=== PATIENT | female | born 1975 | race Caucasian/White ===

== ENCOUNTER 2022-12-15 08:42 | Outpatient (OUT) | payer OTHER, SELFPAY ==
--- NOTE | 2022-12-15 08:48 | XR_ITS ---
The [address] [address] Patient Name: WYATT GONZALEZ MRN: [id number] date: 1975 Sex: F Assigned Patient Location: [facility] Current Patient Location: RAD Accession/Order Number: [id number] Exam Date: 12/15/2022 08:48 Report Date: 12/15/2022 10:15 At the request of: YOUSUF WOLFF Procedure: XR foot RT min 3V PROCEDURE: XR foot RT min 3V DATE: 12/15/2022 7:48 AM CDT COMPARISONS: 11/16/2021 CLINICAL INDICATION: RIGHT FOOT PAIN FINDINGS: There is no evidence of fractures or other acute osseous abnormalities. There is again mild hallux valgus deformity. There is again osseous prominence of the distal and medial aspect of the first metatarsal with overlying soft tissue prominence consistent with bunion. This is a stable finding from previous exam. XR/XR foot RT min 3V IMPRESSION: Right foot radiographs are stable from 11/07/2021, as discussed above. Electronically authenticated by: ADELAIDA CARSON Date: 12/15/2022 10:15
== END 2022-12-15 08:43 | disposition home or self-care (01) ==
LOC: RAD 08:42
PROVIDERS: Visit Provider Physician Assistant
DX: M79.671 Pain in right foot (principal)
CPT/HCPCS: 73630

== ENCOUNTER 2023-08-24 08:31 | Outpatient (OUT) | payer OTHER, SELFPAY ==
--- NOTE | 2023-08-24 08:55 | ECG_ITS ---
The [facility] Test Date: 2023-08-24 Pat Name: WYATT GONZALEZ Department: Room: - Gender: Female Slurry Mixer: : 1975 Requested By: CHYNA SELLERS Order Number: [id number] Reading MD: NICKY HERNANDEZ Measurements Intervals [place] Rate: 66 P: 76 AK: 165 QRS: 61 QRSD: 89 T: 72 QT: 387 QTc: 406 Interpretive Statements SINUS RHYTHM No previous ECG available for comparison Electronically Signed On 08-24-2023 23:02:07 EDT by NICKY HERNANDEZ
--- NOTE | 2023-08-24 09:33 | P.GSHP_ITS ---
History of Present Illness History of Present Illness Chief complaint: right foot hallux valgus Narrative: Patient presents for preadmission testing. The patient reports a long history of right foot bunion deformity and hammertoes. She states she has tried many conservative treatments with no relief, she states she has one pair shoes that she feels she can tolerate at this time. She denies numbness, tingling, weakness, or any other complaints. Review of Systems ROS Narrative REVIEW OF SYSTEMS: Negative except as stated in HPI, ten or more systems reviewed. Constitutional: No fever , chills, weakness ENT: No sore throat or epistaxis Cardiovascular: No edema, chest pain, palpitations, or activity intolerance Respiratory: No shortness of breath, cough, or wheezing Gastrointestinal: No abdominal pain, constipation, diarrhea, or vomiting Genitourinary: No dysuria or hematuria Neurological: No numbness, tingling, weakness, or headache Psychiatric: No mood changes PFSH PFS Medical History (Updated 08/24/23 @ 09:32 by Landy Cedillo NP) Hammertoe of right foot ?M20.41 - Other hammer toe(s) (acquired), right foot (ICD-10) Other specified joint disorders, right ankle and foot ?M25.871 - Other specified joint disorders, right ankle and foot (ICD-10) Toe deformity ?M20.60 - Acquired deformities of toe(s), unspecified, unspecified foot (ICD- 10) Hallux valgus (acquired), right foot ?M20.11 - Hallux valgus (acquired), right foot (ICD-10) Anxiety ?F41.9 - Anxiety disorder, unspecified (ICD-10) Migraine ?G43.909 - Migraine, unspecified, not intractable, without status migrainosus (ICD-10) Hypotension ?I95.9 - Hypotension, unspecified (ICD-10) Surgical History (Updated 08/24/23 @ 09:17 by Landy Cedillo NP) History of hysterectomy ?Z90.710 - Acquired absence of both cervix and uterus (ICD-10) History of breast augmentation ?Z98.82 - Breast implant status (ICD-10) Family History (Updated 08/24/23 @ 09:17 by Landy Cedillo NP) Other Family history of DVT Family history of hypertension Family history of lung cancer Family history of myocardial infarction Social History (Updated 08/24/23 @ 09:12 by Landy Cedillo NP) Within the past year, how often did you have a drink containing alcohol: 2-4 times a month Smoking status: Former smoker Non-prescribed substance use: denies use 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 Highest level of school completed/degree received: high school graduate Meds Home Medications and Allergies Home Medications ?Medication ?Instructions ?Recorded ?Confirmed ?Type clonazepam 1 mg tablet 1 mg PO DAILY 08/24/23 08/24/23 History conjugated estrogens 0.625 mg 0.625 mg PO DAILY 08/24/23 08/24/23 History tablet (Premarin) sumatriptan succinate 50 mg tablet 50 mg PO Q2H PRN migraine headache 08/24/23 08/24/23 History Allergies Allergy/AdvReac Type Severity Reaction Status Date / Time No Known Drug Allergies Allergy Verified 08/24/23 09:10 Exam Narrative Exam Narrative: Constitutional: Awake, alert, comfortable, well-appearing, nontoxic, interactive, vital signs as charted Head: Normocephalic, atraumatic Neck: Supple, normal appearance, normal range of motion, no meningeal signs, no lymphadenopathy Respiratory: No respiratory distress, breath sounds clear Cardiovascular: Regular rate and rhythm, strong and regular heart tones Musculoskeletal: Normal gait, no swelling or edema, Right foot obvious hallux valgus deformity with limited range of motion of the 1st MPJ, 2nd toe contracture noted, good capillary refill, sensation intact Skin: No rashes or induration, no lesions, only visible skin inspected Neuro: No neurological deficits, normal sensation Psychiatric: Oriented ?3, normal affect Assessment and Plan Assessment and Plan (1) Hammertoe of right foot: (2) Other specified joint disorders, right ankle and foot: (3) Toe deformity: (4) Hallux valgus (acquired), right foot: Plan Right 1st MPJ fusion, 2nd metatarsal osteotomy and correction of 2nd toe contracture with soft tissue balancing and bone graft as needed scheduled with Dr. Figueroa 09/07/2023.
== END 2023-08-24 08:32 | disposition home or self-care (01) ==
LOC: PST 08:34
PROVIDERS: PCP Family Medicine; Visit Provider Podiatrist Foot & Ankle Surgery
DX: Z01.810 Encounter for preprocedural cardiovascular examination (principal); Z01.818 Encounter for other preprocedural examination; M20.11 Hallux valgus (acquired), right foot; M20.41 Other hammer toe(s) (acquired), right foot
CPT/HCPCS: 93005; G0463

== ENCOUNTER 2023-09-07 07:16 | Day surgery (SDC) | payer OTHER, SELFPAY ==
[2023-08-24 09:26] VITALS: BP 113/76; PULSE 74; RESP 18; TEMP 36.2; O2SAT 98; BMI 20.2
[2023-09-07] VITALS (12 sets, daily range): BP systolic 97–110; BP diastolic 54–75; PULSE 62–73; TEMP 36.1–36.4; O2SAT 95–99; BMI 21.2
--- NOTE | 2023-09-07 | FL_ITS ---
[address] [address] Patient Name: WYATT GONZALEZ MRN: [id number] date: 1975 Sex: F Assigned Patient Location: [facility] Current Patient Location: [facility] Accession/Order Number: [id number] Exam Date: 09/07/2023 10:20 Report Date: 09/08/2023 08:12 At the request of: LULU FARIAS Procedure: FL fluoroscopy <1hr NON-READ EXAM: FL fluoroscopy <1hr NON-READ HISTORY: TECHNIQUE: FINDINGS: Please see Operative Report. Electronically authenticated by: RADIOLOGIST NO Date: 09/08/2023 08:12
[2023-09-07 07:26] LABS: Basophils Percent Auto 0.6 % (0.2-2.0); Eosinophils Absolute Auto 0.3 10^3/uL (0.0-0.7); Eosinophils Percent Auto 3.6 % (0.9-7.0); Hematocrit 37.8 % (36.0-48.0); Hemoglobin 12.1 g/dL (12.0-16.0); Immature Granulocytes Abs Auto 0.02 10^3/uL (0.00-0.03); Immature Granulocytes Pct Auto 0.3 % (0.0-0.5); Lymphocytes Absolute Auto 2.6 10^3/uL (1.2-3.8); Mean Corpuscular Hemoglobin 29.1 pg (26.7-34.0); Mean Corpuscular Volume 90.9 fL (81.0-99.0); Mean Platelet Volume 10.3 fL (9.5-13.5); Monocytes Absolute Auto 0.5 10^3/uL (0.3-0.8); Monocytes Percent Auto 7.4 % (1.7-12.0); Neutrophils Absolute Auto 3.7 10^3/uL (1.4-6.5); Neutrophils Percent Auto 52.1 % (43.0-75.0); Platelet Count 222 10^3/uL (150-450); Red Blood Count 4.16 10^6/uL (4.20-5.40); Red Cell Distribution Width 12.9 % (11.0-15.0); White Blood Count 7.2 10^3/uL (4.0-11.0)
[2023-09-07 07:43] LABS: Glucometer 92 mg/dL (74-106)
[2023-09-07] MEDS: LACTATED RINGER'S SOLUTION 1,000 ML 50 ML IV ×2 (07:44→10:39)
--- NOTE | 2023-09-07 09:03 | PC.NURSE ---
Patient was consented by Dr. Delgado for regional block, Time out was completed at 0832. Monitors and O2 placed on patient. Patient positioned for first block on her back. Block was completed from 0836 to 0840 without complication. Patient was then repositioned onto her side and a popliteal block was performed from 0843 to 0846. Bedside ultrasound was used to locate both areas. Patient tolerated both areas well. Monitors and O2 remain in place. Vitals remained stable throughout process and post block.
[2023-09-07] MEDS: CEFAZOLIN SODIUM/DEXTROSE,ISO 2 GM/50 ML PIGGYBACK IV (09:47)
--- NOTE | 2023-09-07 11:55 | XR_ITS ---
The [address] [address] Patient Name: WYATT GONZALEZ MRN: [id number] date: 1975 Sex: F Assigned Patient Location: [facility] Current Patient Location: Accession/Order Number: [id number] Exam Date: 09/07/2023 12:00 Report Date: 09/08/2023 07:26 At the request of: MIKI ELIAS Procedure: XR foot RT min 3V PROCEDURE: XR foot RT min 3V HISTORY: Postop x-ray pacu. COMPARISON: XR foot right 12/15/2022 FINDINGS: BONES:Mechanical fusion of the first metatarsophalangeal joint via dorsal plate and screws. Resection of head of second proximal phalanx. SOFT TISSUES:Small amount of dorsal subcutaneous air consistent with recent surgery. EFFUSION:None visible. OTHER: Images were obtained to cast material which slightly limits evaluation. XR/XR foot RT min 3V IMPRESSION: 1. Postoperative findings detailed above. Electronically authenticated by: MODESTA DIALLO Date: 09/08/2023 07:26
[2023-09-07 12:22] LABS: Glucometer 108 mg/dL (74-106)
--- NOTE | 2023-09-07 13:34 | PM.ORONB ---
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 First metatarsal phalangeal joint fusion 2. 2nd hammertoe correction with PIPJ arthroplasty 3. correction of 2nd metatarsal phalangeal joint contracture with capsulotomy and extensor tendon lengthening *All procedures were performed on the RIGHT foot INDICATION FOR PROCEDURE: patient is a 48-year-old healthy female who has had worsening pain and dysfunction associated with primarily her right great toe but also pain associated with the 2nd toe primarily at the tip of the toe in shoes as well as over the dorsal aspect of the proximal interphalangeal joint. Over the last couple of years she has had difficulty with finding comfortable shoes and pain was affecting activities of daily living including work and exercise. I discussed potential risks and benefits of surgical intervention versus continued nonsurgical treatment nature worsening pain which did not respond to nonsurgical treatment including shoe and activity modification and OTC pain medicine she wished to undergo the above procedures. INTRAOPERATIVE FINDINGS: Great toe is in a valgus position which abutted the 2nd toe. deformity of the 1st and 2nd toes were reducible . Range of motion of the 1st MPJ was track bound. Bone quality is within normal limits given patient's age and gender. Once the PIPJ deformity was corrected there is residual deformity and contracture of the 2nd metatarsal phalangeal joint. The combination of capsulotomy and extensor tendon lengthening corrected all residual malalignment in the 2nd metatarsophalangeal joint. The plantar plate was intact with direct visualization. PROCEDURE IN DETAIL: Patient was identified in pre op and consent was reviewed. Correct side and site were identified and marked. Pre-op antibiotics were started. Patient was brought to OR suite and place on table in a supine position. General anesthesia was administered. A tourniquet was applied. Operative extremity was prepped and draped in usual sterile fashion. Formal time-out was performed and the foot/ankle were exsanguinated and tourniquet inflated. Incision created over dorsal aspect of the 1st MPJ. Bleeders coagulated. EHL protected throughout the procedure. Capsulotomy performed and McGlammry elevator inserted into 1st MPJ. Guide Pin place in 1st metatarsal head. Conical reamers used on 1st metatarsal head to remove cartilage and subchondral bone. Guide pin removed. Conical reamers used on proximal phalanx in a similar manner. 2.0 mm drill used to on each side of the joint. The site was irrigated. 1cc of bone allograft graft was then packed into the fusion site. A stab incision was placed on the medial aspect of the hallux and blunt dissection down to the proximal phalanx base was performed. A guide wire was then used to pin the MPJ in a rectus position under fluoroscopic guidance. Position was checked both on the table and under fluoroscopy. A saw was used to contour the dorsal aspect of the 1st metatarsal and proximal phalanx to accommodate plate fixation. A 3.[address] over the fusion site and temporarily fixed. Then commercial airplane pilot holes were drilled for locking 3.5 mm screws which were measured and placed according to the manufactor's standard directions. Temporary fixation was removed and additional screws were placed. Again position was checked under fluoroscopy as well as on the table however it was noted that the joint had slightly distracted. To correct this issue the proximal three plate screws were removed as was the guidewire. I then held the reduction of the toe with good bony apposition of the 1st metatarsoophalangeal joint while my clinical assistant drilled the holes for the proximal plate screws. Two locking screws and one nonlocking screw placed accordingly. Position and hardware was checked under fluoroscopy as well as under direct visualization noting good bony apposition, stable hardware and rectus position of the great toe. Sagittal saw was used to remove residual medial eminence and the head was contoured with a rasp. Then a guidewire was placed from the proximal phalanx base at the medial aspect through the previously placed stab incision under fluoroscopy. Screw length was measured and the pin was advanced into the 2nd metatarsal. A countersink was used followed by a cannulated drill. Then a 3.5 mm cannulated screw was placed according to the advanced practice registered nurse's directions. Again position of the great toe and hardware placement were checked on the table and under fluoroscopy. The surgical site was irrigated with copious amounts of sterile saline. The incision was then closed in layers. With attention to the 2nd digit a dorsal linear incision was created over the PIPJ. Sharp and blunt dissection down to the extensor tendon was performed. The tendon was incised transversely then reflected proximally. A sagittal saw was used to remove the proximal phalanx head. The site was flushed with sterile saline. there was correction of the deformity at the PIPJ however there was residual deformity and contracture of the metatarsophalangeal joint. The incision was then extended proximally to the 2nd metatarsal head and a combination sharp and blunt dissection gained access to the capsule of the metatarsophalangeal joint which was released sharply with a scalpel and then with a McGlamry elevator. All residual deformity was now corrected however within the extensor tendon was reapproximated and resulted in dorsiflexion at the metatarsophalangeal joint therefore decision was made to perform extensor tendon lengthening. The proximal stump of the tendon was transected longitudinally allowing the medial slip of the tendon to be reflected distally which was then reapproximated to the distal stump at the level of the PIPJ. The tendon was repaired with absorbable suture. surgical site was irrigated with copious saline and the incision was closed in layers. The tourniquet was deflated and a prompt hyperemic response was noted. A dry sterile dressing consisting of Xeroform on the incisions followed by 4 x 4 gauze, ABDs, and Kerlix were applied. Multiple layers of cast padding were then applied to ensure all bony prominences were well-padded. A plaster posterior splint was then applied which was held in place by Ricky wraps. Capillary refill time to all digits was evaluated and had appropriate response. POSTOPERATIVE PLAN: Discharge home under family's care Post op instructions provided verbally and written prescription(s) were placed in chart NWB operative foot/ankle x1 wk Follow-up in 1 week Implants: Medline plate/screws [employer] allograft Anesthesia: regional and General-LMA Surgeon: Andrae Figueroa [employer] Architect: Sukhjinder Dai Estimated blood loss (mL): 10 Pathology: none sent Condition: stable Disposition: PACU
== END 2023-09-07 13:20 | disposition home or self-care (01) ==
PROVIDERS: PCP Family Medicine; Visit Provider Podiatrist Foot & Ankle Surgery
PROC: (CPT 1470; principal; 2023-09-07 08:55)
DX: M20.11 Hallux valgus (acquired), right foot (principal); M20.41 Other hammer toe(s) (acquired), right foot; M24.574 Contracture, right foot; F41.9 Anxiety disorder, unspecified; Z90.710 Acquired absence of both cervix and uterus; Z98.82 Breast implant status; Z87.891 Personal history of nicotine dependence; M20.5X1 Other deformities of toe(s) (acquired), right foot; M25.871 Other specified joint disorders, right ankle and foot
CPT/HCPCS: 28234; 28285; 28750; 36415; 64445; 64447; 73630; 76000; 82948; 85025; C1713; J1094; J2704

== ENCOUNTER 2023-09-28 10:29 | Outpatient (OUT) | payer OTHER, SELFPAY ==
--- NOTE | 2023-09-28 | XR_ITS ---
The [address] [address] Patient Name: WYATT GONZALEZ MRN: [id number] date: 1975 Sex: F Assigned Patient Location: Current Patient Location: Accession/Order Number: [id number] Exam Date: 09/28/2023 10:32 Report Date: 09/28/2023 13:04 At the request of: YOUSUF WOLFF Procedure: XR foot RT min 3V PROCEDURE: XR foot RT min 3V COMPARISON: , 12/15/2022 HISTORY: RIGHT FOOT PAIN FINDINGS: BONES:Stable dorsal fusion first metatarsal-phalangeal joint with no acute fracture, dislocation or mechanical failure. Shave osteotomy medial head of the first metatarsal. Remote resection head of the second proximal phalanx. SOFT TISSUES:Negative. No visible soft tissue swelling. EFFUSION:None visible. OTHER: Negative. XR/XR foot RT min 3V IMPRESSION: Stable postsurgical changes with no mechanical failure Electronically authenticated by: FILIBERTO CHASE Date: 09/28/2023 13:04
== END 2023-09-28 10:30 | disposition home or self-care (01) ==
LOC: EC 10:30
PROVIDERS: PCP Family Medicine; Visit Provider Physician Assistant
DX: M20.11 Hallux valgus (acquired), right foot (principal); Z98.890 Other specified postprocedural states
CPT/HCPCS: 73630

== ENCOUNTER 2023-10-18 09:26 | Outpatient (OUT) | payer OTHER, SELFPAY ==
--- NOTE | 2023-10-18 | XR_ITS ---
The [address] [address] Patient Name: WYATT GONZALEZ MRN: [id number] date: 1975 Sex: F Assigned Patient Location: Current Patient Location: Accession/Order Number: [id number] Exam Date: 10/18/2023 09:27 Report Date: 10/18/2023 11:17 At the request of: LULU FARIAS Procedure: XR foot RT min 3V PROCEDURE: XR foot RT min 3V COMPARISON: 09/28/2023 HISTORY: RIGHT FOOT PAIN FINDINGS: BONES:Stable fusion the first metatarsal-phalangeal joint with a dorsal plate and multiple screws. No acute fracture, dislocation or mechanical failure. SOFT TISSUES:Negative. No visible soft tissue swelling. EFFUSION:None visible. OTHER: Negative. XR/XR foot RT min 3V IMPRESSION: Stable fusion first metatarsal-phalangeal joint Electronically authenticated by: FILIBERTO CHASE Date: 10/18/2023 11:17
--- OUTSIDE RECORDS SUMMARY | 2023-10-18 09:41 | XMS_ITS | CCD ---
Author Organization [facility] Care Team Providers Care [facility] Social Worker Name Role Phone ALISHA SELLERS Primary Care Physician VERITO, DR ALISHA Carpio Admitting Unavailable VERITO, DR ALISHA Carpio Attending Unavailable VERITO, DR ALISHA Carpio Primary Care Unavailable SELLERS, DR ALISHA Carpio Consulting Unavailable YOUSUF WOLFF Admitting Unavailable YOUSUF WOLFF Attending Unavailable VERITO, DR ALISHA Carpio Primary Care Unavailable [place], DR FILIBERTO Prince Consulting Unavailable YOUSUF WOLFF Consulting Unavailable VERITO, DR ALISHA Carpio Admitting Unavailable VERITO, DR ALISHA Carpio Attending Unavailable VERITO, DR ALISHA Carpio Primary Care Unavailable VERITO, DR ALISHA Carpio Consulting Unavailable Bernabe Eller Attending Unavailable Misty NELSON Attending Unavailable Sharan Asher Attending Unavailable Misty NELSON Attending Unavailable Misty NELSON Admitting Unavailable Alisha Sellers Unavailable MD Alisha Sellers Primary Care Provider DO Hannah Luu Attending Provider Kedar Diaz Unavailable HANNAH LUU Attending Unavailable ANGEL RIZO Attending Unavailable MD Alisha Sellers Primary Care Provider KIRAN Cedillo Attending Provider [phone] Alisha Sellers Primary Care Unavailable Natalia Cedillo Admitting Unavailable Natalia Cedillo Attending Unavailable Alisha Sellers Primary Care Unavailable Hannah Luu Admitting Unavailable Hannah Luu Attending Unavailable Allergies Allergy Classification Reported Allergen(s) Allergy Type Date of Onset Reaction(s) Facility (2 sources) patient allergy list reviewed by nurse or physicia Propensity to adverse reactions 4 Comment:Done [facility] Other (2 sources) NONE KNOWN ALLERGIES Propensity to adverse reactions 4 Unknown [facility] Other (2 sources) Allergies Reconciled Propensity to adverse reactions Unknown [facility] Other Medications Current Medications Medication Drug Class(es) Dates Sig (Normalized) Sig (Original) acetaminophen 325 mg / HYDROcodone bitartrate 5 mg oral tablet (3 sources) Opioid Agonist Start: 11-03-2019 [place] 325 mg-5 mg oral tablet 1 tab(s), Oral, q4hr for pain, 12 tab(s), Refill(s) 0 Start Date: 11/03/19 Status: Ordered alendronic acid 70 mg oral tablet (2 sources) Bisphosphonate Start: 09-12-2023 take 70 mg by mouth every week Alendronate Active 70 MG PO every week September 12, 2023 12:00am 24 hr amphetamine aspartate 3.75 mg / amphetamine sulfate 3.75 mg / dextroamphetamine saccharate 3.75 mg / dextroamphetamine sulfate 3.75 mg extended release oral capsule (3 sources) Central Nervous System Stimulant Start: 03-15-2019 amphetamine-dextr oamphetamine 15 mg oral capsule, extended release Refill(s) 0 Start Date: 03/15/19 Status: Ordered azithromycin 250 mg oral tablet (1 source) Macrolide Antimicrobial Start: 12-29-2021 azithromycin 250 mg Tab 250 mg, Oral, As Directed, # 6 tab(s), Refills(s) 0, Pharmacy: [id number], 155, cm, 12/29/21 20:14:00 EDT, Height/Length Dosing, 49, kg, 12/29/21 20:14:00 EDT, Weight Dosing Start Date: 12/29/21 Status: Ordered brompheniramine maleate 0.4 mg/ml / dextromethorphan hydrobromide 2 mg/ml / pseudoephedrine hydrochloride 6 mg/ml oral solution (3 sources) alpha-Adrenergic Agonist, Uncompetitive O-muzohv-C-aspartat e Receptor Antagonist, Sigma-1 Agonist Start: 03-15-2019 take 10 mL by mouth four times daily Bromfed DM oral syrup 10 mL, Oral, QID for cold symptoms, 200 mL, Refill(s) 0, [facility] #[id number] Start Date: 03/15/19 Status: Ordered buPROPion hydrochloride 75 mg oral tablet (9 sources) Aminoketone Start: 11-07-2021 buPROPion 75 mg Tab Refills(s) 0 Start Date: 11/07/21 Status: Ordered busPIRone hydrochloride 5 mg oral tablet (2 sources) Start: 09-12-2023 take 5 mg by mouth twice daily Buspirone Active 5 MG PO Twice daily September 12, 2023 12:00am clonazePAM 1 mg oral tablet (16 sources) Benzodiazepine Start: 07-20-2023 End: 09-19-2023 take 1 mg by mouth once daily Clonazepam Active 1 MG PO Daily September 19, 2023 2:56pm Start: 03-24-2023 take 1 tablet by kevin th once daily clonazePAM 1 MG TAKE 1 TABLET BY MOUTH EVERY DAY for Feb, Active Start: 12-26-2022 clonazePAM 1 M G TAKE 1 TABLET BY MOUTH EVERY DAY FOR 30 DAYS Orally Once a day for 30 Nov, Active Start: 09-26-2022 clonazePAM 1 M G TAKE 1 TABLET BY MOUTH EVERY DAY FOR 30 DAYS for 30 September, Active Start: 06-28-2022 take 1 tablet by kevin th every twenty-four hours KlonoPIN 1 MG 1 tablet Orally Once a day for 30 days May, Active Start: 03-15-2019 clonazepam 0.5 mg oral tablet Refills(s) 0 Start Date: 03/15/19 Status: Ordered estrogens, conjugated (correction) 0.625 mg oral tablet (14 sources) Estrogen Start: 09-11-2023 take 1 tablet by mouth once daily Conjugated Estrogens (Premarin) 0.625 mg tablet Active 1 TAB PO Daily September 11, 2023 12:00am [employer] tablet Orally ONCE A DAY; Note: Source Status: Taking; Provider: Verito Brito ( ) Start: 03-15-2019 Premarin 0.625 mg Tab Refills(s) 0 Start Date: 11/07/21 Status: Ordered hydrocortisone 25 mg/ml topical cream (10 sources) Corticosteroid Start: 09-11-2023 End: 09-12-2023 Hydrocortisone Active 1 APPLIC TOPICAL Daily September 12, 2023 11:05am [employer] application Externally Once a day; Note: Source Status: Taking; Provider: Verito Brito ( ) Hydrocortisone 2 .5 % 1 application Externally Once a day Active metroNIDAZOLE 500 mg oral tablet (2 sources) Nitroimidazole Antimicrobial Start: 11-07-2021 End: 11-14-2021 take 1 tablet by mouth every twelve hours Flagyl 500 mg Tab 500 mg = 1 tab(s), Oral, q12hr, X 7 day(s), # 14 tab(s), Refills(s) 0, [facility]: [id number], 156, cm, 11/07/21 14:59:00 EDT, Height/Length Dosing, 49.8, kg, 11/07/21 14:59:00 EDT, Weight Dosing Start Date: 11/07/21 Stop Date: 11/14/21 Status: Ordered Mucinex D Max Strength oral tablet, extended release (1 source) Start: 12-29-2021 End: 01-05-2022 Mucinex D Max Strength oral tablet, extended release 1 tab(s), Oral, q12hr for 7 day(s), 14 tab(s), Refill(s) 0, [id number], 155, cm, 12/29/21 20:14:00 EDT, Height/Length Dosing, 49, kg, 12/29/21 20:14:00 EDT, Weight Dosing Start Date: 12/29/21 Stop Date: 01/05/22 Status: Ordered SUMAtriptan 50 mg oral tablet (2 sources) Serotonin-1b and Serotonin-1d Receptor Agonist Start: 09-11-2023 take 1 tablet by mouth twice daily as needed, then take 1 tablet by mouth twice daily as needed Sumatriptan Succinate Active 1 TAB PO Twice daily September 11, 2023 12:00am FreeTextSi tablet at least 2 hours between doses as needed Orally Twice a day; Note: Source Status: Start; Refills: 2; Provider: Sellers Alisha E Ventolin HFA 90 mcg/inh Aerosol (3 sources) Start: 03-15-2019 take 2 puff(s) by inhalation once for wheezing Ventolin HFA 90 mcg/inh Aerosol 2 puff(s), Inhalation, Once for wheezing, 18 gram, Refill(s) [id number] Start Date: 03/15/19 Status: Ordered Completed/Discontinued Medications Medication Drug Class(es) Dates Sig (Normalized) Sig (Original) cefuroxime 500 mg oral tablet (6 sources) Cephalosporin Antibacterial Start: 03-23-2016 take 1 tablet by mouth twice daily Ceftin 500 MG 1 tablet Orally Twice a day for 10 day(s) Feb, Not-Taking fluconazole 150 mg oral tablet (12 sources) Azole Antifungal Start: 03-23-2016 take 1 tablet by mouth every twenty-four hours Diflucan 150 MG 1 tablet Orally Once a day for 1 day(s) Feb, Not-Taking Fluconazole 100 MG 1 tablet Orally Active venlafaxine 75 mg oral tablet (6 sources) Serotonin and Norepinephrine Reuptake Inhibitor take 1 tablet by mouth once daily at mealtime Effexor 75 MG 1 tablet with food Orally ONCE A DAY Not-Taking Problems Active Problems Problem Classification Problem Date Documented Date Episodic/Chronic Acquired foot deformities (8 sources) Acquired hallux valgus; Translations: [Hallux valgus (acquired), right foot] Chronic Acquired foot deformities (2 sources) Bunion; Translations: [Bunion of unspecified foot] 09-12-2023 Episodic Administrative/social admission (2 sources) Counseling about tobacco use; Translations: [Tobacco abuse counseling] Episodic Anxiety disorders (20 sources) Anxiety; Translations: [Anxiety disorder, unspecified] Onset: 08-01-2013 03-15-2019 Chronic Attention-deficit, conduct, and disruptive behavior disorders (11 sources) Attention deficit hyperactivity disorder, predominantly inattentive type; Translations: [Attention and concentration deficit] Onset: 04-30-2018 03-15-2019 Chronic Cardiac dysrhythmias (6 sources) Tachycardia; Translations: [Tachycardia, unspecified] Episodic Genitourinary symptoms and ill-defined conditions (1 source) Dysuria; Translations: [Dysuria] Onset: 11-07-2021 Episodic Hemorrhoids (10 sources) Internal hemorrhoids; Translations: [Other hemorrhoids] 09-12-2023 Episodic Inflammation; infection of eye (except that caused by tuberculosis or sexually transmitteddisease) (8 sources) Conjunctivitis; Translations: [Unspecified conjunctivitis] Episodic Inflammatory diseases of female pelvic organs (2 sources) Acute vaginitis; Translations: [Acute vaginitis] Episodic Mood disorders (10 sources) Acute depression; Translations: [Acute depression] Onset: 11-03-2015 Chronic Mycoses (8 sources) Candidiasis of vagina; Translations: [Vaginal candidiasis] Onset: 02-21-2009 Episodic Nonmalignant breast conditions (2 sources) Fibrocystic disease of breast; Translations: [Diffuse cystic mastopathy] Onset: 03-29-2008 Chronic Other connective tissue disease (14 sources) Pain in limb; Translations: [Pain in right toe(s)] Episodic Other connective tissue disease (2 sources) Pain in right foot; Translations: [Pain in right foot] Episodic Other female genital disorders (1 source) Noninflammatory disorder of the vagina; Translations: [Other specified noninflammatory disorders of vagina] Onset: 11-07-2021 Episodic Other nervous system disorders (2 sources) Reduced concentration; Translations: [Attention and concentration deficit] Chronic Other nutritional; endocrine; and metabolic disorders (2 sources) Body mass index less than 20; Translations: [Body mass index (BMI) 19.9 or less, adult] Episodic Other upper respiratory infections (8 sources) Bacterial sinusitis; Translations: [Chronic sinusitis, unspecified] Chronic Residual codes; unclassified (8 sources) Insomnia; Translations: [Insomnia, unspecified] Episodic Spondylosis; intervertebral disc disorders; other back problems (8 sources) Cervical spondylosis without myelopathy; Translations: [Spondylosis without myelopathy or radiculopathy, cervical region] Chronic Spondylosis; intervertebral disc disorders; other back problems (1 source) Radiculopathy, cervical region Episodic Substance-related disorders (6 sources) Tobacco user; Translations: [Nicotine dependence, cigarettes, uncomplicated] Chronic Unclassified (2 sources) Acute candidiasis of vulva and vagina; Translations: [Acute candidiasis of vulva and vagina] Unclassified (2 sources) Exposure to acute respiratory syndrome coronavirus 2; Translations: [Contact with and (suspected) exposure to COVID-19] Unclassified (1 source) Encounter for screening mammogram for malignant neoplasm of breast; Translations: [Encounter for screening mammogram for malignant neoplasm of breast] Onset: 12-03-2022 Past or Other Problems Problem Classification Problem Date Documented Date Episodic/Chronic Immunizations and screening for infectious disease (2 sources) Exposure to sexually transmissible disorder; Translations: [Contact with or exposure to venereal diseases] Onset: 02-21-2009 Episodic Nonspecific chest pain (2 sources) Chest pain; Translations: [Chest pain, unspecified] Onset: 04-16-2014 Episodic Other connective tissue disease (4 sources) Pain in right foot; Translations: [PAIN IN RIGHT FOOT] Onset: 11-16-2021 Episodic Other injuries and conditions due to external causes (2 sources) Contusion; Translations: [Contusion of unspecified site] Onset: 05-01-2017 Episodic Other upper respiratory infections (4 sources) Acute sinusitis, unspecified; Translations: [Acute pharyngitis] Onset: 05-01-2017 Episodic Sprains and strains (2 sources) Neck sprain; Translations: [Neck sprain and strain] Onset: 08-01-2013 Episodic Results Test Name Value Interpretation Reference Range Facility Alanine aminotransferase [En zymatic activity/volume] in Serum or PlasmaOrdered By: Natalia Cedillo on 10-04-2023 ALT [Catalytic activity/Vol] 18 U/L 7-52 [facility] Albumin [Mass/volume] in Ser um or Plasma by Bromocresol green (BCG) dye binding methoOrdered By: Natalia Cedillo on 10-04-2023 Albumin BCG dye [Mass/Vol] 4.8 g/dL 3.5-5.7 [facility] Alkaline phosphatase [Enzyma tic activity/volume] in Serum or PlasmaOrdered By: Natalia Cedillo on 10-04-2023 ALP [Catalytic activity/Vol] 48 U/L 34-104 [facility] Aspartate aminotransferase [ Enzymatic activity/volume] in Serum or PlasmaOrdered By: Natalia Cedillo on 10-04-2023 AST [Catalytic activity/Vol] 20 U/L 13-39 [facility] Bilirubin.total [Mass/volume ] in Serum or PlasmaOrdered By: Natalia Cedillo on 10-04-2023 Bilirubin [Mass/Vol] 0.6 mg/dL 0.3-1.[address] [facility] CMP with reflex to A1Con Albumin [Mass/Vol] 4.8 g/dL Normal 3.5-5.7 [facility] Comment on above: Performed By: #### N ICOTINE QUAL #### [facility] , #### TSH3, CBCNO, CMP wRFX A1C, LIPID #### [facility] [address] Albumin/Globulin [Mass ratio] 1.7 {ratio} Normal [facility] Comment on above: Performed By: #### N ICOTINE QUAL #### [facility] , #### TSH3, CBCNO, CMP wRFX A1C, LIPID #### [facility] [address] ALP [Catalytic activity/Vol] 48 U/L Normal 34-104 [facility] Comment on above: Performed By: #### N ICOTINE QUAL #### [facility] , #### TSH3, CBCNO, CMP wRFX A1C, LIPID #### [facility] [address] [place] [address] [place] ALT [Catalytic activity/Vol] 18 U/L Normal 7-52 [facility] Comment on above: Performed By: #### N ICOTINE QUAL #### [facility] , #### TSH3, CBCNO, CMP wRFX A1C, LIPID #### [facility] [address] [place] [address] [place] Anion gap [Moles/Vol] 10.0 mmol/L Normal 6.0-15.0 [facility] Comment on above: Performed By: #### N ICOTINE QUAL #### [facility] , #### TSH3, CBCNO, CMP wRFX A1C, LIPID #### [facility] [address] AST [Catalytic activity/Vol] 20 U/L Normal 13-39 [facility] Comment on above: Performed By: #### N ICOTINE QUAL #### [facility] , #### TSH3, CBCNO, CMP wRFX A1C, LIPID #### [facility] [address] [place] [address] Bilirubin [Mass/Vol] 0.6 mg/dL Normal 0.3-1.0 [facility] Comment on above: Performed By: #### N ICOTINE QUAL #### [facility] , #### TSH3, CBCNO, CMP wRFX A1C, LIPID #### [address] Calcium [Mass/Vol] 10.0 mg/dL Normal 8.6-10.3 [facility] Comment on above: Performed By: #### N ICOTINE QUAL #### [facility] , #### TSH3, CBCNO, CMP wRFX A1C, LIPID #### [address] Chloride [Moles/Vol] 103 mmol/L Normal 98-107 [facility] Comment on above: Performed By: #### N ICOTINE QUAL #### [facility] , #### TSH3, CBCNO, CMP wRFX A1C, LIPID #### [place] [address] [place] CO2 [Moles/Vol] 29.6 mmol/L Normal 21.0-31.0 [facility] Comment on above: Performed By: #### N ICOTINE QUAL #### [facility] , #### TSH3, CBCNO, CMP wRFX A1C, LIPID #### [facility] [address] [place] [address] [place] Creatinine [Mass/Vol] 0.86 mg/dL Normal 0.60-1.20 [facility] Comment on above: Performed By: #### N ICOTINE QUAL #### [facility] , #### TSH3, CBCNO, CMP wRFX A1C, LIPID #### [place] [address] [place] GFR/1.73 sq M.predicted MDRD (S/P/Bld) [Vol rate/Area] mL/min/{1.73_m2} Normal [facility] Comment on above: Performed By: #### N ICOTINE QUAL #### [facility] , #### TSH3, CBCNO, CMP wRFX A1C, LIPID #### [address] Globulin (S) [Mass/Vol] 2.8 g/dL Normal T [facility] Comment on above: Performed By: #### N ICOTINE QUAL #### [facility] , #### TSH3, CBCNO, CMP wRFX A1C, LIPID #### [address] Glucose [Mass/Vol] 85 mg/dL Normal 70-100 [facility] Comment on above: Performed By: #### N ICOTINE QUAL #### [facility] , #### TSH3, CBCNO, CMP wRFX A1C, LIPID #### [place] [address] [place] Potassium [Moles/Vol] 3.6 mmol/L Normal 3.5-5.1 [facility] Comment on above: Performed By: #### N ICOTINE QUAL #### [facility] , #### TSH3, CBCNO, CMP wRFX A1C, LIPID #### [place] [address] [place] Protein [Mass/Vol] 7.6 g/dL Normal 6.4-8.9 [facility] Comment on above: Performed By: #### N ICOTINE QUAL #### [facility] , #### TSH3, CBCNO, CMP wRFX A1C, LIPID #### [place] [address] [place] Sodium [Moles/Vol] 139 mmol/L Normal 136-145 [facility] Comment on above: Performed By: #### N ICOTINE QUAL #### [facility] , #### TSH3, CBCNO, CMP wRFX A1C, LIPID #### [facility] [address] Urea nitrogen [Mass/Vol] 12 mg/dL Normal 7-25 [facility] Comment on above: Performed By: #### N ICOTINE QUAL #### [facility] , #### TSH3, CBCNO, CMP wRFX A1C, LIPID #### [facility] [address] [place] [id number] [place] Calcium [Mass/volume] in Ser um or PlasmaOrdered By: Natalia Cedillo on 10-04-2023 Calcium [Mass/Vol] 10.0 mg/dL 8.6-10.3 [facility] Carbon dioxide, total [Moles /volume] in Serum or PlasmaOrdered By: Natalia Cedillo on 10-04-2023 CO2 [Moles/Vol] 29.6 mmol/L 21.0-31.0 [facility] Chloride [Moles/volume] in S nahed or PlasmaOrdered By: Natalia Cedillo on 10-04-2023 Chloride [Moles/Vol] 103 mmol/L 98-[address] [facility] Cholesterol [Mass/volume] in Serum or PlasmaOrdered By: Natalia Cedillo on 10-04-2023 Cholesterol [Mass/Vol] 252 mg/dL 140-200 [facility] Comment on above: Chol less than 200 m g/dl low riskChol 201-239 mg/dl borderline riskChol 240 mg/dl and greater high risk Cholesterol in LDL Calc [Mas s/Vol]Ordered By: Natalia Cedillo on 10-04-2023 Cholesterol in LDL [Mass/Vol] 133 mg/dL 0-100 [facility] Comment on above: LDL ATP III CLASSIFI CATIONLDL less than 100 mg/dL OptimalLDL 100-129 mg/dL Near or above optimalLDL 130-159 mg/dL Borderline highLDL 160-189 mg/dL HighLDL greater than 189 mg/dL Very high Cholesterol in VLDL Calc [Ma ss/Vol]Ordered By: Natalia Cedillo on 10-04-2023 Cholesterol in VLDL [Mass/Vol] 30 mg/dL [facility] Creatinine [Mass/volume] in Serum or PlasmaOrdered By: Natalia Cedillo on 10-04-2023 Creatinine [Mass/Vol] 0.86 mg/dL 0.60-1.20 [facility] Erythrocyte distribution wid th Auto (RBC) [Ratio]Ordered By: Natalia Cedillo on 10-04-2023 Erythrocyte distribution width (RBC) [Ratio] 12.8 % 11.9-15.3 [facility] Globulin Calc (S) [Mass/Vol] Ordered By: Natalia Cedillo on 10-04-2023 Globulin (S) [Mass/Vol] 2.8 g/dL [facility] Glucose [Mass/volume] in Ser um or PlasmaOrdered By: Natalia Cedillo on 10-04-2023 Glucose [Mass/Vol] 85 mg/dL 70-100 [facility] Hematocrit Auto (Bld) [Volum e fraction]Ordered By: Natalia Cedillo on 10-04-2023 Hematocrit (Bld) [Volume fraction] 39.5 % 34.0-46.4 [facility] Hemoglobin [Mass/volume] in BloodOrdered By: Natalia Cedillo on 10-04-2023 Hemoglobin (Bld) [Mass/Vol] 13.2 g/dL 11.8-15.4 [facility] Hemogram CBC Without Diffon 10-04-2023 Erythrocyte distribution width (RBC) [Ratio] 12.8 % Normal 11.9-15.3 [facility] Comment on above: Performed By: #### N ICOTINE QUAL #### [facility] , #### TSH3, CBCNO, CMP wRFX A1C, LIPID #### [facility] [address] Hematocrit (Bld) [Volume fraction] 39.5 % Normal 34.0-46.4 [facility] Comment on above: Performed By: #### N ICOTINE QUAL #### [facility] , #### TSH3, CBCNO, CMP wRFX A1C, LIPID #### [address] Hemoglobin (Bld) [Mass/Vol] 13.2 g/dL Normal 11.8-15.4 [facility] Comment on above: Performed By: #### N ICOTINE QUAL #### [facility] , #### TSH3, CBCNO, CMP wRFX A1C, LIPID #### [address] MCH (RBC) [Entitic mass] 29.0 pg Normal 24.7-34.3 [facility] Comment on above: Performed By: #### N ICOTINE QUAL #### [facility] , #### TSH3, CBCNO, CMP wRFX A1C, LIPID #### [address] MCV (RBC) [Entitic vol] 86.7 fL Normal 80-100 [facility] Comment on above: Performed By: #### N ICOTINE QUAL #### [facility] , #### TSH3, CBCNO, CMP wRFX A1C, LIPID #### [address] Mean Corpuscular HGB Conc 33.4 g/dL Normal 32.0-35.0 [facility] Comment on above: Performed By: #### N ICOTINE QUAL #### [facility] , #### TSH3, CBCNO, CMP wRFX A1C, LIPID #### [address] Platelet mean volume (Bld) [Entitic vol] 9.8 fL Normal 6.3-10.7 [facility] Comment on above: Result Comment: PERF ORMED BY: [place] [address] PATHOLOGIST PRINCIPAL STATISTICAL SCIENTIST DHRUV PALMER M.D. Performed By: #### N ICOTINE QUAL #### [facility] , #### TSH3, CBCNO, CMP wRFX A1C, LIPID #### [address] Platelets (Bld) [#/Vol] 311 10*3/uL Normal 150-450 [facility] Comment on above: Performed By: #### N ICOTINE QUAL #### [facility] , #### TSH3, CBCNO, CMP wRFX A1C, LIPID #### [facility] [address] [place] [address] RBC (Bld) [#/Vol] 4.56 10*6/uL Normal 3.60-5.00 [facility] Comment on above: Performed By: #### N ICOTINE QUAL #### [facility] , #### TSH3, CBCNO, CMP wRFX A1C, LIPID #### [address] WBC (Bld) [#/Vol] 5.8 10*3/uL Normal 3.8-11.6 [facility] Comment on above: Performed By: #### N ICOTINE QUAL #### [facility] , #### TSH3, CBCNO, CMP wRFX A1C, LIPID #### [address] Leukocytes [#/volume] correc kim for nucleated erythrocytes in Blood by Automated counOrdered By: Natalia Cedillo on 10-04-2023 WBC corrected for nucl RBC Auto (Bld) [#/Vol] 5.8 10*3/uL 3.8-11.6 [facility] Lipid Panelon 10-04-2023 Cholesterol [Mass/Vol] 252 mg/dL High 140-200 [facility] Comment on above: Result Comment: Chol less than 200 mg/dl low risk Chol 201-239 mg/dl borderline risk Chol 240 mg/dl and greater high risk Performed By: #### N ICOTINE QUAL #### [facility] , #### TSH3, CBCNO, CMP wRFX A1C, LIPID #### [facility] [address] [place] [id number] [place] Cholesterol in HDL [Mass/Vol] 89 mg/dL Normal 23-92 [facility] Comment on above: Result Comment: HDL CHOL ATP-III CLASSIFICATION Cardiovascular Risk HDL > or equal to 60 mg/dL LOW HDL < 40 mg/dL HIGH Performed By: #### N ICOTINE QUAL #### [facility] , #### TSH3, CBCNO, CMP wRFX A1C, LIPID #### [facility] [address] Cholesterol.total/Lauren sterol in HDL [Mass ratio] 2.8 {ratio} Normal <5.0 [facility] Comment on above: Performed By: #### N ICOTINE QUAL #### [facility] , #### TSH3, CBCNO, CMP wRFX A1C, LIPID #### [facility] [address] LDL Cholesterol,Calculated 133 mg/dL High 0-100 [facility] Comment on above: Result Comment: LDL ATP III CLASSIFICATION LDL less than 100 mg/dL Optimal LDL 100-129 mg/dL Near or above optimal LDL 130-159 mg/dL Borderline high LDL 160-189 mg/dL High LDL greater than 189 mg/dL Very high Performed By: #### N ICOTINE QUAL #### [facility] , #### TSH3, CBCNO, CMP wRFX A1C, LIPID #### [facility] [address] [place] [address] [place] Triglyceride w/Reflex 151 mg/dL High 0-149 [facility] Comment on above: Result Comment: TRIG ATP III CLASSIFICATION TRIG less than 150 mg/dL Normal TRIG 150-199 mg/dL Borderline high TRIG 200-500 mg/dL High TRIG greater than 500 mg/dL Very high Standard traceable to the Center for Disease Conrtrol and Prevention (CDC) test method. Performed By: #### N ICOTINE QUAL #### [facility] , #### TSH3, CBCNO, CMP wRFX A1C, LIPID #### [facility] [address] [place] [address] VLDL CHOLESTEROL 30 mg/dL Normal [facility] Comment on above: Performed By: #### N ICOTINE QUAL #### [facility] , #### TSH3, CBCNO, CMP wRFX A1C, LIPID #### [facility] [address] MCH Auto (RBC) [Entitic mass ]Ordered By: Natalia Cedillo on 10-04-2023 MCH (RBC) [Entitic mass] 29.0 pg 24.7-34.3 [facility] MCHC Auto (RBC) [Mass/Vol]Or dered By: Natalia Cedillo on 10-04-2023 MCHC (RBC) [Mass/Vol] 33.4 g/dL 32.0-35.0 [facility] MCV Auto (RBC) [Entitic vol] Ordered By: Natalia Cedillo on 10-04-2023 MCV (RBC) [Entitic vol] 86.7 fL 80-100 [facility] Nicotine Metabolite, Qualon 10-04-2023 Nicotine Metabolite P Normal Cutoff=25 [facility] Comment on above: Result Comment: Ve rified by repeat analysis Performed at: [facility] [address] [id number] Pump Press Operator: Usha Linton MD, Phone: [phone] PERFORMED BY: [place] [address] PATHOLOGIST PRINCIPAL STATISTICAL SCIENTIST DHRUV PALMER M.D. Performed By: #### N ICOTINE QUAL #### [facility] , #### TSH3, CBCNO, CMP wRFX A1C, LIPID #### [facility] [address] [place] [address] No Panel InformationOrdered By: Natalia Cedillo on 10-04-2023 Estimated GFR (CKD-EPI) > 60.0 mL/Min [facility] Creatinine Clearance (Chem N/A [facility] Platelet mean volume Auto (B ld) [Entitic vol]Ordered By: Natalia Cedillo on 10-04-2023 Platelet mean volume (Bld) [Entitic vol] 9.8 fL 6.3-10.7 [facility] Platelets Auto (Bld) [#/Vol] Ordered By: Natalia Cedillo on 10-04-2023 Platelets (Bld) [#/Vol] 311 10*3/uL 150-450 [facility] Potassium [Moles/volume] in Serum or PlasmaOrdered By: Natalia Cedillo on 10-04-2023 Potassium [Moles/Vol] 3.6 mmol/L 3.5-5.1 [facility] Protein [Mass/volume] in Ser um or PlasmaOrdered By: Natalia Cedillo on 10-04-2023 Protein [Mass/Vol] 7.6 g/dL 6.4-8.9 [facility] RBC Auto (Bld) [#/Vol]Ordere d By: Natalia Cedillo on 10-04-2023 RBC (Bld) [#/Vol] 4.56 10*6/uL 3.60-5.00 [facility] Serum or plasma albumin/glob ulin mass ratioOrdered By: Natalia Cedillo on 10-04-2023 Albumin/Globulin [Mass ratio] 1.7 {ratio} [facility] Serum or plasma anion gap de terminationOrdered By: Natalia Cedillo on 10-04-2023 Anion gap [Moles/Vol] 10.0 mmol/L 6.0-15.0 [facility] Serum or plasma high density lipoprotein (HDL) cholesterol measurementOrdered By: Natalia Cedillo on 10-04-2023 Cholesterol in HDL [Mass/Vol] 89 mg/dL 23-92 [facility] Comment on above: HDL CHOL ATP-III CLA SSIFICATION Cardiovascular RiskHDL > or equal to 60 mg/dL LOWHDL < 40 mg/dL HIGH Serum or plasma total choles terol/high density lipoprotein (HDL) cholesterol mass ratOrdered By: Natalia Cedillo on 10-04-2023 Cholesterol.total/Lauren sterol in HDL [Mass ratio] 2.8 {ratio} <5.0 [facility] Sodium [Moles/volume] in Ser um or PlasmaOrdered By: Natalia Cedillo on 10-04-2023 Sodium [Moles/Vol] 139 mmol/L 136-145 [facility] Thyroid Stimulating Hormoneo n 10-04-2023 TSH Qn 2.05 m[IU]/L Normal 0.45-5.33 [facility] Comment on above: Result Comment: PERF ORMED BY: [facility] [address] [place] [address] PATHOLOGIST PRINCIPAL STATISTICAL SCIENTIST DHRUV PALMER M.D. Performed By: #### N ICOTINE QUAL #### [facility] , #### TSH3, CBCNO, CMP wRFX A1C, LIPID #### [facility] [address] Thyrotropin [Units/volume] i n Serum or PlasmaOrdered By: Natalia Cedillo on 10-04-2023 TSH Qn 2.05 m[IU]/L 0.45-5.33 [facility] Triglyceride [Mass/volume] i n Serum or PlasmaOrdered By: Natalia Cedillo on 10-04-2023 Triglyceride [Mass/Vol] 151 mg/dL 0-149 [facility] Comment on above: TRIG ATP III CLASSIF ICATIONTRIG less than 150 mg/dL NormalTRIG 150-199 mg/dL Borderline highTRIG 200-500 mg/dL High TRIG greater than 500 mg/dL Very highStandard traceable to the Center for Disease Conrtrol and Prevention (CDC) test method. Urea nitrogen [Mass/volume] in Serum or PlasmaOrdered By: Natalia Cedillo on 10-04-2023 Urea nitrogen [Mass/Vol] 12 mg/dL 7-25 [facility] Basophils Auto (Bld) [#/Vol] on 09-07-2023 Basophils (Bld) [#/Vol] 0.0 10 3/uL 0.0-0.1 [facility] Basophils/100 WBC Auto (Bld) on 09-07-2023 Basophils/100 WBC (Bld) 0.6 % 0.2-2.0 [facility] Eosinophils/100 WBC Auto (Bl d)on 09-07-2023 Eosinophils/100 WBC (Bld) 3.6 % 0.9-7.0 [facility] Erythrocyte distribution wid th Auto (RBC) [Ratio]on 09-07-2023 Erythrocyte distribution width (RBC) [Ratio] 12.9 % 11.0-15.0 [facility] Hematocrit Auto (Bld) [Volum e fraction]on 09-07-2023 Hematocrit (Bld) [Volume fraction] 37.8 % 36.0-48.0 [facility] Hemoglobin [Mass/volume] in Bloodon 09-07-2023 Hemoglobin (Bld) [Mass/Vol] 12.1 g/dL 12.0-16.0 [facility] Laboratory - Hematology and Cell countson 09-07-2023 Immature granulocytes/100 WBC (Bld) 0.3 % 0.0-0.5 [facility] Leukocytes [#/volume] correc kim for nucleated erythrocytes in Blood by Automated counon 09-07-2023 WBC corrected for nucl RBC Auto (Bld) [#/Vol] 7.2 10 3/uL 4.0-11.0 [facility] Lymphocytes Auto (Bld) [#/Vo l]on 09-07-2023 Lymphocytes (Bld) [#/Vol] 2.6 10 3/uL 1.2-3.8 [facility] Lymphocytes/100 WBC Auto (Bl d)on 09-07-2023 Lymphocytes/100 WBC (Bld) 36.0 % 20.5-60.0 [facility] MCH Auto (RBC) [Entitic mass ]on 09-07-2023 MCH (RBC) [Entitic mass] 29.1 pg 26.7-34.0 [facility] MCHC Auto (RBC) [Mass/Vol]on 09-07-2023 MCHC (RBC) [Mass/Vol] 32.0 g/dL 29.9-35.2 [facility] MCV Auto (RBC) [Entitic vol] on 09-07-2023 MCV (RBC) [Entitic vol] 90.9 fL 81.0-99.0 [facility] Monocytes Auto (Bld) [#/Vol] on 09-07-2023 Monocytes (Bld) [#/Vol] 0.5 10 3/uL 0.3-0.8 [facility] Monocytes/100 WBC Auto (Bld) on 09-07-2023 Monocytes/100 WBC (Bld) 7.4 % 1.7-12.0 [facility] Neutrophils Auto (Bld) [#/Vo l]on 09-07-2023 Neutrophils (Bld) [#/Vol] 3.7 10 3/uL 1.4-6.5 [facility] Neutrophils/100 WBC Auto (Bl d)on 09-07-2023 Neutrophils/100 WBC (Bld) 52.1 % 43.0-75.0 [facility] No Panel Informationon 09-06 Eosinophils # (Auto) 0.3 10 3/uL 0.0-0.7 [facility] Immature Granulocyte # (Auto) 0.02 10 3/uL 0.00-0.03 [facility] Platelet mean volume Auto (B ld) [Entitic vol]on 09-07-2023 Platelet mean volume (Bld) [Entitic vol] 10.3 fL 9.5-13.5 [facility] Platelets Auto (Bld) [#/Vol] on 09-07-2023 Platelets (Bld) [#/Vol] 222 10 3/uL 150-450 [facility] RBC Auto (Bld) [#/Vol]on RBC (Bld) [#/Vol] 4.16 10 6/uL 4.20-5.40 [facility] MM screening mammo BI w/CADo n 12-05-2022 MM screening mammo BI w/CAD [facility] [place] [address] Mammography Report Signed Patient: Wyatt Harrington MR#: [id number] : 1975 Acct:[id number] Age/Sex: 47 / F ADM Date: 12/03/22 Loc: [place] Room: Type: [facility] CLI Attending Dr: Hannah Luu DO Copies to: DO Alisha Newsome MD Ordering Provider: Hannah Luu DO Date of Service: 12/03/22 MM/MM screening mammo BI w/CAD: screening;Breast cancer screening BILATERAL Screening Full Field digital mammogram with 3-D imaging. Full field digital CC and MLO imaging performed. Additional implant displaced views obtained. CAD utilized. COMPARISON: 11/13/2021 HISTORY: Annual screening BREAST COMPOSITION: Scattered fibroglandular densities of the breast parenchyma identified BENIGN BREAST CALCIFICATIONS: Present VASCULAR CALCIFICATIONS: None DEVELOPING ARCHITECTURAL DISTORTION: None DEVELOPING BREAST NODULE: None DEVELOPING MALIGNANT CALCIFICATIONS: None AXILLARY LYMPH NODES: Normal POSTSURGICAL CHANGES: None Bilateral breast implants identified. MM/MM screening mammo BI w/CAD IMPRESSION: No mammographic evidence of malignancy. Routine follow-up recommended in one year. RESULT CODE: 2 Benign Findings(s) DENSITY CODE: 2 (approximately 25-50% glandular) FOLLOW UP: 1YR THE FALSE-NEGATIVE RATE OF MAMMOGRAPHY IS APPROXIMATELY 10%. IMAGING OF A PALPABLE ABNORMALITY MUST BE BASED ON CLINICAL GROUNDS. PATIENT WAS ENTERED INTO A REMINDER SYSTEM WITH A TARGET DUE DATE FOR THE NEXT MAMMOGRAM. Impression dictated by: Adiel Hamilton M.D.12/05/2022 7:38 AM Dictation Location: [facility] Transcribed By: [facility] 12/05/22737 Dictated By: Adiel Hamilton DO 12/05/22735 Signed By: 12/05/22737 Normal [facility] Hep Bs Abon 07-01-2022 HBV surface Ab Ql (S) Reactive Invalid Interpretation Code [facility] Comment on above: Result Comment: Non Reactive: Inconsistent with immunity, less than 10 mIU/mL Reactive: Consistent with immunity, greater than 9.9 mIU/mL Performed at: [facility] [address] [id number] PhD Priya Govea Performed By: #### 1 [id number], [id number], [id number] ####[facility] [address] [place] [address] Measles/Mumps/Rubella Immuni tyon 07-01-2022 MeV IgG IA Qn (S) 54.9 A unit/mL Invalid Interpretation Code Immune >16.4 [facility] Comment on above: Result Comment: Nega tive <13.5 Equivocal 13.5 - 16.4 Positive >16.4 Presence of antibodies to Rubeola is presumptive evidence of immunity except when acute infection is suspected. Performed By: #### 1 [id number], [id number], [id number], [id number] ####[address] [place] [address] MuV IgG IA Qn (S) 11.7 A unit/mL Invalid Interpretation Code Immune >10.9 [facility] Comment on above: Result Comment: Nega tive <9.0 Equivocal 9.0 - 10.9 Positive >10.9 A positive result generally indicates past exposure to Mumps virus or previous vaccination. Performed at: [address] [id number] PhD Priya Govea Performed By: #### 1 [id number], [id number], [id number] ####[address] [address] Rubella virus IgG Qn (S) 14.40 [IU]/mL Invalid Interpretation Code Immune >0.99 [facility] Comment on above: Result Comment: Non- immune <0.90 Equivocal 0.90 - 0.99 Immune >0.99 Performed By: #### 1 [id number], [id number], [id number], [id number] ####[address] [place] [id number] Quantiferon-TB Plus (Client Incubated)on 07-01-2022 Gamma interferon background IA Qn (Bld) 0.05 International_Unit/mL Invalid Interpretation Code [facility] Comment on above: Performed By: #### 1 [id number], [id number], [id number], [id number] ####[address] [place] [address] M. tuberculosis stim IFN-g by CD4+ CD8+ T-cells Qn (Bld) 0.04 International_Unit/mL Invalid Interpretation Code [facility] Comment on above: Performed By: #### 1 [id number], [id number], [id number], [id number] ####[address] [place] [address] M. tuberculosis stim IFN-g by CD4+ T-cells Qn (Bld) 0.04 International_Unit/mL Invalid Interpretation Code [facility] Comment on above: Performed By: #### 1 [id number], [id number], [id number], [id number] ####[address] [place] [address] M. tuberculosis stim IFN-g Ql (Bld) [Interp] Negative Invalid Interpretation Code Negative [facility] Comment on above: Result Comment: No r esponse to M tuberculosis antigens detected. Infection with M tuberculosis is unlikely, but high risk individuals should be considered for additional testing (ATS/IDSA/CDC Clinical Practice Guidelines, 2017). The reference range is an Antigen minus Nil result of <0.35 IU/mL. The specimen received for QuantiFERON testing was incubated by the ordering institution. Specific procedures outlined in our Directory of Services and in the package insert for the QuantiFERON Gold (In Tube) test must be followed to enable for proper stimulation of cells for the production of interferon gamma. Chemiluminescence immunoassay methodology Performed at: [facility] [id number] PhD Priya Govea Performed By: #### 1 [id number], [id number], [id number], [id number] ####[facility] [address] [place] [address] Mitogen stimulated gamma interferon Qn (Bld) >10.00 Invalid Interpretation Code [facility] Comment on above: Performed By: #### 1 [id number], [id number], [id number], [id number] ####[facility] [address] [place] [address] Service comment (Unsp spec) [Interp] Comment Invalid Interpretation Code [facility] Comment on above: Result Comment: [place] tiFERON-TB Gold Plus is a qualitative indirect test for M tuberculosis infection (including disease) and is intended for use in conjunction with risk assessment, radiography, and other medical and diagnostic evaluations. The QuantiFERON-TB Gold Plus result is determined by subtracting the Nil value from either TB antigen (Ag) value. The Mitogen tube serves as a control for the test. Performed By: #### 1 [id number], [id number], [id number], [id number] ####[facility] [address] [place] [address] Varic IgGon 07-01-2022 VZV IgG IA Qn (S) 1984 Invalid Interpretation Code Immune >165 [facility] Comment on above: Result Comment: Nega tive <135 Equivocal 135 - 165 Positive >165 A positive result generally indicates exposure to the pathogen or administration of specific immunoglobulins, but it is not indication of active infection or stage of disease. Performed at: [facility] [id number] PhD Priya Govea Performed By: #### 1 [id number], [id number], [id number], [id number] ####[facility] [address] [place] [address] Consent for Treatmenton Consent for Treatment [id number] .00CD:127 Normal [facility] Physician Orderon 06-29-2022 Physician Order [id number] 1.00CD:127 Normal [facility] CBC AUTO DIFFon 06-14-2022 BASO # 0.0 103/ul Normal 0.0-0.1 [facility] Comment on above: Performed By: #### C BC #### [facility] [address] [place] [address] Dr. Zach Mccormick Basophils/100 WBC (Bld) 0.5 % Normal 0.2-2.0 [facility] Comment on above: Performed By: #### C BC #### [facility] [address] [place] [address] Dr. Zach Mccormick EO # 0.2 103/ul Normal 0.0-0.7 [facility] Comment on above: Performed By: #### C BC #### [facility] [address] [place] [address] Dr. Zach Mccormick Eosinophils/100 WBC (Bld) 3.7 % Normal 0.9-7.0 [facility] Comment on above: Performed By: #### C BC #### [facility] [address] [place] [address] Dr. Zach Mccormick Erythrocyte distribution width (RBC) [Ratio] 12.4 % Normal 11.0-15.0 [facility] Comment on above: Performed By: #### C BC #### [facility] [address] [place] [address] Dr. Zach Mccormick Hematocrit (Bld) [Volume fraction] 39.6 % Normal 36.0-48.0 [facility] Comment on above: Performed By: #### C BC #### [facility] [address] [place] [address] Dr. Zach Mccormick Hemoglobin (Bld) [Mass/Vol] 13.0 g/dL Normal 12.0-16.0 [facility] Comment on above: Performed By: #### C BC #### [facility] [address] [place] [address] Dr. Zach Mccormick IG # 0.02 10e3/ul Normal 0.00-0.03 [facility] Comment on above: Performed By: #### C BC #### [facility] [address] [place] [address] Dr. Zach Mccormick IG % 0.3 % Normal 0.0-0.[address] [facility] Comment on above: Performed By: #### C BC #### [facility] [address] [place] [address] Dr. Zach Mccormick LYMPH # 2.4 103/ul Normal 1.2-3.8 [facility] Comment on above: Performed By: #### C BC #### [facility] [address] [place] [address] Dr. Zach Mccormick Lymphocytes/100 WBC (Bld) 41.3 % Normal 20.5-60.0 [facility] Comment on above: Performed By: #### C BC #### [facility] [address] [place] [address] Dr. Zach Mccormick MANUAL DIFF REQ NO Normal [facility] Comment on above: Performed By: #### C BC #### [facility] [address] [place] [address] Dr. Zach Mccormick MCH (RBC) [Entitic mass] 28.3 pg Normal 26.7-34.0 [facility] Comment on above: Performed By: #### C BC #### [facility] [address] [place] [address] Dr. Zach Mccormick MCHC (RBC) [Mass/Vol] 32.8 g/dL Normal 29.9-35.2 [facility] Comment on above: Performed By: #### C BC #### [facility] [address] [place] [address] Dr. Zach Mccormick MCV (RBC) [Entitic vol] 86.3 fL Normal 81.0-99.0 [facility] Comment on above: Performed By: #### C BC #### [facility] [address] [place] [address] Dr. Zach Mccormick MONO # 0.4 103/ul Normal 0.3-0.8 [facility] Comment on above: Performed By: #### C BC #### [facility] [address] [place] [address] Dr. Zach Mccormick Monocytes/100 WBC (Bld) 6.1 % Normal 1.7-12.0 [facility] Comment on above: Performed By: #### C BC #### [facility] [address] [place] [address] Dr. Zach Mccormick NEUT # 2.8 103/ul Normal 1.4-6.5 [facility] Comment on above: Performed By: #### C BC #### [facility] [address] [place] [address] Dr. Zach Mccormick Neutrophils/100 WBC (Bld) 48.1 % Normal 43.0-75.0 [facility] Comment on above: Performed By: #### C BC #### [facility] [address] [address] [address] Zach Mccormick Platelet mean volume (Bld) [Entitic vol] 10.4 fL Normal 9.5-13.5 [facility] Comment on above: Performed By: #### C BC #### [facility] [address] [address] [address] Zach Mccormick PLT 242 103/ul Normal 150-450 [facility] Comment on above: Performed By: #### C BC #### [facility] [address] [place] [address] Dr. Zach Mccormick RBC 4.59 106/ul Normal 4.20-5.40 [facility] Comment on above: Performed By: #### C BC #### [facility] [address] [place] [address] Dr. Zach Mccormick WBC 5.9 103/ul Normal 4.0-11.0 [facility] Comment on above: Performed By: #### C BC #### [facility] [address] [place] [address] Dr. Zach Mccormick LIPID PROFILEon 06-14-2022 CHOL-HDL RATIO NORM SEE BELOW Normal [facility] Comment on above: Result Comment: 3.3 - 4.4 LOW RISK 4.4 - 7.1 AVERAGE RISK 7.1 - 11.0 MODERATE RISK >11.0 HIGH RISK Performed By: #### T SH, CMP, LIPID #### [facility] [address] [place] [address] Dr. Zach Mccormick Cholesterol [Mass/Vol] 207 mg/dL Critically high <=200 [facility] Comment on above: Performed By: #### T SH, CMP, LIPID #### [facility] [address] [place] [address] Dr. Zach Mccormick Cholesterol in HDL [Mass/Vol] 81 mg/dL Critically high 40-60 [facility] Comment on above: Performed By: #### T SH, CMP, LIPID #### [facility] [address] [place] [address] Dr. aZch Mccormick Cholesterol in LDL [Mass/Vol] 99.6 mg/dL Normal [facility] Comment on above: Performed By: #### T SH CMP, LIPID #### [facility] [address] [address] [address] Zach Mccormick Cholesterol.total/Lauren sterol in HDL [Mass ratio] 2.6 {ratio} Normal [facility] Comment on above: Performed By: #### T SH, CMP, LIPID #### [facility] [address] [place] [address] Dr. Zach Mccormick HDL NORMAL > or = 60 mg/dl - LO W CARDIOVASCULAR RISK <40 mg/dl - HIGH CARDIOVASCULAR RISK Normal [facility] Comment on above: Performed By: #### T ESAU CMP, LIPID #### [facility] [address] [place] [address] Dr. Zach Mccormick LDL CALC NORMAL SEE BELOW Normal [facility] Comment on above: Result Comment: <100 mg/dl OPTIMAL 100 - 129 mg/dl NEAR OR ABOVE OPTIMAL 130 - 159 mg/dl BORDERLINE HIGH 160 - 189 mg/dl HIGH >190 mg/dl VERY HIGH Performed By: #### T SH CMP, LIPID #### [facility] [address] [place] [address] Dr. Zach Mccormick Triglyceride [Mass/Vol] 132 mg/dL Normal <=150 [facility] Comment on above: Performed By: #### T ESAU CMP, LIPID #### [facility] [address] [place] [address] Dr. Zach Mccormick VLDL CALC 26.4 mg/dL Normal [facility] Comment on above: Performed By: #### T SH, CMP, LIPID #### [facility] [address] [address] [address] Zach Mccormick PROF 14(COMP METB)on 023 Albumin [Mass/Vol] 3.8 g/dL Normal 3.4-5.0 [facility] Comment on above: Performed By: #### T SH, CMP, LIPID #### [facility] [address] [place] [address] Dr. Zach Mccormick Albumin/Globulin [Mass ratio] 1.1 {ratio} Normal [facility] Comment on above: Performed By: #### T SH, CMP, LIPID #### [facility] [address] [address] [address] Zach Mccormick ALP [Catalytic activity/Vol] 51 U/L Normal 46-116 [facility] Comment on above: Performed By: #### T SH, CMP, LIPID #### [facility] [address] [address] [address] Zach Mccormick ALT [Catalytic activity/Vol] 15 U/L Normal 14-59 [facility] Comment on above: Performed By: #### T ESAU, CMP, LIPID #### [facility] [address] [place] [address] Dr. Zach Mccormick Anion gap [Moles/Vol] 9.7 mmol/L Normal [facility] Comment on above: Performed By: #### T SH, CMP, LIPID #### [facility] [address] [address] [address] Zach Mccormick AST [Catalytic activity/Vol] 14 U/L Critically low 15-37 [facility] Comment on above: Performed By: #### T ESAU CMP, LIPID #### [facility] [facility] [address] [place] [address] Dr. Zach Mccormick Bilirubin [Mass/Vol] 0.5 mg/dL Normal 0.2-1.0 [facility] Comment on above: Performed By: #### T SH, CMP, LIPID #### [facility] [address] [place] [address] Dr. Zach Mccormick Calcium [Mass/Vol] 9.3 mg/dL Normal 8.5-10.1 [facility] Comment on above: Performed By: #### T SH, CMP, LIPID #### [facility] [address] [place] [address] Dr. Zach Mccormick Chloride [Moles/Vol] 103 mmol/L Normal 98-107 [facility] Comment on above: Performed By: #### T SH, CMP, LIPID #### [facility] [address] [place] [address] Dr. Zach Mccormick CO2 [Moles/Vol] 31.2 mmol/L Normal 21.0-32.0 [facility] Comment on above: Performed By: #### T SH, CMP, LIPID #### [facility] [address] [address] [address] Zach Mccormick Creatinine [Mass/Vol] 0.69 mg/dL Normal 0.55-1.[address] [facility] Comment on above: Performed By: #### T SH, CMP, LIPID #### [facility] [address] [address] [address] Zach Mccormick EGFR-AF HUNGARIAN >60 Normal >=60 [facility] Comment on above: Performed By: #### T SH, CMP, LIPID #### [facility] [address] [address] [address] Zach Mccormick EGFR-NON AF HUNGARIAN >60 Normal >=60 [facility] Comment on above: Performed By: #### T SH, CMP, LIPID #### [facility] [address] [address] [address] Zach Mccormick Globulin (S) [Mass/Vol] 3.4 g/dL Normal [facility] Comment on above: Performed By: #### T SH, CMP, LIPID #### [facility] [address] [address] [address] Zach Mccormick Glucose [Mass/Vol] 88 mg/dL Normal 74-106 [facility] Comment on above: Performed By: #### T SH, CMP, LIPID #### [facility] [address] [address] [address] Zach Mccormick Potassium [Moles/Vol] 3.9 mmol/L Normal 3.5-5.[address] [facility] Comment on above: Performed By: #### T SH, CMP, LIPID #### [facility] [address] [address] [address] Zach Mccormick Protein [Mass/Vol] 7.2 g/dL Normal 6.4-8.2 [facility] Comment on above: Performed By: #### T SH, CMP, LIPID #### [facility] [address] [address] [address] Zach Mccormick Sodium [Moles/Vol] 140 mmol/L Normal 136-145 [facility] Comment on above: Performed By: #### T ESAU, CMP, LIPID #### [facility] [address] [address] [address] Zach Mccormick Urea nitrogen [Mass/Vol] 10.0 mg/dL Normal 7.0-18.0 [facility] Comment on above: Performed By: #### T ESAU, CMP, LIPID #### [facility] [address] [address] [address] Zach Mccormick Urea nitrogen/Creatinine [Mass ratio] 14.5 mg/mg Normal [facility] Comment on above: Performed By: #### T ESAU, CMP, LIPID #### [facility] [address] [address] [address] Zach Mccormick TSHon 06-14-2022 TSH 1.396 uIU/mL Normal 0.358-3.740 [facility] Comment on above: Performed By: #### T ESAU, CMP, LIPID #### [facility] [address] [address] [address] Zach Mccormick XR CSPINE 2_3 VIEWSon 2022 XR CSPINE 2_3 VIEWS EXAM: XR CSPINE 2_3 VIEWS HISTORY: Cervical radiculopathy COMPARISON: None. TECHNIQUE: Lateral, flexion, extension radiographs of the cervical spine. FINDINGS/IMPRESSION: Limited exam given only lateral views. Anatomy: There are 7 ppp-wtb-uhjcyis cervical segments. Bones: No acute fracture or dislocation. No suspicious lytic or sclerotic lesion. Normal lateral atlantoaxial alignment. Mild C4-C7 facet degeneration. Mild C5-C6 disc height loss. Mild C4-C6 endplate osteophytosis. No evidence for instability. Other: Unremarkable. Electronically authenticated by: ISHA LERMA Date: 2022-06-14 09:08 Normal [facility] Coding Summary.on 12-31-2021 Coding Summary. [id number] G h0bWw+PGhlYWQ+UR2GQMQ rZ03awUXahH7OB9gKBQ6A VLDSCBFWMP4ANY9fvGC3O UujZ9LnkcPb AagtbEXwQX09IDf8BUQ9h NdaURmhxG3kjUTgS4e7Sy WePN22rR00NZdtKGCcYeC 3LjZpbjsgbWFy T1ivXcQxdOTgKxd+PHRhY mxlIHdpZHRoPScxMDAlJy MyhKulRG5kQs1cCQSxWFA vbGxhcHNlOiBj m3dxRIXbOAbpWO0ycNofC 1OlaUM7QUAji8h0Mz26cR I+CXFfFTW8uIibWPzyg20 3WgUpv4ugLPA0 jLTbWFkvRUZ7M74zo5N2Q EQyKDGjGEG7hGA0zE0kvY hleentS4PigIPhWnK1ZQW 5yVZjlJ6ymGbi whljiU6bCgt+O75MWH8FQ IZJUZ5ZYpf4H4BwDrowuI I+OC54THGpCT84sYUxwYW qe9ttxZq3OjXx TDQeCRQ7fGwcCGvcg4UhI AMxK64ngTSpx0G7ULAfiA nozVCeAsUioFJ4xW6uXVy beoass6kavwzo Fpvfi4okyq01dQ24W46lL OpaYOFiSBP0CGDaGMThkJ hbcs1opX7yPg8+FQadb5e wv3ojyCj7QxJd ZZUtefBudMueBNE6m6OxW u98S2TmjArdy5HmDyp6qx 50yIInj4C5gBI6FXrgVYB waU7lOSloTxO0 CYHhIqLaxC71xOOkCFikA m6bpSdrcXkgYA8vMSDozu vvBUGztB5dUPAvaZRbaXu rVL8oGWPffadr n032SePcTFD5NPAeiVGjK 8RyuS7fGtXvIBTvPQMcL8 HuyAPuKVghO352EEbcVyB 0CNMzayTqN0Mt NNPjfTyaFcM8g5I0Gv9Sv 4EcbxlqFBF1RMdqNIU2Jr W3QtTdDnY1A8EjDcs8LDY bpYdoNH8wT5Nk GOGwuxvzkcalbCT9TNEsQ BHkiS53lNYhSMerCx5hd8 C0h163PDVwZGKciW42Zm6 udDogMTBwdCBU xJ7jrogkx7vugdyeWlFoZ QRiZFp5DKx5QVIzxWwzHy TtXKP7JkS7ZYJ9aRDggT0 dcMcskitwbI3c Oyc+I83rqC0hLHD2MEW2i rnmGWNmnqMrJT77MY80I9 RyPjwvdGFibGU+PGRpdiB ulUphYK1dBpTv q1yzs2VjOTdjX8TbZVSqY CqhYiy4SFUcRJO9kEK9yI 7nREIdEJolr2G5lTG2H2D qanSszx7ek5ar CDTqQYkvL50yuSInd3N0L IIreMW9BTBhiPcdVyZonG 93Oyc+EFJhvMynf6KwEic uz7ggr0tezNf8 PtPoQNUeyzDptVttDLT2e 8TbBg41D94iQTkfKOLaRR YfNAVcUVMmbMyvuv8sqQ2 wIi8+PGNvbCB3 cDR7gR4wIOUfMmY0UIdtQ 506AdIeeVAkNbdfu9vnw0 zajHu3ZtHrAEAdueFivAp iXEY2b3LjRx07 Z74aPIiyCBOyFVBeUMDzV XKhhKnbun4xdB4eKs8+PC 0pj0twgh28vD22mNG+PHR uFHY3lPvdAXbz JULrkA0oNEurLjW4PKMiF dNgfU76cOOsUFmcUk7fsT vfkJttYU0kEKMkhuyuz94 6AyBvp6tcORFx xJUtHSfcJWX1B58qw2B0A YEuMAEpEIJ8vZW8qI0oiX lnbjogbGVmdDsgdmVydGl dXFewNHugA893 IHRvcDsnPlBhdGllbnQgT aQuKFc9B5MgQqy4ADAtxU qkMH8grHDrYSeuUa1niDi hqLjeHH7wXNUf dubib618ZmNka9rnFFGav ZZxLVcpHUL8V80mg4V2FN NsKCWsBIV8nAV8jK4wlKg nbjogbGVmdDsg moFfaPhfABxtNBlrF951T HRvcDsnPkJpcnRoIERhdG V6RH53QP75xDOhv2B2qJO 5Q5ShRBKcgceq xkwzeHX5FHSmQLSmsH95C z4qzBjqOt7tTLJzJVJ4AP BgmDMxK8OajN3aOkYwRYQ qLSBhF0LffLXx FJqqP767HQxbCuP5LPVir lAhH0IgDVFtqXrzGjL0a9 M3Of2WA7H0VA50XX19zRJ zz2Q9xZP8R5Ga GMVtiqvgkpuwoLM9TBFdY XXbrV71Bo1ryEwsCd2vWH BuLMV0HMQwiBZiD7JfnH0 yOiAjMDAwMDAw M5PhwRIzOFdoC241CGoeU wN8VFNldmGuF9TfQJDirI emOqH6c7G3Te1OGYw6KU7 2YC58rZEdf8A2 dXH6H4MmNABqscepexpgb GA3MZAmXWZpiE02Ja8feI dcZb1hPJYbDPC5FJFmqXN gA4BdpD3jSlKj LQIgHBLtT9BemJKgVQmsX 025XYvtXjC0HNDzjjVyP1 RcAEAlsTqpZyL4z3L6Wj3 MWAVsVK56YYI0 jDL5MI98JF20Q9YwOnlqw GFibGU+PHRhYmxlIHdpZH RoPScxMDAlJyBzdHlsZT0 lQa9mBHTiIEEx zPugtRYhPyHlz0urAQJnQ HbiED3fkRsmF2VkxXM1FC Qhy8t1Ep89V32yK3FwmJE +ZWDwwCL8sLS5 lF0bNgJlZhI0WLlqL215R sViaIEzQspys6qir6yyfL r9RaL5LFAdoeOmwDqqSYF 5a4ScUj40L07m IHdpZHRoPSIxNSUiIHZhb Jplju3dbO5sNb2+PGNvbC Z4wHA2iN7dTgWsEsQ2YXh bB713CpRduEHx Dhhkn0ljp0kjvIm4XxDeU UQisnTebPnfVIN8p1MzRu 43B2RmsKhlz5ZfHgw2lh0 1oXEai0V2kRI8 R4MgRHBntidqrXCakRwrZ R5dJHSocsuzRIHsdQ8eLL DyQ1d2CaPdVwG1HXpkX1O jnxO9KIHckZYw AOuoJMZ9O36lo8A2HJOqN TIuYDR2rZH3hT3tjThwrl ogbGVmdDsgdmVydGljYWw xQFdhJ940YAMa nTysBQGvmP4jVHFbgIFfe AioEP0vNEPvmpzsOdPIRK mLWjxUSaagLR1PUTsiRPn vdGQ+PHRkIHN0 hJbwQStwXRNepO8dCABdQ 2j3JfQyBpD1MCbtE9NuYH VvsdeaSp02gK6mSwQfWxK 0YHdzR0VxibS5 HZDrzEVkYHlkPNJ4D75vs 0L1FUWwEGPnFGK8rRZ8cR 1hbGlnbjogbGVmdDsgdmV ydGljYWwtYWxp I136HQAnpUdxLlLqDiBkF oS3OmK7V0VdKhe2QOMwaE trDE8klQQxQYlvOb4gtEh qkEpbWL7jWYLn vlkhNWZbqQ2sTGTqoSEkw RmjIP5gAZCcixxdf790If PjDNI3MXVgvOOwZ5DgbX3 yOiAjMDAwMDAw X5BqtDJzBZsfQ429SNvoM cV8BUYmqvDgI2DeYXIdrZ jrGrO2n5S5Ez93BiNRCVH yczwvdGQ+PHRk OYO1yBjpTZurZJHfvZ7aE AVzE1x1QzKjMqJ0IDyxB4 LaMELemavdRn98sQ2vFkW xQjV7ECwaQ9Dy ooW2ATRmvERuNJerTXS4M 94nh3D5JBBrZVIwPSD0eP P1lK4kzRvjggykeGLubBe gdmVydGljYWwt LPxrY527YZDxcOnmXnOoi WFsZTwvdGQ+CHTqHBC4zS arOCykDLRjsJ9hCAWvU8f 4GsPcGbZ2GMuu Y8VzTPHdtdkjBs97lQ1aJ tMpYkM7HDiaA0MdioB6UD FvkLRvPMglOAK7Y60wd3W 5IPBmIGMvQZV2 xDE4cC2ouSsgzsjwvFRqd DsgdmVydGljYWwtYWxpZ2 94YWFldNzsTgXjPIBeTT1 jeTwvdGQ+PC90 ba84T3HbIgzlVww9BIHyY HM1jOF1yM0yMBFhSGeqq4 P4uAP1R0BkbfRgxf7co9c rJQMqTKpqJ67f aCVac4E3RVOweVH5GPAfb HflToEnhA04Eld+PGNvbG zmi6YpPrnzb3rid9ypwYu 9IjMwJSIgdmFs aAdeOQT6h2UoOi57N98nD HdpZHRoPSIzMCUiIHZhbG tyse6zmE5rYj5+PGNvbCB 6kTK7dK4rMtEg XaK3WIfoS484WaAvcLBsC dpaq9mmc7tjyAm0CxSmIX QfhzDrmQpiTNS4z2TxPn4 9F4IvnHsdf4Pq Olq8op44kITlw2Q0qSW6J 3BhZGRpbmctbGVmdDogMC 1uLKJggiycTSCtzJ4uHNR tT3d2XlEwUxL3 OLjsH1DflcS3BVWwfJZwG XZqoZLOnN7fizrnr5crvj dyPkAoILYxZPl6QWh2TFC saWduOiBsZWZ0 UsM9QNM9yHVvmV8duPwxm nwsvT2iQfl+RXn8o3pgqJ OnXP5usPQ2BE01VQ55rWH wb2F6wCQ4Z1Dh DKIpliepohmpkFS0BPUrK XLuvB94En2liKbyPb2qHI WtOFP3YYXgrKAgR5RqaD1 yOiAjMDAwMDAw Z9LanBZmZHsxR559FNqiB xB6IEXieqIgI1ElZAZrcH mhUzO9b4X7Ch4MHN28HZ1 7KL78rWMik8K6 tFB8F9QyLDWqefrayxjhd MG0JFYfWYHdwZ33Pf6eaL joKn0fDIHsHHO6ULZgpFL yK6ZuoM2uDaLe YKOnXUCsY0UzgVAmSBgyI 858DVlnFzI0VMHntkBcX4 WmDQGhtNmnLyF4k1R6Hv3 RLz64GE22YC81 uJCht6X4cYK2C8HaYVOaw dieagfkgAE8UCSkLQQqzI 21Zj5qxKnmBw2zXTRzMEG 9JTAobNJzP9Qf sG5eJdIyJLRtHPOxA3Xcb FXwJNxjH962KJcuAuU2TT HkikOeL5HnJFKzrHxbYoR 5l7W0Bo3BRUra evx5U9KqIfvoySW+PC90Y OGxXW42qYMbdJKvx0ftiG y0QrLdLGFdPNS1tYkzGFr ak2YeTAIiG44t bGFw (more content not included)... Normal [facility] Discharge Instructionson Discharge Instructions [id number]:127 Normal [facility] Grp A Strp PCRon 12-30-2021 Grp A Strp Intrl Ctrl Pass Normal [facility] Comment on above: Order Comment: Order Added on by Discern Rule. Performed By: #### 2 [id number] ####[facility] [address] [place] [address] S. pyogenes rRNA Probe Ql (Unsp spec) Negative Normal [facility] Comment on above: Order Comment: Order Added on by Discern Rule. Result Comment: Test ing performed using DNA amplification. Performed By: #### 2 [id number], [id number], [id number] ####[facility] [address] [place] [address] Rapid COVID Antigen ([facility])on 12-30-2021 Rapid COV Int NEG Ctl Pass Normal [facility] Comment on above: Performed By: #### 2 [id number] ####[facility] [address] [place] [address] Rapid COV Int POS Ctl Pass Normal [facility] Comment on above: Performed By: #### 2 [id number] ####[facility] [address] [place] [address] SARS-CoV+SARS-CoV-2 (COVID-19) Ag IA.rapid Ql (Resp) Not detected Normal Not Detected [facility] Comment on above: Result Comment: The [employer]itor? System for Rapid Detection of SARS-CoV-2 is a chromatographic digital immunoassay intended for the direct and qualitative detection of SARS-CoV-2 nucleocapsid antigens in nasal swabs from individuals who are suspected of COVID-19 by their healthcare provider within the first five days of the onset of symptoms. Negative results should be treated as presumptive, do not rule out SARS-CoV-2 infection and should not be used as the sole basis for treatment or patient management decisions, including infection control decisions. Negative results should be considered in the context of a patient?s recent exposures, history and the presence of clinical signs and symptoms consistent with COVID-19, and confirmed with a molecular assay, if necessary, for patient management. For in vitro diagnostic use. In the [place], only for use under an Emergency Use Authorization. In the [place], this test has not been FDA cleared or approved; this test has been authorized by FDA under an EUA for use by authorized laboratories; use by laboratories certified under the CLIA, 42 U.S.C. ?263a, that meet requirements to perform moderate, high, or waived complexity tests and at the Point of Care (POC), i.e., in patient care settings operating under a CLIA Certificate of Waiver, Certificate of Compliance, or Certificate of Accreditation. This test has been authorized only for the detection of proteins from SARS-CoV-2, not for any other viruses or pathogens; and, in the [place], this test is only authorized for the duration of the declaration that circumstances exist justifying the authorization of emergency use of in vitro diagnostics for detection and/or diagnosis of the virus that causes COVID-19 under Section 564(b)(1) of the Act, 21 U.S.C. ? 360bbb-3(b)(1), unless the authorization is terminated or revoked sooner. Performed By: #### 2 [id number], [id number] ####[facility] [address] [place] [address] Rapid Strep w/rfxon 12-31-19 22 S. pyogenes Ag IA.rapid Ql (Throat) Negative Normal Negative [facility] Comment on above: Performed By: #### 2 [id number], [id number] ####[facility] [address] [place] [address] Consent for Treatmenton Consent for Treatment [id number] .[id number]:127 Normal [facility] ED Clinical Summaryon 2021 ED Clinical Summary [address] [address] ED Clinical Summary Person Information Name: WYATT HARRINGTON [place] Age: 46 Years : 1975 Sex: Female Language: Sao Tomean PCP: ALISHA SELLERS MD Marital Status: Phone: [phone] Visit Id: Visit Reason: Cough; Ear pain; Body aches; TIGHTNESS IN CHEST, BODY ACHES,PAIN IN EARS AND THROAT Speciality: Acuity: 4 Enc Type: Emergency Med Service: Emergency Arrival: 12/29/2021 20:04:48 Discharge: 12/29/2021 21:48:00 LOS: 000 01:44 Checkin: 12/29/2021 20:04:48 Checkout: 12/29/2021 21:48:00 Dispo Type: Home (Routine DC) EVENTS: Event Name Event Status Request Date/Time Start Date/Time Complete Date/Time Arrive Complete 12/29/2021 20:04:48 12/29/2021 20:04:48 12/29/2021 20:04:48 Document Home Meds Request 12/29/2021 20:04:48 Triage Complete 12/29/2021 20:04:48 12/29/2021 20:14:40 12/29/2021 20:14:40 Patient Care Request 12/29/2021 20:14:41 Patient Isolation Request 12/29/2021 20:14:41 Bed Assign Complete 12/29/2021 20:43:24 12/29/2021 20:43:24 12/29/2021 20:43:24 Dr Exam Complete 12/29/2021 20:43:24 12/29/2021 21:10:44 12/29/2021 21:10:44 RN Exam Complete 12/29/2021 20:43:24 12/29/2021 21:38:32 12/29/2021 21:38:32 Registration Complete 12/29/2021 21:10:44 12/29/2021 21:21:34 12/29/2021 21:21:34 Reg Complete Request 12/29/2021 21:21:34 Reg Bed Request Complete 12/29/2021 21:21:34 12/29/2021 21:21:34 12/29/2021 21:21:34 Pending Labs Inlab 12/29/2021 21:29:33 Lab Inlab 12/29/2021 21:29:33 Discharge Complete 12/29/2021 21:35:02 12/29/2021 21:56:01 12/29/2021 21:56:01 Transfer Complete 12/29/2021 21:56:01 12/29/2021 21:56:01 12/29/2021 21:56:01 ADDRESS: [address] [place] [phone] PHYS DOC NOTES: MEDICAL INFORMATION: Prescriptions Given: New Medications [id number], [address] [place], [place] [id number], [phone] azithromycin (azithromycin 250 mg Tab) 250 Milligram By Mouth As Directed. Refills: 0. guaifenesin-pseudoeph edrine (Mucinex D Max Strength oral tablet, extended release) 1 Tablets By Mouth every 12 hours for 7 Days. Refills: 0. Medications to Continue with No Changes Other Medications acetaminophen-hydroco done (Bristol 325 mg-5 mg oral tablet) 1 Tablets By Mouth every 4 hours as needed for pain. Refills: 0. PATIENT EDUCATION INFORMATION: Instructions: Sinusitis, Adult, Dhng-vh-Xhpk; Pharyngitis, Xulr-gx-Euzs Follow up: With: Address: When: Call for test results With: Address: When: ALISHA SELLERS [address] [place] [id number] Business (1) In 3 days 01/01/2022, only if needed DIAGNOSIS: 1:Acute sinusitis; 2:Acute pharyngitis Normal [facility] ED Note-Physicianon 12-30-19 ED Note-Physician Basic Information Time Seen: Bernabe Eller MD 12/29/2021 21:10 Chief Complaint pt arrives for c/o body aches, ear pressure, and coughing sputum, and a headache. states she drinking plenty of fluids, and has had two negative at home covid tests. states daughter dx wiht covid ten days ago History of Present Illness 46-year-old female presents with a 4-day history of fever body aches congestion and cough. Patient states the symptoms started with a high fever 102 degrees. Significant nasal drainage and sinus pressure. She does complain of a sore throat and bilateral ear pain. Cough is productive of clear sputum in the morning. She does not complain of being short of breath or chest pain. She does have a COVID exposure she has a child that was positive within the past 10 days. She has had 2 negative home test. Patient has not been immunized against COVID. Patient is not a smoker. She has no chronic medical conditions. Review of Systems A 10 point review of systems is negative except as noted above. Medical and Surgical History: Reviewed and noted Social history: Lives at home Tobacco: Denies Physical Exam Vitals & Measurements T: 37.3 ?C(Oral) HR: 105(Peripheral) RR: 16 BP: 109/77 SpO2: 99% HT: 155.0 cm HT: 155 cm WT: 49.0 kg WT: 49 kg BMI: 20.4 This is a well-developed 46-year-old female she is alert and oriented x3 skin is warm and dry color is pink on room air. Both tympanic membranes are visualized they appear to be dull but there is no redness in either eardrum. There is tenderness to percussion over the frontal and maxillary sinus region. [place] is moist there is no drooling there is some mild diffuse redness in the posterior pharynx. There is no cervical lymphadenopathy. The lungs are clear to auscultation there is good air entry there are no adventitious sounds. The heart is regular it is not accelerated. Abdomen is soft and nontender. Medical Decision Making The patient will have swabs done here and then discharged home she will call for results. We did explain sinusitis and the use of antibiotics. If her swabs are negative and her symptoms continue despite the Mucinex D then a prescription for Zithromax has been provided for the patient. This will stay for a second ER visit and the cost that it encouraged. Assessment/Plan 1. Acute sinusitis (J01.90: Acute sinusitis, unspecified) 2. Acute pharyngitis (J02.9: Acute pharyngitis, unspecified) Orders: azithromycin, 250 mg, Oral, As Directed, # 6 tab(s), Refills(s) 0, Pharmacy: [id number], 155, cm, 12/29/21 20:14:00 EDT, Height/Length Dosing, 49, kg, 12/29/21 20:14:00 EDT, Weight Dosing guaifenesin-pseudoeph edrine, 1 tab(s), Oral, q12hr for 7 day(s), 14 tab(s), Refill(s) 0, [id number], 155, cm, 12/29/21 20:14:00 EDT, Height/Length Dosing, 49, kg, 12/29/21 20:14:00 EDT, Weight Dosing Rapid COVID Antigen ([facility]) Rapid Strep w/rfx Disposition Plan Patient Discharge Condition Stable Discharge Disposition Home Discharge Prescription List Prescriptions azithromycin 250 mg Tab, 250 mg, Oral, As Directed Mucinex D Max Strength oral tablet, extended release, 1 tab(s), Oral, q12hr Follow-up With When Contact Information ALISHA SELLERS In 3 days 01/01/2022 EDT, only if needed [address] [place] [address] [facility] (1) Additional Instructions: Call for test results Additional Instructions: Patient Education Sinusitis, Adult, Slkv-na-Xhen Pharyngitis, Llbj-ns-Qnzk Problem List/Past Medical History Ongoing ADD (attention deficit disorder) Anxiety Historical No qualifying data Procedure/Surgical History Breast (07/27/2018), Hysterectomy (02/26/2015). Medications Inpatient No active inpatient medications Home amphetamine-dextroamp hetamine 15 mg oral capsule, extended release, Not taking azithromycin 250 mg Tab, 250 mg, Oral, As Directed Bromfed DM oral syrup, 10 mL, Oral, QID, PRN, Not taking buPROPion 75 mg Tab clonazepam 0.5 mg oral tablet, Not taking Mucinex D Max Strength oral tablet, extended release, 1 tab(s), Oral, q12hr Bristol 325 mg-5 mg oral tablet, 1 tab(s), Oral, q4hr, PRN, Not taking Premarin 0.625 mg oral tablet, Not taking Premarin 0.625 mg Tab Ventolin HFA 90 mcg/inh Aerosol, 2 puff(s), Inhalation, Once, PRN, Not taking Allergies No Known Allergies Social History Alcohol Substance Abuse Tobacco Former smoker, quit more than 30 days ago Tobacco Use:. Never Smokeless Tobacco Use:. Cigarettes, 11/07/2021 Former smoker, quit more than 30 days ago Tobacco Use:. 0.5 per day. 2 year(s). Started age 41.0 Years. Stopped age 43 Years. Ready to change: No. Household tobacco concerns: No., 03/15/2019 Lab Results No qualifying data available. Diagnostic Results No qualifying data available. Normal [facility] Comment on above: Result Comment: Elec tronically Signed By: Rafita OSBORNE, Bernabe\.br\Date and Time Signed: 12/29/21 21:37 EDT ED Patient Education Noteon 12-29-2021 ED Patient Education Note Infectious Disease Sinusitis, Adult Sinusitis is soreness and swelling (inflammation) of your sinuses. Sinuses are hollow spaces in the bones around your face. They are located: ? Around your eyes. ? In the middle of your forehead. ? Behind your nose. ? In your cheekbones. Your sinuses and nasal passages are lined with a fluid called mucus. Mucus drains out of your sinuses. Swelling can trap mucus in your sinuses. This lets germs (bacteria, virus, or fungus) grow, which leads to infection. Most of the time, this condition is caused by a virus. What are the causes? This condition is caused by: ? Allergies. ? Asthma. ? Germs. ? Things that block your nose or sinuses. ? Growths in the nose (nasal polyps). ? Chemicals or irritants in the air. ? Fungus (rare). What increases the risk? You are more likely to develop this condition if: ? You have a weak body defense system (immune system). ? You do a lot of swimming or diving. ? You use nasal sprays too much. ? You smoke. What are the signs or symptoms? The main symptoms of this condition are pain and a feeling of pressure around the sinuses. Other symptoms include: ? Stuffy nose (congestion). ? Runny nose (drainage). ? Swelling and warmth in the sinuses. ? Headache. ? Toothache. ? A cough that may get worse at night. ? Mucus that collects in the throat or the back of the nose (postnasal drip). ? Being unable to smell and taste. ? Being very tired (fatigue). ? A fever. ? Sore throat. ? Bad breath. How is this diagnosed? This condition is diagnosed based on: ? Your symptoms. ? Your medical history. ? A physical exam. ? Tests to find out if your condition is short-term (acute) or long-term (chronic). Your doctor may: ? Check your nose for growths (polyps). ? Check your sinuses using a tool that has a light (endoscope). ? Check for allergies or germs. ? Do imaging tests, such as an MRI or CT scan. How is this treated? Treatment for this condition depends on the cause and whether it is short-term or long-term. ? If caused by a virus, your symptoms should go away on their own within 10 days. You may be given medicines to relieve symptoms. They include: ? Medicines that shrink swollen tissue in the nose. ? Medicines that treat allergies (antihistamines). ? A spray that treats swelling of the nostrils.? ? Rinses that help get rid of thick mucus in your nose (nasal saline washes). ? If caused by bacteria, your doctor may wait to see if you will get better without treatment. You may be given antibiotic medicine if you have: ? A very bad infection. ? A weak body defense system. ? If caused by growths in the nose, you may need to have surgery. Follow these instructions at home: Medicines ? Take, use, or apply [id number] and prescription medicines only as told by your doctor. These may include nasal sprays. ? If you were prescribed an antibiotic medicine, take it as told by your doctor. Do not stop taking the antibiotic even if you start to feel better. Hydrate and humidify ? Drink enough water to keep your pee (urine) pale yellow. ? Use a cool mist humidifier to keep the humidity level in your home above 50%. ? Breathe in steam for 10?15 minutes, 3?4 times a day, or as told by your doctor. You can do this in the bathroom while a hot shower is running. ? Try not to spend time in cool or dry air. Rest ? Rest as much as you can. ? Sleep with your head raised (elevated). ? Make sure you get enough sleep each night. General instructions ? Put a warm, moist washcloth on your face 3?4 times a day, or as often as told by your doctor. This will help with discomfort. ? Wash your hands often with soap and water. If there is no soap and water, use hand emergency services director. ? Do not smoke. Avoid being around people who are smoking (secondhand smoke). ? Keep all follow-up visits as told by your doctor. This is important. Contact a doctor if: ? You have a fever. ? Your symptoms get worse. ? Your symptoms do not get better within 10 days. Get help right away if: ? You have a very bad headache. ? You cannot stop throwing up (vomiting). ? You have very bad pain or swelling around your face or eyes. ? You have trouble seeing. ? You feel confused. ? Your neck is stiff. ? You have trouble breathing. Summary ? Sinusitis is swelling of your sinuses. Sinuses are hollow spaces in the bones around your face. ? This condition is caused by tissues in your nose that become inflamed or swollen. This traps germs. These can lead to infection. ? If you were prescribed an antibiotic medicine, take it as told by your doctor. Do not stop taking it even if you start to feel better. ? Keep all follow-up visits as told by your doctor. This is important. This information is not intended to replace advice given to you by you (more content not included)... Normal [facility] ED Patient Summaryon 022 ED Patient Summary [place] [id number] Patient Discharge Instructions Person Information Name: WYATT HARRINGTON Age: 46 Years Arrival Date: 12/29/2021 20:04:48 Discharge Diagnosis: 1:Acute sinusitis; 2:Acute pharyngitis Primary Care Physician: ALISHA SELLERS MD Provider Information Primary Provider: Bernabe Eller MD Advanced Roller:None The exam and treatment you received in the Emergency Department were for an urgent problem and are not intended as complete care. It is important that you follow up with a doctor, nurse practitioner, or physician?s wet process miller head assistant for ongoing care. If your symptoms become worse or you do not improve as expected and you are unable to reach your usual health care provider, you should return to the Emergency Department. We are available 24 hours a day. WAYTT HARRINGTON has been given the following list of patient education materials, prescriptions and follow-up instructions: Follow-up Instructions: With: Address: When: Call for test results With: Address: When: ALISHA VERITO [address] [place] [address] [employer] (1) In 3 days 01/01/2022, only if needed In the event that this physician does not participate in your insurance network, please consult with your insurance company to find a nearby participating provider. Patient Education Materials: Sinusitis, Adult, Dybx-rl-Fumj; Pharyngitis, Zfwf-rf-Jqck A MESSAGE TO ALL PATIENTS REGARDING OPIOIDS PRESCRIPTION OPIOIDS: WHAT YOU NEED TO KNOW Prescription opioids can be used to help relieve fdxinaqt-zr-idfkiv pain and are often prescribed following a surgery or injury, or for certain health conditions. These medications can be an important part of the treatment but also come with serious risks. It is important to work with your healthcare provider to make sure you are getting the safest, most effective care. WHAT ARE THE RISKS AND SIDE EFFECTS OF OPIOID USE? Prescription opioids carry serious risks of addiction and overdose, especially with prolonged use. An opioid overdose, often marked by slowed breathing, can cause sudden . The use of prescription opioids can have a number of side effects as well, even when taken as directed: ? Tolerance?meaning you might need to take more of the medication for the same pain relief ? Physical dependence?meaning you have symptoms of withdrawal when a medication is stopped ? Increased sensitivity to pain ? Constipation ? Nausea, vomiting, and dry mouth ? Sleepiness and dizziness ? Confusion ? Depression ? Low levels of testosterone that can result in lower sex drive, energy, and strength ? Itching and sweating RISKS ARE GREATER WITH: ? History of drug misuse, substance use disorder, or overdose ? Mental health conditions (such as depression or anxiety) ? Sleep apnea ? Older age (65 years and older) ? Avoid alcohol while taking prescription opioids. Also, unless specifically advised by your health care provider, medications to avoid include: ? Benzodiazepines (such as Xanax or Valium) ? Muscle relaxants (such as Soma or Flexeril) ? Hypnotics (such as Ambien or Lunesta) ? Other prescription opioids KNOW YOUR OPTIONS Talk to your health care provider about ways to manage your pain that don?t involve prescription opioids. Some of these options may actually work better and have fewer risks and side effects. Options may include: ? Pain relievers such as acetaminophen, ibuprofen, and naproxen ? Some medication that are also used for depression or seizures ? Physical therapy and exercise ? Cognitive behavioral therapy, a psychological, goal-directed approach, in which patients learn how to modify physical, behavioral, and emotional triggers of pain and stress. IF YOU ARE PRESCRIBED OPIOIDS FOR PAIN: ? Never take opioids in greater amounts or more often than prescribed. ? Follow up with your primary health care provider. o Work together to create a plan on how to manage your pain. o Talk about ways to help manage your pain that don?t involve prescription opioids. o Talk about any and all concerns and side effects. ? Help prevent misuse and abuse o Never sell or share prescription opioids. o Never use another person?s prescription opioids. ? Store prescription opioids in a secure place and out of reach of others (this may include visitors, children, friends, and family). ? Safely dispose of unused prescription opioids: Find your community drug take-back program or your pharmacy mail-back program, or flush them down the toilet, following guidance from the Food and Drug Administration (www.fda.gov/Drugs/Re sourcesForYou). ? Visit www.cdc.gov/drugoverd ose to learn about the risks of opioids abuse and overdose. ? If you believe you may be struggling with addiction, tell your health care aid an (more content not included)... Normal [facility] MICRO OTHER TESTSOrdered By: Shailesh Dye on 12-29-2021 Rapid COV Int NEG Ctl Pass (12/29/21 9:38 PM) Normal [facility] Man Sero Rapid COV Int POS Ctl Pass (12/29/21 9:38 PM) Normal [facility] Man Sero S. pyogenes Ag IA.rapid Ql (Throat) Negative (12/29/21 9:38 PM) Normal Negative [facility] Man Sero SARS-CoV+SARS-CoV-2 (COVID-19) Ag IA.rapid Ql (Resp) Not Detected (12/29/21 9:38 PM) Normal Not Detected [facility] Man Sero Rapid COVID Antigen ([facility])on 12-29-2021 ADMITTED TO INTENSIVE CARE UNIT FOR CONDITION OF INTEREST:FIND:PT: NO Normal [facility] Comment on above: Performed By: #### 2 [id number] ####[place] [address] EMPLOYED IN A HEALTHCARE SETTING:FIND:PT: NO Normal [facility] Comment on above: Performed By: #### 2 [id number] ####[place] [address] FIRST TEST FOR CONDITION OF INTEREST:FIND:PT: NO Normal [facility] Comment on above: Performed By: #### 2 [id number] ####[place] [address] HAS SYMPTOMS RELATED TO CONDITION OF INTEREST:FIND:PT: YES Normal [facility] Comment on above: Performed By: #### 2 [id number], [id number] ####[place] [address] HOSPITALIZED FOR CONDITION OF INTEREST:FIND:PT: NO Normal [facility] Comment on above: Performed By: #### 2 [id number], [id number], [id number] ####[place] [address] STATUS:FIND:PT: Unknown Normal [facility] Comment on above: Performed By: #### 2 [id number], [id number] ####[place] [address] RESIDES IN A [facility] CARE SETTING:FIND:PT: NO Normal [facility] Comment on above: Performed By: #### 2 [id number], [id number] ####[facility] [address] [place] [address] C Urineon 11-10-2021 Bacteria identified Cx Nom (U) Microbiology PROCEDURE: Urine Culture [R1] SOURCE: U CleanCatch BODY SITE: COLLECTED DATE/TIME: 11/07/2021 15:20 EDT RECEIVED DATE/TIME: 11/08/2021 11:40 EDT START DATE/TIME: 11/08/2021 11:40 EDT FREE TEXT SOURCE: OMAR ALFARO, Misty NELSON CNP, Misty Shelton FINAL REPORTS Final Report [] Verified Date/Time: 11/10/2021 07:00 EDT 200 cfu/ml Mixed skin contaminants Performing Locations R1: This test was performed at: [facility], [address] [place] [address], [id number]- , , Normal [facility] Comment on above: Performed By: #### 2 [id number] #### [facility] [address] [place] [address] Chlamydia/Gonococcus, NAAon 11-10-2021 C. trachomatis rRNA JACEY+probe Ql (Unsp spec) Negative Invalid Interpretation Code Negative [facility] Comment on above: Performed By: #### 1 [id number] ####[address] [address] N. gonorrhoeae rRNA JACEY+probe Ql (Unsp spec) Negative Invalid Interpretation Code Negative [facility] Comment on above: Result Comment: Perf ormed at: =[facility] [id number] MD Yana Tan Performed By: #### 1 [id number] ####[address] [address] Coding Summary.on 11-09-2021 Coding Summary. CD:[id number] G h0bWw+PGhlYWQ+ZN1CCPD pH55kqFYbjW0ZB5zEJR0E QKOOXFIBRL6GCP3bvEU4R NbrW3WeooPj UrvqaUDrQK70SCr6JSN7t PowLNizcR4dxZRhI9c2Qr MhZF04mG33UJgdZSHsZaC 3LjZpbjsgbWFy J5jeYfSeyBVbTbb+PHRhY mxlIHdpZHRoPScxMDAlJy JfwQbpFP2dAm4oDMBiDHK vbGxhcHNlOiBj n8pxTVDfCFtdKH9mlHewK 8KgjCH5SMBka0c8Zh64zO I+WMDdKNX6cAppZOsrw06 9UfBrv8qfHCR9 eNLjKMsmVAD1Q81dh0F5Q BKfFTWkQMG4iTV7gK2gxJ ganzrbT9KnnCUnYwS8BEQ 1xWIodX5dnGdg gqazlP1qSbn+M36BUK3NX RGSXR6LHfu6W6UtWrwqzJ I+VM81EXUyZE98sBFezBK wz4cfzQe5EnQd XGBxSTJ3tRptXBoly6CeR TTcL87qaHQqh8M4LDHrfF unpKOrKzTdnXZ0bS4aEAv yeyenf8pkicuu Fxhoq8nmgh52nT58O48aG DfoTPRbGLU5GXMpKZGypJ csuc1lqW8bEo3+ZXkhz8d ho6bzvPe7BdRq XSYtjlJgfLpqKOF5c2RzD z30S9WaaGacz4GePdg9yt 17tMZqk5N7gVA3ORdsYOM mcW6iPWmzWmM3 PDCpZyNhaP41xPZjTYrlK s7aqPasdGrgCD2eXBIbil qgLPHrjU7vWBGklOZihWu fYG1eJFFxpdmo p097IzFrZSI9AUOteCUuC 7FyqP7vOaZzOBYaTUSuT1 XsbQKeGDlxY881IAfvRcU 8SLBsibNwD8Ok NXErkNniGdJ6w3C0Mk7Rm 8SxmtywDFM6WFejYYV4Nf Q0BpJtAbX2T9NbJye5KYO rfHpfIE7zW1De UYDiubsisyqoiBK7BNNwD CWdyN77lSJkSGwnJt6ou2 Y1t410YOMfYUZdoP02Gs4 udDogMTBwdCBU lL4kwcymi6hyuxhaVaLoQ LPpIHa4SLh2CGWpvPjqGd MoVTS8AuP0FWU2mKCozI8 drZegoywjbC7a Oyc+F08wnW5dKGO5JQA8h tmgVZCtelDoGZ29GR59Y8 RyPjwvdGFibGU+PGRpdiB htInbRK4hUnFv h2kav8XpSDliU4IkARXyH FhxKzc2WMBvJJD8jXX5sX 1tLSIsEXedz8N5eHC5L6T vwrOtyp2bz1pw QXIyEQjeY44seHHtl6E0B HEfhXF5YJEmdUexBuWwkR 93Oyc+VMRxsNcxr8ZcRvz gy1uul2kikPf4 RoLfIQFoerIxgCuyGQJ7j 1KjIn85O67vICydEFVgZJ MzOAOuNSKxdPidlt7bdX8 wIi8+PGNvbCB3 fFO0yK5tDBYoDhJ1KMslG 105EzQmuMRcAqcws4hjl1 jqaVr5BsLsBMRxtqLpkGu iVHX4v5FxTv14 I51oPVfqGHRuJSNqHRXrH RCtfSkfhj6bgV4hGr5+PC 6ku7rmjv12bY93bSY+PHR iTPL1xIjsLWfr YLCkcJ4iCIheUmY1RKSoT lGvyJ43jNPgBLmaRi2keC wosCbiJY9pGOLesysvb83 7SyCdx8uhIUYn rROkTUcxGFC7L28ct0P7O BLiLBJdRVE3lTI2dC7ejS lnbjogbGVmdDsgdmVydGl zMLkfVZeyZ961 IHRvcDsnPlBhdGllbnQgT gLfYUx1D6KyPqx8KKKjrA tzRZ7quIKoVWuqDz8jzVp xfPjtVL1nUHQb xlwgm796YcRun0glJTOnb JDrSKzuVHB6Q77xt1V1DP EbCMTvPXJ2bXB9vS6zyTc nbjogbGVmdDsg prYrxPoaMGemNShsA344Y HRvcDsnPkJpcnRoIERhdG C6PY65WA19wWFxq9R2mTF 5A3IiFDLjmdjp zcemlTA5BCIcJCKwwV18F f4eoSmdTn1dTHKwLEN3PI MkbQJwD3YvhU7hJfOdWKN aENXjJ6EgkRDp GNysI929DMkrCjE5GALmq zMeR5VgLQBllEuoMfT0x4 Q9Uu6LS0K2HD25GD09hIN rd8S6sHC8H2Pa KIVkymhzzwqlxTK6KNGiP OUmzL46Rt3cdIfmIu4uHL IeWRV4LVUvtMMrH2GfwA0 yOiAjMDAwMDAw O5SdoXBuGVtfH945BOobN oT0TAOgzrFpO6AxPMAtdR phOxW3s0Q0Zq2UPRs9PY1 1TQ78fKLia0W6 aFW1T5YuERAfrxtvooqxu SA4SXPhXKJeeH11Pt9krG lnIq0yTCNhRQM0TOYmySG dA5PfaS6bTqTt KWVpIHLkN1AmpOFuDQnpM 970NPuwLeR4QKPmctTbL4 FlLLDdsSjnCrE4z5J8Zc7 ZSSUuTI58RMF4 gXH4YT47BC83O2CkFernf GFibGU+PHRhYmxlIHdpZH RoPScxMDAlJyBzdHlsZT0 mKl0nJPEqREYr jOqbsZEiEcYbr9zpLKOhW QqvMK8yuKtuT0DeaUF4EY Mcf3e5Nc22N98rE5TcbRS +TUKwlLE9zBW3 tC3nXqEvMwP3NPbrG989K nMvsMFhPehhi4vpp1jwqN z0IyE9LXLezuPmnJvoSNS 5m5SxTq83A09v IHdpZHRoPSIxNSUiIHZhb Mtvas4jmJ3mCr9+PGNvbC W1vVV2dI5lFmLsPcK3ZOh qA306KvJuvMMr Udnfy6fsw9bqrEs8JcVgT IWoeyOuiSjrVJT3y0MoGu 06Q2SrgHrtp4CbHvx5yr0 3uDIzt5P9eWK5 A1QmDERmzqutoFZqiMgcN M4dJJCjcyyqXWYaoA5iGC BtF0h7IkIzUdN5SQuuO4X khoF1XHHsbVOk QFqvDGZ5P04qu2E0APBvW IClYQE1yFB2bS9ngLygbu ogbGVmdDsgdmVydGljYWw oVBciR431FCMp rXegDRUvaJ7yXIQawLYxn YxvPR8fOPIkmzlqZtHCNE hUIteDPkvaJU8XDLnuRLd vdGQ+PHRkIHN0 pUkeNKcnPRCpdM5tIMQtW 8h5RvSvUkV6XMboX3OxIU YcmoitDp94fE9yWcZdJpO 4ZLieL0GrnvF4 KFRdfNZdZUruAII8K45wo 1V5AIXeLOYtLLO1xGF0yI 1hbGlnbjogbGVmdDsgdmV ydGljYWwtYWxp R457BBKwkUoeFyIlVwUyA fG5TaH2U6VgYna9RIDyzV syOW2hwNHuWFwiTm4rtWm heEjvMO5oLCVw xiuyESKvxZ0fWDOaoNMtj VieGL4nDDKzykhye178Jq IgHXR8VTYemUYdS4HxaG6 yOiAjMDAwMDAw O4DrxREkMZbnM119HJkyS aP3AKOtgnMrL9FaAPOosS csFbA4v6X7Mf29VsWRLWG yczwvdGQ+PHRk GZQ4hZsbKSimCZPkiD8qU HBwL2s1MmNoJpW3RAhkT3 BeZHUcqxkwTs63bR2mNaF vCeQ2VAhjB1Hu zqD5KSScfFPhOUyrCDK4E 53ru8O9XVAvADFsRZF4xA A1cT9dlZwyxzgobHZhzHi gdmVydGljYWwt ICgaM767BYOroXwcDjTpm WFsZTwvdGQ+LMOtXDK2rV abZAmmYUZxdC6bQTHiA1v 9CwYdDmP4IHkw V4GoUQBhnhtsTx37eK7hL nHzSrW3YZsqK0XodoN5US KjtETkBOenHBS3D60jc5J 0GJKiXMAtKSV4 tIC0yT1wfCibyeesmYXxe DsgdmVydGljYWwtYWxpZ2 80MBEudEjyNlgfPmMSpi9 lQP6lNphawLD+ ED66xk24Q6KuTiqpEgl2Y SGiXZB5nRI4dL3iUNYiPQ vcw6J3gBZ4G1JhltAowx0 uz1gdZQFpSXvv Y72yeIEev8A0QBUzuPJ1Z XZluUetBlCtkV38Gfw+PG TepKuyc9ZgConav6dry4o qgXh6AvVfZPQv ykOvjWqrXYX0k3QmGe18E 29sIHdpZHRoPSIzMCUiIH JpsOqrpd2txP1wQw0+PGN jvIQ4bMM5iS2x ElUmRhY7PLrxD201XdJkk WPoUreur3zjj8qtjVf8Xl OoHTFmgtKpgNfrBQJ9j2J xCx75G1JzwLtf a6AjWcu0ze35pNQlt2D4l QE1E0KtEXJiyhdveVSikL bbXJ5lQQNnsvttBQUduV4 sIHUyK0v9ZqKj KwR2JMeyQ1BmjkR7BHOhg YJmQDHqlVTJuU6khibkg2 dioijfCaDeVCPnGOc6GMb 0LWFsaWduOiBs EXT8ZdI5CPY7qSWjxX6no LdndhigbU5cBzt+UGh5c2 pttIYaQZ4bjYM8BW18YS7 5xDObc2Z8hFO2 O3OnINRfqkfubzvutZC7Y UObLQSfkY99Xw6oyUysQs 0zNGHuGLP6AWBqxEZgV5F vlJ0sLoIgJROa VWSxX3IcyHLdZApsB435M YwfDtJ4WCLnphRtZ0HmTF TacIuaLnM1y4M1Sx5HMR7 7DW94AJ17eGRc i9G3pNH0G6CsAOIimspvt mhhiIP1ALOnHDVhaX04Ey 1sbAdeAm4dFHHyNOO1QMU uzKCxP5ErgI9o TwZyYDPhKQCgP1SqnLUtA TlrQ424JEtuUpP4SDYjef GuM2UbNOKmjOghMaA7p9Y 8Zp1OSe55LM02 XS27eKIpo5E2aRD5T9NaQ VRfnelcymglkAW9EJTwOI DajB01Qu9eqRgmDm1rNMB jBEC9KVBsoCGp U8OiuS6eReFbYDJwWIPwM 2KidCCiQQegI527RYxoWq T0EKNcgdCuJ2TaFRRobHr wEmF3n9N5Pe4D JUaucuj5W4ZqUguqjUC+P B80SBQqTT73kPBpvUFsw7 kiiJt8FeCsWMJbUEN4pCg iRXbmp7XpRVFj Y29s (more content not included)... Normal [facility] Vaginitis/Vaginosis, DNA Pro beon 11-09-2021 Taniya sp rRNA Probe Ql (Vag fld) Negative Invalid Interpretation Code Negative [facility] Comment on above: Performed By: #### 3 [id number] ####[facility] [address] [place] [address] G. vaginalis rRNA Probe Ql (Genital specimen) Positive Abnormal Negative [facility] Comment on above: Performed By: #### 3 [id number] ####[facility] [address] [place] [address] T. vaginalis rRNA Probe Ql (Genital specimen) Negative Invalid Interpretation Code Negative [facility] Comment on above: Result Comment: Perf ormed at: [facility] [address] [id number] PhD Priya Govea Performed By: #### 3 [id number] ####[facility] [address] [place] [address] Ambulatory Visit Summaryon 0 11-07-2021 Ambulatory Visit Summary WYATT HARRINGTON :1975 Visit Date:11/07/2021 Ambulatory Visit Instructions Your Diagnosis Dysuria Vaginal odor Tests Performed Urinls Dip Stick Non-Auto w/ Micrscpy POC 76577 Your Care Team Attending Physician - Misty NELSON CNP Primary Care Physician - ALISHA SELLERS MD This Is Your Medications List Contact prescribing physician if questions or concerns acetaminophen-hydroco done (Bristol 325 mg-5 mg oral tablet) albuterol (Ventolin HFA 90 mcg/inh Aerosol) amphetamine-dextroamp hetamine (amphetamine-dextroam phetamine 15 mg oral capsule, extended release) brompheniramine/dextr omethorphan/PSE (Bromfed DM oral syrup) buPROPion (buPROPion 75 mg Tab) clonazepam (clonazepam 0.5 mg oral tablet) conjugated estrogens (Premarin 0.625 mg Tab) conjugated estrogens (Premarin 0.625 mg oral tablet) Procedures Performed Breast (07/27/2018), Hysterectomy (02/26/2015). Discharge Vitals Temperature (Oral) 36.4 ?C Heart Rate (Peripheral) 76 Blood Pressure 100/60 Height 156.0 cm Height 156 cm Weight 49.8 kg Weight 49.8 kg BMI 20.46 Medications What How Much When Why Instructions Unchanged acetaminophen-hydroco done (Bristol 325 mg-5 mg oral tablet) 1 Tablets By Mouth Every 4 hours as needed for for pain Fracture of radial neck, left, closed Contact prescribing physician if questions or concerns Unchanged albuterol (Ventolin HFA 90 mcg/ inh Aerosol) 2 Puffs Inhalation Once as needed for for wheezing Contact prescribing physician if questions or concerns Unchanged amphetamine-dextroamp hetamine (amphetamine-dextroam phetamine 15 mg oral capsule, extended release) Contact prescribing physician if questions or concerns Unchanged brompheniramine/ dextromethorphan/ PSE (Bromfed DM oral syrup) 10 Milliliter By Mouth 4 times a day as needed for for cold symptoms Contact prescribing physician if questions or concerns Unchanged buPROPion (buPROPion 75 mg Tab) Contact prescribing physician if questions or concerns Unchanged clonazepam (clonazepam 0.5 mg oral tablet) Contact prescribing physician if questions or concerns Unchanged conjugated estrogens (Premarin 0.625 mg oral tablet) Contact prescribing physician if questions or concerns Unchanged conjugated estrogens (Premarin 0.625 mg Tab) Contact prescribing physician if questions or concerns Test Results Urinls Dip Stick Non-Auto w/ Micrscpy POC 96640 (11/07/2021) Bilirubin Urine Dipstick - Negative Blood Urine Dipstick - Negative Glucose Urine Dipstick - Negative Ketones Urine Dipstick - Negative Leukocytes Urine Dipstick - Negative Nitrite Urine Dipstick - Negative Protein Urine Dipstick - Negative Specific Reddell Urine Dipstick - 1.010 Urine Appearance Urine Dipstick - Clear Urine Color Urine Dipstick - Yellow Urobilinogen Urine Dipstick - Normal 0.2-1 EU/dl pH Urine Dipstick - 6 Allergies No Known Allergies Problems Ongoing - Any problem that you are currently receiving treatment for. ADD (attention deficit disorder) Anxiety Normal [facility] Office/Clini c Noteon 11-07-2021 Family Medicine Office/Clinic Note Chief Complaint Est UTI or STD HPI Staff Wyatt is a 46 year old female presenting for uti symptoms. Onset- 3 days ago Frequency- yes Urgency- yes Small volume void- no Dysuria- yes Odor- Yes Pressure- no Back pain- no Nocturia- no Fever/chills- no Nausea/vomiting- no UTI or other reason for antbx's last 30 days- no Patient states could be STD if not UTI, same partner for a year but now having issues History of Present Illness I have reviewed and verified the staff HPI to be accurate for this encounter. Patient presents in office for concern of dysuria, urinary frequency, urgency, foul-smelling odor from genital area. Symptoms x3 days. Denies fever or chills. Denies nausea or vomiting. Denies frequent UTIs denies recent antibiotics for UTI in the last month. Patient is unsure if she could have possible STD exposure. Would like tested. Denies known vaginal discharge. Denies genital sores or lesions. Denies hematuria. No OTC medications used. Denies genital pruritus or irritation. Review of Systems PHQ Score Initial Depression Screen Score: 0 Physical Exam Vitals & Measurements T: 36.4 ?C(Oral) HR: 76(Peripheral) BP: 100/60 SpO2: 99% HT: 156.0 cm HT: 156 cm WT: 49.8 kg WT: 49.8 kg BMI: 20.46 General: Well developed, well nourished, in no acute distress Neck: no adenopathy Lungs: clear to auscultation throughout, no wheezing, no rales. No respiratory distress Cardio: regular rate and rhythm, no murmur Abdomen: soft, nondistended, BS normal and active x4. Denies tenderness. No guarding or grimacing, + suprapubic pressure Musculoskeletal: Denies back pain, flank pain, or CVA tenderness with percussion DIE CUTTER: Vaginal canal without any inflammation or edema. Does have moderate white, moderately thick vaginal discharge. No genital sores or lesions noted. Patient had previous total hysterectomy. + whiff test in office Mental Status: Alert and oriented x3. Normal mood and affect Assessment/Plan 1. Dysuria (R30.0: Dysuria) UA unremarkable. Discussed UTI unlikely. Will culture urine to ensure no bacterial growth. Fluids and rest encouraged. Pelvic exam completed for STDs, vaginal infections Ordered: Chlamydia/Gonococcus, JACEY Urine Culture Urinls Dip Stick Non-Auto w/ Micrscpy POC 14482 Vaginitis/Vaginosis, DNA Probe 2. Vaginal odor (N89.8: Other specified noninflammatory disorders of vagina) Pelvic exam completed. Positive whiff test in office. Discussed with patient suspect BV. Will treat with Flagyl. Finish entire course. Discussed no alcohol use while on antibiotic and for 3 days after finishing antibiotic course as will cause vomiting. Will call with results of chlamydia, gonorrhea, trichomonas, BV, yeast test. Avoid intercourse until results of test to rule out STDs. Will discuss further treatment as needed. Patient verbalized understanding treatment plan. Ordered: metronidazole, 500 mg = 1 tab(s), Oral, q12hr, X 7 day(s), # 14 tab(s), Refills(s) 0, Pharmacy: [facility], 156, cm, 11/07/21 14:59:00 EDT, Height/Length Dosing, 49.8, kg, 11/07/21 14:59:00 EDT, Weight Dosing Chlamydia/Gonococcus, JACEY Vaginitis/Vaginosis, DNA Probe Follow-up With When Contact Information ALISHA SELLERS MD, [place] [address]- Additional Instructions: Patient Education Dysuria Problem List/Past Medical History Ongoing ADD (attention deficit disorder) Anxiety Historical No qualifying data Procedure/Surgical History Breast (07/27/2018), Hysterectomy (02/26/2015). Medications amphetamine-dextroamp hetamine 15 mg oral capsule, extended release, Not taking Bromfed DM oral syrup, 10 mL, Oral, QID, PRN, Not taking buPROPion 75 mg Tab clonazepam 0.5 mg oral tablet, Not taking Flagyl 500 mg Tab, 500 mg= 1 tab(s), Oral, q12hr Bristol 325 mg-5 mg oral tablet, 1 tab(s), Oral, q4hr, PRN, Not taking Premarin 0.625 mg oral tablet, Not taking Premarin 0.625 mg Tab Ventolin HFA 90 mcg/inh Aerosol, 2 puff(s), Inhalation, Once, PRN, Not taking Allergies No Known Allergies Social History Alcohol Substance Abuse Tobacco Former smoker, quit more than 30 days ago Tobacco Use:. Never Smokeless Tobacco Use:. Cigarettes, 11/07/2021 Former smoker, quit more than 30 days ago Tobacco Use:. 0.5 per day. 2 year(s). Started age 41.0 Years. Stopped age 43 Years. Ready to change: No. Household tobacco concerns: No., 03/15/2019 Immunizations Vaccine Date Status diphtheria/pertussis, acel/tetanus adult 12/21/2018 Given Lab Results Ambulatory Point of Care Results Bilirubin Urine Dipstick: Negative (11/07/21 14:48:00) Blood Urine Dipstick: Negative (11/07/21 14:48:00) Glucose Urine Dipstick: Negative (11/07/21 14:48:00) Ketones Urine Dipstick: Negative (11/07/21 14:48:00) Leukocytes Urine Dipstick: Negative (11/07/21 14:48:00) Nitrite Urine Dipstick: Negative (11/07/21 14:48:00) Protein Urine Dipstick: Negative (11/07/21 14:48:00) Specific [place] Urine Di (more content not included)... Normal [facility] Comment on above: Result Comment: Elec tronically Signed By: Misty NELSON CNP\.br\Date and Time Signed: 11/07/21 15:26 EDT Patient Educationon 11-08-19 Patient Education Urology Dysuria Dysuria is pain or discomfort while urinating. The pain or discomfort may be felt in the part of your body that drains urine from the bladder (urethra) or in the surrounding tissue of the genitals. The pain may also be felt in the groin area, lower abdomen, or lower back. You may have to urinate frequently or have the sudden feeling that you have to urinate (urgency). Dysuria can affect both men and women, but it is more common in women. Dysuria can be caused by many different things, including: ? Urinary tract infection. ? Kidney stones or bladder stones. ? Certain sexually transmitted infections (STIs), such as chlamydia. ? Dehydration. ? Inflammation of the tissues of the vagina. ? Use of certain medicines. ? Use of certain soaps or scented products that cause irritation. Follow these instructions at home: General instructions ? Watch your condition for any changes. ? Urinate often. Avoid holding urine for long periods of time. ? After a bowel movement or urination, women should cleanse from front to back, using each tissue only once. ? Urinate after sexual intercourse. ? Keep all follow-up visits as told by your health care provider. This is important. ? If you had any tests done to find the cause of dysuria, it is up to you to get your test results. Ask your health care provider, or the department that is doing the test, when your results will be ready. Eating and drinking ? Drink enough fluid to keep your urine pale yellow. ? Avoid caffeine, tea, and alcohol. They can irritate the bladder and make dysuria worse. In men, alcohol may irritate the prostate. Medicines ? Take zryz-ujl-zpzwidi and prescription medicines only as told by your health care provider. ? If you were prescribed an antibiotic medicine, take it as told by your health care provider. Do not stop taking the antibiotic even if you start to feel better. Contact a health care provider if: ? You have a fever. ? You develop pain in your back or sides. ? You have nausea or vomiting. ? You have blood in your urine. ? You are not urinating as often as you usually do. Get help right away if: ? Your pain is severe and not relieved with medicines. ? You cannot eat or drink without vomiting. ? You are confused. ? You have a rapid heartbeat while at rest. ? You have shaking or chills. ? You feel extremely weak. Summary ? Dysuria is pain or discomfort while urinating. Many different conditions can lead to dysuria. ? If you have dysuria, you may have to urinate frequently or have the sudden feeling that you have to urinate (urgency). ? Watch your condition for any changes. Keep all follow-up visits as told by your health care provider. ? Make sure that you urinate often and drink enough fluid to keep your urine pale yellow. This information is not intended to replace advice given to you by your health care provider. Make sure you discuss any questions you have with your health care provider. Document Released: 02/10/2005 Document Revised: 04/27/2018 Document Reviewed: 03/01/2018 [employer] Patient Education ? 2019 [employer] Normal [facility] XR Spine Lumbar Complete w/F arjun AND [place] 07-07-2021 XR Spine Lumbar Complete w/Flex AND Ext EXAM: LUMBAR SPINE SERIES including flexion and extension CLINICAL HISTORY: FINDINGS: No scoliosis is present. Vertebral body heights are normal. There is mild disc space narrowing at each level. The spine is in anatomic alignment. There is no significant change in alignment between flexion or extension. No acute fracture is identified. Soft tissues are relatively unremarkable. IMPRESSION: There are mild degenerative changes without change in alignment. Report reported and signed by LISBETH DEL TORO on 07/08/2021 0946 Normal [facility] Specialist Vital Signs Date Time Vital Sign Value Performing Clinician Facility 09-12-2023 10:26-0400 Body height 160.02 cm [facility] 09-12-2023 10:26-0400 Body mass index (BMI) [Ratio] 21.8 kg/m2 [facility] 09-12-2023 10:26-0400 Body weight 55.9 kg [facility] 09-12-2023 10:26-0400 Diastolic blood pressure 54 mm[Hg] [facility] 09-12-2023 10:26-0400 Heart rate 75 /min [facility] 09-12-2023 10:26-0400 Systolic blood pressure 79 mm[Hg] [facility] 06-13-2022 10:30-0500 Body height 160.02 cm Alisha Sellers Other [employer] [facility] [employer] Other 06-13-2022 10:30-0500 Body mass index (BMI) [Ratio] 20.55 kg/m2 Alisha Sellers Other [facility] Other 06-13-2022 10:30-0500 Body weight 52.62 kg Alisha Sellers Other [facility] Other 06-13-2022 10:30-0500 Diastolic blood pressure 80 mm[Hg] Alisha Sellers Other [facility] Other 06-13-2022 10:30-0500 SaO2% (BldA) [Mass fraction] 98 % Alisha Sellers Other [facility] Other 06-13-2022 10:30-0500 Systolic blood pressure 122 mm[Hg] Alisha Sellers Other [facility] [employer] Other 12-29-2021 20:10-0400 Body temperature 99.14 [degF] Bernabe Eller [facility] 12-29-2021 20:10-0400 Diastolic blood pressure 77 mm[Hg] Bernabe Eller [facility] 12-29-2021 20:10-0400 Heart rate 105 /min Bernabe Eller [facility] 12-29-2021 20:10-0400 Respiratory rate 16 /min Bernabe Eller [facility] 12-29-2021 20:10-0400 SaO2% (BldA) [Mass fraction] 99 % Bernabe Eller [facility] 12-29-2021 20:10-0400 Systolic blood pressure 109 mm[Hg] Bernabe Eller [facility] 11-07-2021 14:55-0400 Body temperature 97.52 [degF] Misty NELSON [facility] 11-07-2021 14:55-0400 Diastolic blood pressure 60 mm[Hg] Misty NELSON [facility] 11-07-2021 14:55-0400 Heart rate 76 /min Misty NELSON [facility] 11-07-2021 14:55-0400 SaO2% (BldA) [Mass fraction] 99 % Misty NELSON [facility] 11-07-2021 14:55-0400 Systolic blood pressure 100 mm[Hg] Misty NELSON [facility] Encounters Encounter Date Encounter Type Care Provider Facility Start: 10-04-2023 End: 10-04-2023 ambulatory Alisha Sellers Facility:[facility] Start: 10-04-2023 Encounter for genera l adult medical examination without abnormal findings Natalia Cedillo [facility] Start: 10-04-2023 End: 10-04-2023 ambulatory MD Alisha Sellers Work Phone: [facility] Work Phone: Start: 10-04-2023 End: 10-04-2023 Patient encounter procedure MD Alisha Sellers Work Phone: [facility] Work Phone: Start: 09-12-2023 End: 09-12-2023 ambulatory [facility] Work Phone: Start: 09-12-2023 End: 09-12-2023 Patient encounter procedure [facility] Work Phone: Start: 09-07-2023 Non-patient / Non-visit [facility] [employer] Work Phone: Start: 08-17-2023 End: 08-17-2023 ambulatory ANGEL Uriarte SALLIE Not Available Start: 08-01-2023 End: 08-01-2023 ambulatory HANNAH LUU Not Available Start: 07-20-2023 Non-patient / Non-visit [facility] [employer] Work Phone: Start: 03-24-2023 End: 03-24-2023 ambulatory Alisha Sellers Other [facility] [employer] Other Start: 03-24-2023 Telephone encounter Alisha Sellers [facility] Start: 12-26-2022 End: 12-26-2022 ambulatory Kedar Diaz Other [facility] Other Start: 12-26-2022 Telephone encounter Kedar Diaz [facility] Start: 12-03-2022 End: 12-03-2022 ambulatory Alisha Sellers Facility:[facility] Start: 12-03-2022 End: 12-03-2022 ambulatory MD Alisha Sellers Work Phone: [facility] Work Phone: Start: 12-03-2022 End: 12-03-2022 Patient encounter procedure MD Alisha Sellers Work Phone: [facility] Work Phone: Start: 09-26-2022 End: 09-26-2022 ambulatory Alisha Sellers Other [facility] Other Start: 09-26-2022 Telephone encounter Alisha Sellers [facility] Start: 06-29-2022 End: 06-30-2022 ambulatory Sharan Asher Facility:[facility] Start: 06-28-2022 End: 06-28-2022 ambulatory Alisha Sellers Other [facility] Other Start: 06-28-2022 Telephone encounter Alisha Sellers [facility] Start: 06-17-2022 End: 06-17-2022 ambulatory Alisha Sellers Other [facility] Other Start: 06-17-2022 Telephone encounter Alisha Sellers [facility] Start: 06-14-2022 End: 06-15-[address] ALISHA SELLERS Facility: Start: 06-13-2022 Encounter for genera l adult medical examination without abnormal findings Alisha Sellers [facility] Start: 06-13-2022 Office outpatient vi sit 15 minutes Alisha Sellers [facility] Start: 06-13-2022 End: 06-14-[address] ALISHA SELLERS Facility: Start: 12-29-2021 End: 12-29-2021 Emergency department patient visit Bernabe Eller Facility:[facility] Start: 12-29-2021 End: 12-29-2021 Emergency department patient visit Bernabe Eller [facility] Start: 11-16-2021 End: 11-17-2021 ambulatory YOUSUF WOLFF Facility: Start: 11-07-2021 ambulatory Bernabe Eller Facility:[facility] Start: 11-07-2021 End: 11-08-2021 ambulatory Misty NELSON Facility:[facility] Start: 11-07-2021 End: 11-07-2021 Lab Drop off Misty NELSON [facility] Start: 11-07-2021 End: 11-07-2021 Patient encounter procedure Misty NELSON [facility] Start: 04-14-2019 Gynecological examin ation normal Kedar Daiz Other [facility] Other Procedures Date Procedure Procedure Detail Performing Clinician Start: 07-27-2018 Breast structure (yu dy structure) Misty NELSON Start: 05-01-2017 Viral screening Artemio Diaz Other Start: 02-26-2015 Hysterectomy Misty GEE Start: 09-27-2006 visit Artemio Diaz Other Cosmetic surgery Alisha ramon Other Tuberculosis screening Ben Diaz Other Plan of Treatment Date Care Activity Detail Author Start: 10-04-2023 [facility] Start: 12-03-2022 Screening mammograph y of bilateral breasts MM screening mammo BI w/CAD [facility] Immunizations Immunization Date Immunization Notes Care Provider Fa edgar 09-27-2019 hepatitis B vaccine, adult dosage Kedar Diza Other [facility] 12-21-2018 tetanus toxoid, redu em diphtheria toxoid, and acellular pertussis vaccine, adsorbed Misty NELSON [facility] Payers Date Payer Category Payer Unknown [id number] 2022 Self-pay [id number] 2016 Unknown [id number] 2. [id number] 1975 Unknown [id number] 2.16.84 [id number] 1975 Unknown [id number] 2.16.84 [id number] 1975 Unknown [id number] 2.16.84 [id number] 1975 Unknown [id number] 2.16.8 [id number] 1975 Unknown [id number] 2.16.8 [id number] 1975 Unknown [id number] 2.16.8 [id number] 1975 Unknown [id number] 2.16.8 [id number] 1975 Unknown [id number] 2.16.8 [id number] 1975 Unknown [id number] 2.16.84 [id number] 1975 Unknown [id number] 2.16.84 [id number] 1959 Unknown [id number] Unknown [id number] 2.16.8 [id number] Unknown [id number] 2.16.8 [id number] Social History Date Type Detail Facility Start: 11-07-2021 End: 05-25-2023 Tobacco smoking status Ex-smoker (finding) [facility] Tobacco smoking status Never U[facility] Sex Assigned At Female [facility] Start: 1975 Sex Assigned At Female Marisela [facility] Functional Status Date Assessment Result Facility 12-29-2021 Functional Status Yes [facility] 11-07-2021 Functional Status N/A [facility] Clinical Notes 11-07-2021 to 12-26-2022 Note Date & Type Note Facility 12-26-2022 Evaluation note Encounter Date Diagnosis Assessment Notes Nov, Anxiety (ICD-10 - F41.9) [facility] [employer] Other 05-01-2023 Evaluation note* Encounter Date Diagnosis Assessment Notes Treatment Notes Treatment Clinical Notes September, Anxiety (ICD-10 - F41.9) [facility] [employer] Other 01-16-2023 Evaluation note* Encounter Date Diagnosis Assessment Notes Treatment Notes Treatment Clinical Notes May, Cervical radicular pain (ICD-10 - M54.12) Patient requested x-ray. Consider physical therapy May, Wellness examination (ICD-10 - Z00.00) This was not a wellness examination and lab orders were provided. May, Anxiety (ICD-10 - F41.9) Wyatt states she is stable on her present dose of medication and no changes are needed [facility] [employer] Other 08-03-2022 Hospital Discharge instructions Patient Education 12/29/2021 21:35:07 Sinusitis, Adult, Nzdf-bs-Hrro Sinusitis, Adult Sinusitis is soreness and swelling (inflammation) of your sinuses. Sinuses are hollow spaces in thebones around your face. They are located: Around your eyes. In the middle of your forehead. Behind your nose. In your cheekbones. Your sinuses and nasal passages are lined with a fluid called mucus. Mucus drains out of your sinuses. Swelling can trap mucus in your sinuses. This lets germs (bacteria, virus, or fungus) grow, which leads to infection. Most of the time, this condition is caused by a virus. What are the causes? This condition is caused by: Allergies. Asthma. Germs. Things that block your nose or sinuses. Growths in the nose (nasal polyps). Chemicals or irritants in the air. Fungus (rare). What increases the risk? You are more likely to develop this condition if: You have a weak body defense system (immune system). You do a lot of swimming or diving. You use nasal sprays too much. You smoke. What are the signs or symptoms? The main symptoms of this condition are pain and a feeling of pressure around the sinuses. Other symptoms include: Stuffy nose (congestion). Runny nose (drainage). Swelling and warmth in the sinuses. Headache. Toothache. A cough that may get worse at night. Mucus that collects in the throat or the back of the nose (postnasal drip). Being unable to smell and taste. Being very tired (fatigue). A fever. Sore throat. Bad breath. How is this diagnosed? This condition is diagnosed based on: Your symptoms. Your medical history. A physical exam. Tests to find out if your condition is short-term (acute) or long-term (chronic). Your doctor may: ?Check your nose for growths (polyps). ?Check your sinuses using a tool that has a light (endoscope). ?Check for allergies or germs. ?Do imaging tests, such as an MRI or CT scan. How is this treated? Treatment for this condition depends on the cause and whether it is short-term or long-term. If caused by a virus, your symptoms should go away on their own within 10 days. You may be given medicines to relieve symptoms. They include: ?Medicines that shrink swollen tissue in the nose. ?Medicines that treat allergies (antihistamines). ?A spray that treats swelling of the nostrils. ?Rinses that help get rid of thick mucus in your nose (nasal saline washes). If caused by bacteria, your doctor may wait to see if you will get better without treatment. You may be given antibiotic medicine if you have: ?A very bad infection. ?A weak body defense system. If caused by growths in the nose, you may need to have surgery. Follow these instructions at home: Medicines Take, use, or apply cnga-wfk-aiyznyw and prescription medicines only as told by your doctor. These may include nasal sprays. If you were prescribed an antibiotic medicine, take it as told by your doctor. Do not stop taking the antibiotic even if you start to feel better. Hydrate and humidify Drink enough water to keep your pee (urine) pale yellow. Use a cool mist humidifier to keep the humidity level in your home above 50%. Breathe in steam for 10 15 minutes, 3 4 times a day, or as told by your doctor. You can do this in the bathroom while a hot shower is running. Try not to spend time in cool or dry air. Rest Rest as much as you can. Sleep with your head raised (elevated). Make sure you get enough sleep each night. General instructions Put a warm, moist washcloth on your face 3 4 times a day, or as often as told by your doctor. This will help with discomfort. Wash your hands often with soap and water. If there is no soap and water, use hand emergency services director. Do not smoke. Avoid being around people who are smoking (secondhand smoke). Keep all follow-up visits as told by your doctor. This is important. Contact a doctor if: You have a fever. Your symptoms get worse. Your symptoms do not get better within 10 days. Get help right away if: You have a very bad headache. You cannot stop throwing up (vomiting). You have very bad pain or swelling around your face or eyes. You have trouble seeing. You feel confused. Your neck is stiff. You have trouble breathing. Summary Sinusitis is swelling of your sinuses. Sinuses are hollow spaces in the bones around your face. This condition is caused by tissues in your nose that become inflamed or swollen. This traps germs.These can lead to infection. If you were prescribed an antibiotic medicine, take it as told by your doctor. Do not stop taking it even if you start to feel better. Keep all follow-up visits as told by your doctor. This is important. This information is not intended to replace advice given to you by your health care provider. Make sure you discuss any questions you have with your health care provider. Document Released: 10/31/2008 Document Revised: 10/15/2018 Document Reviewed: 10/15/2018 [employer] Patient Education 2020 [employer]. 12/29/2021 21:35:07 Pharyngitis, Bbpq-yk-Opew Pharyngitis Pharyngitis is a sore throat (pharynx). This is when there is redness, pain, and swelling in your throat. Most of the time, this condition gets better on its own. In some cases, you may need medicine. Follow these instructions at home: Take lora-ezm-seqlyec and prescription medicines only as told by your doctor. ?If you were prescribed an antibiotic medicine, take it as told by your doctor. Do not stop taking the antibiotic even if you start to feel better. ?Do not give children aspirin. Aspirin has been linked to Irene syndrome. Drink enough water and fluids to keep your pee (urine) clear or pale yellow. Get a lot of rest. Rinse your mouth (gargle) with a salt-water mixture 3 4 times a day or as needed. To make a salt-water mixture, completely dissolve -1 tsp of salt in 1 cup of warm water. If your doctor approves, you may use throat lozenges or sprays to soothe your throat. Contact a doctor if: You have large, tender lumps in your neck. You have a rash. You cough up green, yellow-brown, or bloody spit. Get help right away if: You have a stiff neck. You drool or cannot swallow liquids. You cannot drink or take medicines without throwing up. You have very bad pain that does not go away with medicine. You have problems breathing, and it is not from a stuffy nose. You have new pain and swelling in your knees, ankles, wrists, or elbows. Summary Pharyngitis is a sore throat (pharynx). This is when there is redness, pain, and swelling in your throat. If you were prescribed an antibiotic medicine, take it as told by your doctor. Do not stop taking the antibiotic even if you start to feel better. Most of the time, pharyngitis gets better on its own. Sometimes, you may need medicine. This information is not intended to replace advice given to you by your health care provider. Make sure you discuss any questions you have with your health care provider. Document Released: 10/31/2008 Document Revised: 04/27/2018 Document Reviewed: 06/20/2017 [employer] Patient Education [employer]. Follow Up Care 12/29/2021 20:07:17 With:Call for test results Address:Unknown When: Unknown With:ALISHA SELLERS Address: [address] [place] [id number] Business (1) When:01/01/2022 21:34:23 only if needed [facility]08-03-2022 Evaluation + Plan noteExtracted from: Title:ED Note Author:Bernabe Eller MD Date: 2 1. Acute sinusitis (J01.90: Acute sinusitis, unspecified) 2. Acute pharyngitis (J02.9: Acute pharyngitis, unspecified) Orders: azithromycin, 250 mg, Oral, As Directed, # 6 tab(s), Refills(s) 0, Pharmacy: [facility] #[id number], 155, cm, 12/29/21 20:14:00 EDT, Height/Length Dosing, 49, kg, 12/29/21 20:14:00 EDT, Weight Dosing guaifenesin-pseudoephedrine, 1 tab(s), Oral, q12hr for 7 day(s), 14 tab(s), Refill(s) 0, [facility] #[id number], 155, cm, 12/29/21 20:14:00 EDT, Height/Length Dosing, 49, kg, 12/29/21 20:14:00 EDT, Weight Dosing Rapid COVID Antigen ([facility]) Rapid Strep w/rfx Diagnostic Tests Pending * Group A Strep by PCR 12/29/21 [facility]06-21-2022 NotePROCEDURE: XR FOOT RT MIN 3 VIEWS COMPARISON: None. HISTORY: Pain in right foot FINDINGS: BONES:No acute fracture or dislocation. Mild hallux valgus. Mild osteoarthropathy of the first metatarsal-phalangeal joint SOFT TISSUES:Negative. No visible soft tissue swelling. EFFUSION:None visible. OTHER: Negative. IMPRESSION: No acute abnormality Electronically authenticated by: FILIBERTO CHASE Date: 2021-11-16 21:28[facility]06-12-2022 Hospital Discharge instructions Patient Education 11/07/2021 15:26:07 Dysuria Dysuria Dysuria is pain or discomfort while urinating. The pain or discomfort may be felt in the part of your body that drains urine from the bladder (urethra) or in the surrounding tissue of the genitals. The pain may also be felt in the groin area, lower abdomen, or lower back. You may have to urinate frequently or have the sudden feeling that you have to urinate (urgency). Dysuria can affect both men and women, but it is more common in women. Dysuria can be caused by many different things, including: Urinary tract infection. Kidney stones or bladder stones. Certain sexually transmitted infections (STIs), such as chlamydia. Dehydration. Inflammation of the tissues of the vagina. Use of certain medicines. Use of certain soaps or scented products that cause irritation. Follow these instructions at home: General instructions Watch your condition for any changes. Urinate often. Avoid holding urine for long periods of time. After a bowel movement or urination, women should cleanse from front to back, using each tissue only once. Urinate after sexual intercourse. Keep all follow-up visits as told by your health care provider. This is important. If you had any tests done to find the cause of dysuria, it is up to you to get your test results. Ask your health care provider, or the department that is doing the test, when your results will be ready. Eating and drinking Drink enough fluid to keep your urine pale yellow. Avoid caffeine, tea, and alcohol. They can irritate the bladder and make dysuria worse. In men, alcohol may irritate the prostate. Medicines Take ucsj-olx-nycwpsl and prescription medicines only as told by your health care provider. If you were prescribed an antibiotic medicine, take it as told by your health care provider. Do notstop taking the antibiotic even if you start to feel better. Contact a health care provider if: You have a fever. You develop pain in your back or sides. You have nausea or vomiting. You have blood in your urine. You are not urinating as often as you usually do. Get help right away if: Your pain is severe and not relieved with medicines. You cannot eat or drink without vomiting. You are confused. You have a rapid heartbeat while at rest. You have shaking or chills. You feel extremely weak. Summary Dysuria is pain or discomfort while urinating. Many different conditions can lead to dysuria. If you have dysuria, you may have to urinate frequently or have the sudden feeling that you have tourinate (urgency). Watch your condition for any changes. Keep all follow-up visits as told by your health care provider. Make sure that you urinate often and drink enough fluid to keep your urine pale yellow. This information is not intended to replace advice given to you by your health care provider. Make sure you discuss any questions you have with your health care provider. Document Released: 02/10/2005 Document Revised: 04/27/2018 Document Reviewed: 03/01/2018 [employer] Patient Education [employer] Follow Up Care 11/07/2021 14:04:03 With:VERITO OSBORNE, CASS BRITO Address: [address] [place] [address]- When: Unknown [facility] 06-12-2022 Evaluation + Plan note Diagnostic Tests Pending * Chlamydia/Gonococcus, JACEY 11/07/21 * Urine Culture 11/07/21 * Vaginitis/Vaginosis, DNA Probe [facility] No data available for this section [facility] Evalumthsv noteNo InformationNort BAC ON TRAC Other Evaluation noteNo assessment information available [facility] Work Phone: Evaluation note* Diagnosis Onset Date Resolution Status Acute hemorrhoid acute Anxiety acute Bunion of great toe acute [facility] Work Phone: History general Narrative - Reported* Type Description Date Medical History Internal hemorrhoid Medical History Bacterial conjunctivitis of left eye Medical History Heart rate fast Medical History Attention deficit Medical History Anxiety, generalized Medical History Insomnia, persistent Medical History Osteoarthritis of cervical spine determined by x-ray Medical History Acute depression Medical History Foot pain, right Medical History Hallux valgus of right foot Medical History Toe pain, right Medical History Bacterial sinusitis Medical History Nicotine dependence, cigarettes, uncomplicated Medical History Vaginal candidiasis Surgical History hysterectomy 2015 Hospitalization History see surgical history Hospitalization History [facility] Other Hospital Discharge instructions No data available for this section [facility] No data available for this section [facility] Summary Purpose Family History No Family History Records Found Relationship Condition Age at Onset Recorded Date/T edel father Hypercholesterolemia Unknown Heart disease Unknown Not Specified Family history of mental disorder Unknow n Hypertension Unknown Advance Directives No Advanced Directives Records Found Advance Directive Response Recorded Date/ Time Advance Directives No March 27, 2017 2:17pm Chief Complaint and Reason for Visit Chief Complaint Z12.31 Chief Complaint Amb Documentation medication check Chief Complaint Amb Documentation medication check [facility] Reason for Visit Acute hemorrhoid Anxiety Bunion of great toe Additional Source Comments INFORMATION SOURCE (unrecogn ized section and content) DATE CREATED AUTHOR 07/09/2021 [facility] DATE CREATED AUTHOR AUTHOR'S ORGANIZ ATION 06/16/2022 [facility] DATE CREATED AUTHOR AUTHOR'S ORGANIZ ATION 07/02/2022 [facility] DATE CREATED AUTHOR AUTHOR'S ORGANIZ ATION 08/18/2023 [facility] EPIC DATE CREATED AUTHOR AUTHOR'S ORGANIZ ATION 10/08/2023 [facility] Care Team (unrecognized sect ion and content) Team Status: Active Member Role Status Dates Alisha Sellers MD Primary Care Provider Active Team Status: Active Member Role Status Dates Alisha Sellers MD Primary Care Provider Active Start: July 20, 2023 WOOD Nogueira Attending Provider Active Start : July 20, 2023 Team Status: Active Member Role Status Dates Alisha Sellers MD Primary Care Provide r, Attending Provider Active Start: September 07, 2023 Team Status: Inactive Member Role Status Dates Alisha Sellers MD Primary Care Provide r, Attending Provider Active Start: September 12, 2023 End: September 12, 2023 Team Status: Inactive Member Role Status Dates Alisha Sellers MD Primary Care Provider Active Hannah Luu DO Attending Provider Active Team Status: Inactive Member Role Status Dates Alisha Sellers MD Primary Care Provider Active Start: October 04, 2023 End: October 04, 2023 Natalia Cedillo APRN Attending Provider Active Start: October 04, 2023 End: October 04, 2023 REASON FOR VISIT (unrecogniz ed section and content) [facility]labsprescription re fillrefillrefillRefill Goals (unrecognized section and content) Goals may be documented in a n alternate section FOR RECORDS PERTAINING TO PATIENTS WHO ARE OR HAVE BEEN ENROLLED IN A CHEMICAL DEPENDENCY/SUBSTANCEABUSE PROGRAM, SOME INFORMATION MAY BE OMITTED. This clinical summary was aggregated from multiple sources. Caution should be exercised in using it in the provision of clinical care. This summary normalizes information from multiple sources, and as a consequence, information in this document may materially change the coding, format and clinical context of patient data. In addition, data may be omitted in some cases. CLINICAL DECISIONS SHOULD BE BASED ON THE PRIMARY CLINICAL RECORDS. [facility]. provides no warranty or guarantee of the accuracy or completeness of information in this document.
== END 2023-10-18 09:27 | disposition home or self-care (01) ==
LOC: EC 09:26
PROVIDERS: PCP Family Medicine; Visit Provider Podiatrist Foot & Ankle Surgery
DX: M79.671 Pain in right foot (principal); Z98.890 Other specified postprocedural states
CPT/HCPCS: 73630

== ENCOUNTER 2023-11-28 08:52 | Outpatient (OUT) | payer OTHER, SELFPAY ==
--- NOTE | 2023-11-28 | XR_ITS ---
The [address] [address] Patient Name: WYATT GONZALEZ MRN: [id number] date: 1975 Sex: F Assigned Patient Location: Current Patient Location: Accession/Order Number: [id number] Exam Date: 11/28/2023 08:53 Report Date: 11/29/2023 09:53 At the request of: LULU FARIAS Procedure: XR foot RT min 3V PROCEDURE: XR foot RT min 3V HISTORY: RIGHT FOOT PAIN COMPARISON: XR foot right 10/18/2023 FINDINGS: BONES:Prior mechanical fusion of the first metatarsophalangeal joint via dorsal plate and screws. Prior resection of the head of the second proximal phalanx. No evidence of hardware fracture or loosening. No bone fracture dislocation. SOFT TISSUES:No visible soft tissue swelling. EFFUSION:None visible. OTHER: Negative. XR/XR foot RT min 3V IMPRESSION: 1. Stable surgical changes without evidence of hardware failure or change in alignment. Electronically authenticated by: MODESTA DIALLO Date: 11/29/2023 09:53
== END 2023-11-28 08:53 | disposition home or self-care (01) ==
LOC: EC 08:52
PROVIDERS: PCP Family Medicine; Visit Provider Podiatrist Foot & Ankle Surgery
DX: M79.671 Pain in right foot (principal); Z98.890 Other specified postprocedural states
CPT/HCPCS: 73630

== ENCOUNTER 2024-02-27 08:45 | Outpatient (OUT) | payer OTHER, SELFPAY ==
--- NOTE | 2024-02-27 | XR_ITS ---
The [address] [address] Patient Name: WYATT GONZALEZ MRN: [id number] date: 1975 Sex: F Assigned Patient Location: Current Patient Location: Accession/Order Number: [id number] Exam Date: 02/27/2024 08:46 Report Date: 02/28/2024 07:27 At the request of: LULU FARIAS Procedure: XR foot RT min 3V PROCEDURE: XR foot RT min 3V COMPARISON: 11/28/2023 HISTORY: RIGHT FOOT PAIN FINDINGS: BONES:Stable fusion the first metatarsal-phalangeal joint with a dorsal plate and screws. No acute fracture or dislocation. Stable remote resection head of the second proximal phalanx SOFT TISSUES:Negative. No visible soft tissue swelling. EFFUSION:None visible. OTHER: Negative. XR/XR foot RT min 3V IMPRESSION: Stable postsurgical changes Electronically authenticated by: FILIBERTO CHASE Date: 02/28/2024 07:27
--- OUTSIDE RECORDS SUMMARY | 2024-02-27 09:03 | XMS_ITS | CCD ---
Author Organization [facility] Care Team Providers Care Fact Checker Name Role Phone ALISHA SELLERS Primary Care Physician [phone] VERITO, DR ALISHA Carpio Admitting Unavailable VERITO, DR ALISHA Carpio Attending Unavailable SELLERS, DR ALISHA Carpio Primary Care Unavailable SELLERS, DR ALISHA Carpio Consulting Unavailable YOUSUF WOLFF Admitting Unavailable YOUSUF WOLFF Attending Unavailable VERITO, DR ALISHA Carpio Primary Care Unavailable BRAZIL, DR FILIBERTO Prince Consulting Unavailable YOUSUF WOLFF Consulting Unavailable VERITO, DR ALISHA Carpio Admitting Unavailable SELLERS, DR ALISHA Carpio Attending Unavailable VERITO, DR [...] Unavailable MD Alisha Sellers Primary Care Provider [phone] KIRAN Cedillo Attending Provider Self, Referral Attending Provider Unavailable DO Hannah Luu Referring Provider Natalia Cedillo Admitting Unavailable Natalia Cedillo Attending Unavailable Alisha Sellers Primary Care Unavailable Natalia Cedillo Admitting Unavailable Natalia Cedillo Attending Unavailable Alisha Sellers Primary Care Unavailable Hannah Luu Referring Unavailable Alisha Sellers Primary Care Unavailable Self, Referral Admitting Unavailable Self, Referral Attending Unavailable Allergies Allergy Classification Reported Allergen(s) Allergy Type Date of Onset Reaction(s) Facility (2 sources) patient allergy list reviewed by nurse or physicia Propensity to adverse reactions 4 Comment:Done [facility] Other (2 sources) NONE KNOWN ALLERGIES Propensity to adverse reactions 4 Unknown [facility] Other (2 sources) Allergies Reconciled Propensity to adverse reactions Unknown [facility] Other Medications Current Medications Medication Drug Class(es) Dates Sig (Normalized) Sig (Original) acetaminophen 325 mg / HYDROcodone bitartrate 5 mg oral tablet (3 sources) Opioid Agonist Start: 11-03-2019 Logan 325 mg-5 mg oral tablet 1 tab(s), Oral, q4hr for pain, 12 tab(s), Refill(s) 0 Start Date: 11/03/19 Status: Ordered alendronic acid 70 mg oral tablet (4 sources) Bisphosphonate Start: 09-12-2023 take 70 mg [...] Directed, # 6 tab(s), Refills(s) 0, [facility]: [id number], 155, cm, 12/29/21 20:14:00 EDT, Height/Length Dosing, 49, kg, 12/29/21 20:14:00 EDT, Weight Dosing Start Date: 12/29/21 Status: Ordered brompheniramine maleate 0.4 mg/ml / dextromethorphan hydrobromide 2 mg/ml / pseudoephedrine hydrochloride 6 mg/ml oral solution (3 sources) alpha-Adrenergic Agonist, Uncompetitive M-ach[place]ja-[place]-aspartat e Receptor Antagonist, Sigma-1 Agonist Start: 03-15-2019 take 10 mL by mouth four times daily Bromfed DM oral syrup 10 mL, Oral, QID for cold symptoms, 200 mL, Refill(s) 0, [facility] #[id number] Start Date: 03/15/19 Status: Ordered buPROPion hydrochloride 75 mg oral tablet (9 sources) Aminoketone Start: 11-07-2021 buPROPion 75 mg Tab Refills(s) 0 Start Date: 11/07/21 Status: Ordered busPIRone hydrochloride 5 mg oral tablet (4 sources) Start: 09-12-2023 take 5 mg by mouth twice daily Buspirone Active 5 MG PO Twice daily September 12, 2023 12:00am estrogens, conjugated (halfway) 0.625 mg oral tablet (16 sources) Estrogen Start: 09-11-2023 take 1 tablet by mouth once daily Conjugated Estrogens (Premarin) 0.625 mg tablet Active 1 TAB PO Daily September 11, 2023 12:00am [employer] tablet Orally ONCE A DAY; Note: Source Status: Taking; Provider: Verito Brito ( ) Start: 03-15-2019 Premarin 0.625 mg Tab Refills(s) 0 Start Date: 11/07/21 Status: Ordered hydrocortisone 25 mg/ml topical cream (15 sources) Corticosteroid Start: 11-09-2023 Hydrocortisone Active 0 .ROUTE .COMPLEX 28.35 November 09, 2023 2:58pm APPLY ONCE EXTERNALLY ONCE A DAY Start: 09-11-2023 End: 11-09-2023 Hydrocortisone Discontinued 1 APPLIC TOPICAL Daily September 12, 2023 11:05am November 09, 2023 2:58pm [employer]Text[employer] application Externally Once a day; Note: [...] # 14 tab(s), Refills(s) 0, Pharmacy: [facility], 156, cm, 11/07/21 14:59:00 EDT, Height/Length Dosing, 49.8, kg, 11/07/21 14:59:00 EDT, Weight Dosing Start Date: 11/07/21 Stop Date: 11/14/21 Status: Ordered Mucinex D Max Strength oral tablet, extended release (1 source) Start: 12-29-2021 End: 01-05-2022 Mucinex D Max Strength oral tablet, extended release 1 tab(s), Oral, q12hr for 7 day(s), 14 tab(s), Refill(s) 0, [facility][id number], 155, cm, 12/29/21 20:14:00 EDT, Height/Length Dosing, 49, kg, 12/29/21 20:14:00 EDT, Weight Dosing Start Date: 12/29/21 Stop Date: 01/05/22 Status: Ordered SUMAtriptan 50 mg oral tablet (4 sources) Serotonin-1b and Serotonin-1d Receptor Agonist Start: 09-11-2023 take 1 tablet by mouth twice daily as needed, then take 1 tablet by mouth twice daily as needed Sumatriptan Succinate Active 1 TAB PO Twice daily September 11, 2023 12:00am [employer] tablet at least 2 hours between doses as needed Orally Twice a day; Note: Source Status: Start; Refills: 2; Provider: [facility] Carpio Ventolin HFA 90 mcg/inh Aerosol (3 sources) Start: 03-15-2019 take 2 puff(s) by inhalation once for wheezing Ventolin HFA 90 mcg/inh Aerosol 2 puff(s), Inhalation, Once for wheezing, 18 gram, Refill(s) 0, [facility] #[id number] Start Date: 03/15/19 Status: Ordered Completed/Discontinued Medications Medication Drug Class(es) Dates Sig (Normalized) Sig (Original) cefuroxime 500 mg oral tablet (6 sources) Cephalosporin Antibacterial Start: 03-23-2016 take 1 tablet by mouth twice daily Ceftin 500 MG 1 tablet Orally Twice a day for 10 day(s) Feb, Not-Taking clonazePAM 0.5 mg oral tablet (20 sources) Benzodiazepine Start: 10-20-2023 End: 11-21-2023 take 0.5 mg by mouth twice daily Clonazepam Discontinued 0.5 MG PO Twice daily 50 November 21, 2023 10:32am November 21, 2023 10:34am Start: 07-20-2023 End: 10-20-2023 take 1 mg by mouth once daily Clonazepam Discontinued 1 MG PO Daily September 19, 2023 2:56pm October 20, 2023 11:33am Start: 03-24-2023 take 1 tablet by kevin th once daily clonazePAM 1 MG TAKE 1 TABLET BY MOUTH EVERY DAY for Feb, Active Start: 12-26-2022 clonazePAM 1 M G TAKE 1 TABLET BY MOUTH EVERY DAY FOR 30 DAYS Orally Once a day for 30 days Nov, Active Start: 09-26-2022 clonazePAM 1 M G TAKE 1 TABLET BY MOUTH EVERY DAY FOR 30 DAYS for 30 September, Active Start: 06-28-2022 take 1 tablet by kevin th every twenty-four hours KlonoPIN 1 MG 1 tablet Orally Once a day for 30 days May, Active Start: 03-15-2019 clonazepam 0.5 mg oral tablet Refills(s) 0 Start Date: 03/15/19 Status: Ordered fluconazole 150 mg oral tablet (12 sources) [...] (acquired), right foot] Chronic Acquired foot deformities (6 sources) Bunion; Translations: [Bunion of unspecified foot] [...] Dysuria; Translations: [Dysuria] Onset: 11-07-2021 Episodic Hemorrhoids (14 sources) Internal hemorrhoids; Translations: [Other hemorrhoids] 09-12-2023 [...] (BMI) 19.9 or less, adult] Episodic Other screening for suspected conditions (not mental disorders or infectious disease) (1 source) Encounter for screening mammogram for malignant neoplasm of breast; Translations: [Encounter for screening mammogram for malignant neoplasm of breast] Onset: 12-09-2023 Episodic Other upper respiratory infections (8 sources) [...] [Contact with and (suspected) exposure to COVID-19] Past or Other Problems Problem Classification Problem [...] Test Name Value Interpretation Reference Range Facility MM screening mammo BI w/CADo n 12-11-2023 MM screening mammo BI w/CAD [facility] [place] [id number] Mammography Report Signed Patient: Wyatt Harrington MR#: [id number] : 1975 Acct:[id number] Age/Sex: 48 / F ADM Date: 12/09/23 Loc: [place] Room: Type: [facility] Attending Dr: Referral Self Copies to: DO Alisha Newsome MD SELF,REFERRAL Ordering Provider: SELF,REFERRAL Date of Service: 12/09/23 MM/MM screening mammo BI w/CAD: SCREENING CLINICAL DATA: Screening for malignancy. BILATERAL SCREENING MAMMOGRAMS - FULL FIELD DIGITAL WITH TOMOSYNTHESIS AND CAD Tomosynthesis craniocaudal and mediolateral oblique views of both breasts were obtained using low- dose digital technique. Comparison is made to prior studies from 12/03/2022, 11/13/2021, 11/07/2020, and 11/02/2019. This examination was reviewed with the aid of CAD. There are scattered fibroglandular densities. Implants are redemonstrated bilaterally. The implants are intact and are unchanged when compared to the prior exam. There are a few punctate benign-appearing calcifications. There are no dominant masses, typically malignant calcifications or architectural distortion. There has been no significant interval change. MM/MM screening mammo BI w/CAD IMPRESSION: NO MAMMOGRAPHIC EVIDENCE OF MALIGNANCY. ROUTINE FOLLOW-UP IS RECOMMENDED IN ONE YEAR. RESULT CODE: 2 Benign Findings(s) DENSITY CODE: 2 (approximately 25-50% glandular) FOLLOW UP: 1YR The false-negative rate of mammography is approximately 10-percent. Management of a palpable abnormality must be based on clinical grounds. Patient was entered into a reminder system with a target due date for the next mammogram. Impression dictated by: Dileep Joel M.D.12/11/2023 3:06 PM Dictation Location: [facility] Transcribed By: SHELLEY 12/11/23 1506 Dictated By: Dileep Joel II, MD 12/11/23 1502 Signed By: 12/11/23 1506 Normal [facility] Alanine aminotransferase [En zymatic activity/volume] in Serum or PlasmaOrdered By: Natalia Cedillo on 10-04-2023 ALT [Catalytic activity/Vol] 18 U/L Normal [facility] Comment on above: Performed By: #### N ICOTINE QUAL #### [facility] , #### TSH3, CBCNO, CMP wRFX A1C, LIPID #### [facility] [address] Albumin [Mass/volume] in Ser um or Plasma by Bromocresol green (BCG) dye binding methoOrdered By: Natalia Cedillo on 10-04-2023 Albumin BCG dye [Mass/Vol] 4.8 g/dL 3.5-5.7 [facility] Alkaline phosphatase [Enzyma tic activity/volume] in Serum or PlasmaOrdered By: Natalia Cedillo on 10-04-2023 ALP [Catalytic activity/Vol] 48 U/L Normal 34-104 [facility] Comment on above: Performed By: #### N ICOTINE QUAL #### [facility] , #### TSH3, CBCNO, CMP wRFX A1C, LIPID #### [facility] [address] Aspartate aminotransferase [ Enzymatic activity/volume] in Serum or PlasmaOrdered By: Natalia Cedillo on 10-04-2023 AST [Catalytic activity/Vol] 20 U/L Normal 13-39 [facility] Comment on above: Performed By: #### N ICOTINE QUAL #### [facility] , #### TSH3, CBCNO, CMP wRFX A1C, LIPID #### [facility] [address] [place] [address] Bilirubin.total [Mass/volume ] in Serum or PlasmaOrdered By: Natalia Cedillo on 10-04-2023 Bilirubin [Mass/Vol] 0.6 mg/dL Normal 0.3-1.[address] [facility] Comment on above: Performed By: #### N ICOTINE QUAL #### [facility] , #### TSH3, CBCNO, CMP wRFX A1C, LIPID #### [facility] [address] CMP with reflex to A1Con Albumin [Mass/Vol] 4.8 g/dL Normal 3.5-5.7 [facility] Comment on above: Performed By: #### N ICOTINE QUAL #### [facility] , #### TSH3, CBCNO, CMP wRFX A1C, LIPID #### [facility] [address] [place] [address] [place] GFR/1.73 sq M.predicted MDRD (S/P/Bld) [Vol rate/Area] mL/min/{1.73_m2} Normal [facility] Comment on above: Performed By: #### N ICOTINE QUAL #### [facility] , #### TSH3, CBCNO, CMP wRFX A1C, LIPID #### [facility] [address] [place] [id number] [place] Calcium [Mass/volume] in Ser um or PlasmaOrdered By: Natalia Cedillo on 10-04-2023 Calcium [Mass/Vol] 10.0 mg/dL Normal 8.6-10.3 [facility] Comment on above: Performed By: #### N ICOTINE QUAL #### [facility] , #### TSH3, CBCNO, CMP wRFX A1C, LIPID #### [facility] [address] [place] [address] [place] Carbon dioxide, total [Moles /volume] in Serum or PlasmaOrdered By: Natalia Cedillo on 10-04-2023 CO2 [Moles/Vol] 29.6 mmol/L Normal 21.0-31.0 [facility] Comment on above: Performed By: #### N ICOTINE QUAL #### [facility] , #### TSH3, CBCNO, CMP wRFX A1C, LIPID #### [facility] [address] [place] [id number] [place] Chloride [Moles/volume] in S nahed or PlasmaOrdered By: Natalia Cedillo on 10-04-2023 Chloride [Moles/Vol] 103 mmol/L Normal 98-[address] [facility] Comment on above: Performed By: #### N ICOTINE QUAL #### [facility] , #### TSH3, CBCNO, CMP wRFX A1C, LIPID #### [facility] [address] [place] [address] [place] Cholesterol [Mass/volume] in Serum or PlasmaOrdered By: Natalia Cedillo on 10-04-2023 Cholesterol [Mass/Vol] 252 mg/dL High 140-200 [facility] Comment on above: Chol less than 200 m g/dl low riskChol 201-239 mg/dl borderline riskChol 240 mg/dl and greater high risk Result Comment: Chol less than 200 mg/dl low risk Chol 201-239 mg/dl borderline risk Chol 240 mg/dl and greater high risk Performed By: #### N ICOTINE QUAL #### [facility] , #### TSH3, CBCNO, CMP wRFX A1C, LIPID #### [facility] [address] Cholesterol in LDL Calc [Mas s/Vol]Ordered By: Natalia Cedillo on 10-04-2023 Cholesterol in LDL [Mass/Vol] 133 mg/dL High 0-100 [facility] Comment on above: LDL ATP III CLASSIFI CATIONLDL less than 100 mg/dL OptimalLDL 100-129 mg/dL Near or above optimalLDL 130-159 mg/dL Borderline highLDL 160-189 mg/dL HighLDL greater than 189 mg/dL Very high Cholesterol in VLDL Calc [Ma ss/Vol]Ordered By: Natalia Cedillo on 10-04-2023 Cholesterol in VLDL [Mass/Vol] 30 mg/dL [facility] Creatinine [Mass/volume] in Serum or PlasmaOrdered By: Natalia Cedillo on 10-04-2023 Creatinine [Mass/Vol] 0.86 mg/dL Normal 0.60-1.20 [facility] Comment on above: Performed By: #### N ICOTINE QUAL #### [facility] , #### TSH3, CBCNO, CMP wRFX A1C, LIPID #### [facility] [address] [place] [address] [place] Erythrocyte distribution wid th [Ratio] by Automated countOrdered By: Natalia Cedillo on 10-04-2023 Erythrocyte distribution width (RBC) [Ratio] 12.8 % Normal 11.9-15.3 [facility] Comment on above: Performed By: #### N ICOTINE QUAL #### [facility] , #### TSH3, CBCNO, CMP wRFX A1C, LIPID #### [facility] [address] [place] [address] [place] Erythrocytes [#/volume] in B lood by Automated countOrdered By: Natalia Cedillo on 10-04-2023 RBC (Bld) [#/Vol] 4.56 10*6/uL Normal 3.60-5.00 [facility] Comment on above: Performed By: #### N ICOTINE QUAL #### [facility] , #### TSH3, CBCNO, CMP wRFX A1C, LIPID #### [facility] [address] [place] [address] [place] Glucose [Mass/volume] in Ser um or PlasmaOrdered By: Natalia Cedillo on 10-04-2023 Glucose [Mass/Vol] 85 mg/dL Normal 70-100 [facility] Comment on above: Performed By: #### N ICOTINE QUAL #### [facility] , #### TSH3, CBCNO, CMP wRFX A1C, LIPID #### [facility] [address] [place] [address] [place] Hematocrit [Volume Fraction] of Blood by Automated countOrdered By: Natalia Cedillo on 10-04-2023 Hematocrit (Bld) [Volume fraction] 39.5 % Normal 34.0-46.4 [facility] Comment on above: Performed By: #### N ICOTINE QUAL #### [facility] , #### TSH3, CBCNO, CMP wRFX A1C, LIPID #### [facility] [address] [place] [address] [place] Hemoglobin [Mass/volume] in BloodOrdered By: Natalia Cedillo on 10-04-2023 Hemoglobin (Bld) [Mass/Vol] 13.2 g/dL Normal 11.8-15.4 [facility] Comment on above: Performed By: #### N ICOTINE QUAL #### [facility] , #### TSH3, CBCNO, CMP wRFX A1C, LIPID #### [facility] [address] Hemogram CBC Without Diffon 10-04-2023 Mean Corpuscular HGB Conc 33.4 g/dL Normal 32.0-35.0 [facility] Comment on above: Performed By: #### N ICOTINE QUAL #### [facility] , #### TSH3, CBCNO, CMP wRFX A1C, LIPID #### [facility] [address] WBC (Bld) [#/Vol] 5.8 10*3/uL Normal 3.8-11.6 [facility] Comment on above: Performed By: #### N ICOTINE QUAL #### [facility] , #### TSH3, CBCNO, CMP wRFX A1C, LIPID #### [facility] [address] [place] [address] Leukocytes [#/volume] correc kim for nucleated erythrocytes in Blood by Automated counOrdered By: Natalia Cedillo on 10-04-2023 WBC corrected for nucl RBC Auto (Bld) [#/Vol] 5.8 10*3/uL 3.8-11.6 [facility] Lipid Panelon 10-04-2023 LDL Cholesterol,Calculated 133 mg/dL High 0-100 [facility] Comment on above: Result Comment: LDL ATP III CLASSIFICATION LDL less than 100 mg/dL Optimal LDL 100-129 mg/dL Near or above optimal LDL 130-159 mg/dL Borderline high LDL 160-189 mg/dL High LDL greater than 189 mg/dL Very high Performed By: #### N ICOTINE QUAL #### [facility] , #### TSH3, CBCNO, CMP wRFX A1C, LIPID #### [facility] [address] Triglyceride w/Reflex 151 mg/dL High 0-149 [facility] Comment on above: Result Comment: TRIG ATP III CLASSIFICATION TRIG less than 150 mg/dL Normal TRIG 150-199 mg/dL Borderline high TRIG 200-500 mg/dL High TRIG greater than 500 mg/dL Very high Standard traceable to the Center for Disease Conrtrol and Prevention (CDC) test method. Performed By: #### N ICOTINE QUAL #### [facility] , #### TSH3, CBCNO, CMP wRFX A1C, LIPID #### [address] VLDL CHOLESTEROL 30 mg/dL Normal [facility] Comment on above: Performed By: #### N ICOTINE QUAL #### [facility] , #### TSH3, CBCNO, CMP wRFX A1C, LIPID #### [address] MCH [Entitic mass] by Automa kim countOrdered By: Natalia Cedillo on 10-04-2023 MCH (RBC) [Entitic mass] 29.0 pg Normal 24.7-34.3 [facility] Comment on above: Performed By: #### N ICOTINE QUAL #### [facility] , #### TSH3, CBCNO, CMP wRFX A1C, LIPID #### [address] MCHC Auto (RBC) [Mass/Vol]Or dered By: Natalia Cedillo on 10-04-2023 MCHC (RBC) [Mass/Vol] 33.4 g/dL 32.0-35.0 [facility] MCV [Entitic volume] by Auto mated countOrdered By: Natalia Cedillo on 10-04-2023 MCV (RBC) [Entitic vol] 86.7 fL Normal 80-100 [facility] Comment on above: Performed By: #### N ICOTINE QUAL #### [facility] , #### TSH3, CBCNO, CMP wRFX A1C, LIPID #### [address] Nicotine Metabolite, QualOrd ered By: Natalia Cedillo on 10-04-2023 Nicotine Metabolite P Normal Cutoff=25 [facility] Comment on above: Verified by repeat analysisPerformed at: [address] [id number] Director: Usha Linton MD, Phone: [phone] Result Comment: Ve rified by repeat analysis Performed at: [address] [id number] Med Dir: Usha Linton MD, Phone: [phone] PERFORMED BY: [place] [address] PATHOLOGIST OFFICE MAIL CLERK DHRUV PALMER M.D. Performed By: #### N ICOTINE QUAL #### [facility] , #### TSH3, CBCNO, CMP wRFX A1C, LIPID #### [facility] [address] [place] [address] No Panel InformationOrdered By: Natalia Cedillo on 10-04-2023 Estimated GFR (CKD-EPI) > 60.0 mL/Min [facility] Creatinine Clearance (Chem N/A [facility] Platelet mean volume [Entiti c volume] in Blood by Automated countOrdered By: Natalia Cedillo on 10-04-2023 Platelet mean volume (Bld) [Entitic vol] 9.8 fL Normal 6.3-10.7 [facility] Comment on above: Result Comment: PERF ORMED BY: [place] [address] PATHOLOGIST OFFICE MAIL CLERK DHRUV PALMER M.D. Performed By: #### N ICOTINE QUAL #### [facility] , #### TSH3, CBCNO, CMP wRFX A1C, LIPID #### [facility] [address] [place] [address] Platelets [#/volume] in Bloo d by Automated countOrdered By: Natalia Cedillo on 10-04-2023 Platelets (Bld) [#/Vol] 311 10*3/uL Normal 150-450 [facility] Comment on above: Performed By: #### N ICOTINE QUAL #### [facility] , #### TSH3, CBCNO, CMP wRFX A1C, LIPID #### [facility] [address] Potassium [Moles/volume] in Serum or PlasmaOrdered By: Natalia Cedillo on 10-04-2023 Potassium [Moles/Vol] 3.6 mmol/L Normal 3.5-5.1 [facility] Comment on above: Performed By: #### N ICOTINE QUAL #### [facility] , #### TSH3, CBCNO, CMP wRFX A1C, LIPID #### [address] Protein [Mass/volume] in Ser um or PlasmaOrdered By: Natalia Cedillo on 10-04-2023 Protein [Mass/Vol] 7.6 g/dL Normal 6.4-8.9 [facility] Comment on above: Performed By: #### N ICOTINE QUAL #### [facility] , #### TSH3, CBCNO, CMP wRFX A1C, LIPID #### [facility] [address] [place] [address] Serum globulin measurement b y calculation (mass/volume)Ordered By: Natalia Cedillo on 10-04-2023 Globulin (S) [Mass/Vol] 2.8 g/dL Normal [facility] Comment on above: Performed By: #### N ICOTINE QUAL #### [facility] , #### TSH3, CBCNO, CMP wRFX A1C, LIPID #### [facility] [address] [place] [address] Serum or plasma albumin/glob ulin mass ratioOrdered By: Natalia Cedillo on 10-04-2023 Albumin/Globulin [Mass ratio] 1.7 {ratio} Normal [facility] Comment on above: Performed By: #### N ICOTINE QUAL #### [facility] , #### TSH3, CBCNO, CMP wRFX A1C, LIPID #### [facility] [address] Serum or plasma anion gap de terminationOrdered By: Natalia Cedillo on 10-04-2023 Anion gap [Moles/Vol] 10.0 mmol/L Normal 6.0-15.0 [facility] Comment on above: Performed By: #### N ICOTINE QUAL #### [facility] , #### TSH3, CBCNO, CMP wRFX A1C, LIPID #### [address] Serum or plasma high density lipoprotein (HDL) cholesterol measurementOrdered By: Natalia Cedillo on 10-04-2023 Cholesterol in HDL [Mass/Vol] 89 mg/dL Normal 23-92 [facility] Comment on above: HDL CHOL ATP-III CLA SSIFICATION Cardiovascular RiskHDL > or equal to 60 mg/dL LOWHDL < 40 mg/dL HIGH Result Comment: HDL CHOL ATP-III CLASSIFICATION Cardiovascular Risk HDL > or equal to 60 mg/dL LOW HDL < 40 mg/dL HIGH Performed By: #### N ICOTINE QUAL #### [facility] , #### TSH3, CBCNO, CMP wRFX A1C, LIPID #### [facility] [address] [place] [address] Serum or plasma total choles terol/high density lipoprotein (HDL) cholesterol mass ratOrdered By: Natalia Cedillo on 10-04-2023 Cholesterol.total/Lauren sterol in HDL [Mass ratio] 2.8 {ratio} Normal <5.0 [facility] Comment on above: Performed By: #### N ICOTINE QUAL #### [facility] , #### TSH3, CBCNO, CMP wRFX A1C, LIPID #### [address] Sodium [Moles/volume] in Ser um or PlasmaOrdered By: Natalia Cedillo on 10-04-2023 Sodium [Moles/Vol] 139 mmol/L Normal 136-145 [facility] Comment on above: Performed By: #### N ICOTINE QUAL #### [facility] , #### TSH3, CBCNO, CMP wRFX A1C, LIPID #### [facility] [address] Thyrotropin [Units/volume] i n Serum or PlasmaOrdered By: Natalia Cedillo on 10-04-2023 TSH Qn 2.05 m[IU]/L Normal 0.45-5.33 [facility] Comment on above: Result Comment: PERF ORMED BY: [place] [address] PATHOLOGIST OFFICE MAIL CLERK DHRUV PALMER M.D. Performed By: #### N ICOTINE QUAL #### [facility] , #### TSH3, CBCNO, CMP wRFX A1C, LIPID #### [address] Triglyceride [Mass/volume] i n Serum or PlasmaOrdered By: Natalia Cedillo on 10-04-2023 Triglyceride [Mass/Vol] 151 mg/dL High 0-149 [facility] Comment on above: TRIG ATP III CLASSIF ICATIONTRIG less than 150 mg/dL NormalTRIG 150-199 mg/dL Borderline highTRIG 200-500 mg/dL High TRIG greater than 500 mg/dL Very highStandard traceable to the Center for Disease Conrtrol and Prevention (CDC) test method. Urea nitrogen [Mass/volume] in Serum or PlasmaOrdered By: Natalia Cedillo on 10-04-2023 Urea nitrogen [Mass/Vol] 12 mg/dL Normal 7-25 [facility] Comment on above: Performed By: #### N ICOTINE QUAL #### [facility] , #### TSH3, CBCNO, CMP wRFX A1C, LIPID #### [facility] [address] Basophils Auto (Bld) [#/Vol] on 09-07-2023 Basophils (Bld) [#/Vol] 0.0 10 3/uL 0.0-0.1 [facility] Basophils/100 WBC Auto (Bld) on 09-07-2023 Basophils/100 WBC (Bld) 0.6 % 0.2-2.0 [facility] Eosinophils/100 WBC Auto (Bl d)on 09-07-2023 Eosinophils/100 WBC (Bld) 3.6 % 0.9-7.0 [facility] Erythrocyte distribution wid th Auto (RBC) [Ratio]on 09-07-2023 Erythrocyte distribution width (RBC) [Ratio] 12.9 % 11.0-15.0 [facility] Hematocrit Auto (Bld) [Volum e fraction]on 09-07-2023 Hematocrit (Bld) [Volume fraction] 37.8 % 36.0-48.0 [facility] Hemoglobin [Mass/volume] in Bloodon 09-07-2023 Hemoglobin (Bld) [Mass/Vol] 12.1 g/dL 12.0-16.0 [facility] - Hematology and Cell countson 09-07-2023 Immature granulocytes/100 WBC (Bld) 0.3 % 0.0-0.5 [facility] Leukocytes [#/volume] correc kim for nucleated erythrocytes in Blood by Automated counon 09-07-2023 WBC corrected for nucl RBC Auto (Bld) [#/Vol] 7.2 10 3/uL 4.0-11.0 [facility] Lymphocytes Auto (Bld) [#/Vo l]on 09-07-2023 Lymphocytes (Bld) [#/Vol] 2.6 10 3/uL 1.2-3.8 [facility] Lymphocytes/100 WBC Auto (Bl d)on 09-07-2023 Lymphocytes/100 WBC (Bld) 36.0 % 20.5-60.0 [facility] MCH Auto (RBC) [Entitic mass ]on 09-07-2023 MCH (RBC) [Entitic mass] 29.1 pg 26.7-34.0 [facility] MCHC Auto (RBC) [Mass/Vol]on 09-07-2023 MCHC (RBC) [Mass/Vol] 32.0 g/dL 29.9-35.2 [facility] MCV Auto (RBC) [Entitic vol] on 09-07-2023 MCV (RBC) [Entitic vol] 90.9 fL 81.0-99.0 [facility] Monocytes Auto (Bld) [#/Vol] on 09-07-2023 Monocytes (Bld) [#/Vol] 0.5 10 3/uL 0.3-0.8 [facility] Monocytes/100 WBC Auto (Bld) on 09-07-2023 Monocytes/100 WBC (Bld) 7.4 % 1.7-12.0 [facility] Neutrophils Auto (Bld) [#/Vo l]on 09-07-2023 Neutrophils (Bld) [#/Vol] 3.7 10 3/uL 1.4-6.5 [facility] Neutrophils/100 WBC Auto (Bl d)on 09-07-2023 Neutrophils/100 WBC (Bld) 52.1 % 43.0-75.0 [facility] No Panel Informationon 09-06 Eosinophils # (Auto) 0.3 10 3/uL 0.0-0.7 [facility] Immature Granulocyte # (Auto) 0.02 10 3/uL 0.00-0.03 [facility] Platelet mean volume Auto (B ld) [Entitic vol]on 09-07-2023 Platelet mean volume (Bld) [Entitic vol] 10.3 fL 9.5-13.5 [facility] Platelets Auto (Bld) [#/Vol] on 09-07-2023 Platelets (Bld) [#/Vol] 222 10 3/uL 150-450 [facility] RBC Auto (Bld) [#/Vol]on RBC (Bld) [#/Vol] 4.16 10 6/uL 4.20-5.40 [facility] Hep Bs Abon 07-01-2022 HBV surface Ab Ql (S) Reactive Invalid Interpretation Code [facility] Comment on above: Result Comment: Non Reactive: Inconsistent with immunity, less than 10 mIU/mL Reactive: Consistent with immunity, greater than 9.9 mIU/mL Performed at: [facility] [address] [place], [place] [id number] PhD Priya Govea Performed By: #### 1 [id number] ####[address] [address] Measles/Mumps/Rubella Immuni tyon 07-01-2022 MeV IgG IA Qn (S) 54.9 A unit/mL Invalid Interpretation Code Immune >16.4 [facility] Comment on above: Result Comment: Nega tive <13.5 Equivocal 13.5 - 16.4 Positive >16.4 Presence of antibodies to Rubeola is presumptive evidence of immunity except when acute infection is suspected. Performed By: #### 1 [id number] ####[address] [address] MuV IgG IA Qn (S) 11.7 A unit/mL Invalid Interpretation Code Immune >10.9 [facility] Comment on above: Result Comment: Nega tive <9.0 Equivocal 9.0 - 10.9 Positive >10.9 A positive result generally indicates past exposure to Mumps virus or previous vaccination. Performed at: [facility] [address] [place] [address] [id number] PhD Priya Govea Performed By: #### 1 [id number] ####[address] [address] Rubella virus IgG Qn (S) 14.40 [IU]/mL Invalid Interpretation Code Immune >0.99 [facility] Comment on above: Result Comment: Non- immune <0.90 Equivocal 0.90 - 0.99 Immune >0.99 Performed By: #### 1 [id number], [id number] ####[address] [address] Quantiferon-TB Plus (Client Incubated)on 07-01-2022 Gamma interferon background IA Qn (Bld) 0.05 International_Unit/mL Invalid Interpretation Code [facility] Comment on above: Performed By: #### 1 [id number] ####[facility] [address] [place] [address] M. tuberculosis stim IFN-g by CD4+ CD8+ T-cells Qn (Bld) 0.04 International_Unit/mL Invalid Interpretation Code [facility] Comment on above: Performed By: #### 1 [id number], [id number], [id number], [id number] ####[address] [place] [address] M. tuberculosis stim IFN-g by CD4+ T-cells Qn (Bld) 0.04 International_Unit/mL Invalid Interpretation Code [facility] Comment on above: Performed By: #### 1 [id number], [id number] ####[facility] [address] [place] [address] M. tuberculosis stim IFN-g Ql (Bld) [Interp] Negative Invalid Interpretation Code Negative [facility] Comment on above: Result Comment: No r [...] interferon gamma. Chemiluminescence immunoassay methodology Performed at: [facility] [id number] PhD Priya Govea Performed By: #### 1 [id number], [id number], [id number], [id number] ####[facility] [address] [place] [address] Mitogen stimulated gamma interferon Qn (Bld) >10.00 Invalid Interpretation Code [facility] Comment on above: Performed By: #### 1 [id number], [id number], [id number] ####[address] [place] [address] Service comment (Unsp spec) [Interp] Comment Invalid Interpretation Code [facility] Comment on above: Result Comment: [place] tiFERON-TB [...] for the test. Performed By: #### 1 [id number], [id number], [id number], [id number] ####[facility] [address] [place] [address] Varic IgGon 07-01-2022 VZV IgG IA Qn (S) 1985 Invalid Interpretation Code Immune >165 [facility] Comment on above: Result Comment: Nega tive <135 Equivocal 135 - 165 Positive >165 A positive result generally indicates exposure to the pathogen or administration of specific immunoglobulins, but it is not indication of active infection or stage of disease. Performed at: [facility] [id number] PhD Priya Govea Performed By: #### 1 [id number], [id number] ####[facility] [address] [place] [address] Consent for Treatmenton Consent for Treatment [id number]#1 .00CD:127 Normal [facility] Physician Orderon 06-29-2022 Physician Order [id number]# 1.00CD:127 Normal [facility] CBC AUTO DIFFon 06-14-2022 BASO # 0.0 103/ul Normal 0.0-0.1 [facility] Comment on above: Performed By: #### C BC #### [facility] [address] [place] [address] Dr. Zach Mccormick Basophils/100 WBC (Bld) 0.5 % Normal 0.2-2.0 [facility] Comment on above: Performed By: #### C BC #### [facility] [address] [place] [address] Dr. Zach Mccormick EO # 0.2 103/ul Normal 0.0-0.7 [facility] Comment on above: Performed By: #### C BC #### [facility] [address] [place] [address] Dr. Zach Mccormick Eosinophils/100 WBC (Bld) 3.7 % Normal 0.9-7.0 [facility] Comment on above: Performed By: #### C BC #### [facility] [address] [place] [address] Dr. Zach Mccormick Erythrocyte distribution width (RBC) [Ratio] 12.4 % Normal 11.0-15.0 [facility] Comment on above: Performed By: #### C BC #### [facility] [address] [place] [address] Dr. Zach Mccormick Hematocrit (Bld) [Volume fraction] 39.6 % Normal 36.0-48.0 [facility] Comment on above: Performed By: #### C BC #### [facility] [address] [place] [address] Dr. Zach Mccormick Hemoglobin (Bld) [Mass/Vol] 13.0 g/dL Normal 12.0-16.0 [facility] Comment on above: Performed By: #### C BC #### [facility] [address] [place] [address] Dr. Zach Mccormick IG # 0.02 10e3/ul Normal 0.00-0.03 [facility] Comment on above: Performed By: #### C BC #### [facility] [address] [place] [address] Dr. Zach Mccormick IG % 0.3 % Normal 0.0-0.5 [facility] Comment on above: Performed By: #### C BC #### [facility] [address] [place] [address] Dr. Zach Mccormick LYMPH # 2.4 103/ul Normal 1.2-3.8 [facility] Comment on above: Performed By: #### C BC #### [facility] [address] [place] [address] Dr. Zach Mccormick Lymphocytes/100 WBC (Bld) 41.3 % Normal 20.5-60.0 [facility] Comment on above: Performed By: #### C BC #### [facility] [address] [place] [address] Dr. Zach Mccormick MANUAL DIFF REQ NO Normal [facility] Comment on above: Performed By: #### C BC #### [facility] [address] [place] [address] Dr. Zach Mccormick MCH (RBC) [Entitic mass] 28.3 pg Normal 26.7-34.0 [facility] Comment on above: Performed By: #### C BC #### [facility] [address] [place] [address] Dr. Zach Mccormick MCHC (RBC) [Mass/Vol] 32.8 g/dL Normal 29.9-35.2 [facility] Comment on above: Performed By: #### C BC #### [facility] [address] [place] [address] Dr. Zach Mccormick MCV (RBC) [Entitic vol] 86.3 fL Normal 81.0-99.0 [facility] Comment on above: Performed By: #### C BC #### [facility] [address] [place] [address] Dr. Zach Mccormick MONO # 0.4 103/ul Normal 0.3-0.8 [facility] Comment on above: Performed By: #### C BC #### [facility] [address] [place] [address] Dr. Zach Mccormick Monocytes/100 WBC (Bld) 6.1 % Normal 1.7-12.0 [facility] Comment on above: Performed By: #### C BC #### [facility] [address] [place] [address] Dr. Zach Mccormick NEUT # 2.8 103/ul Normal 1.4-6.5 [facility] Comment on above: Performed By: #### C BC #### [facility] [address] [place] [address] Dr. Zach Mccormick Neutrophils/100 WBC (Bld) 48.1 % Normal 43.0-75.0 [facility] Comment on above: Performed By: #### C BC #### [facility] [address] [place] [address] Dr. Zach Mccormick Platelet mean volume (Bld) [Entitic vol] 10.4 fL Normal 9.5-13.5 [facility] Comment on above: Performed By: #### C BC #### [facility] [address] [place] [address] Dr. Zach Mccormick PLT 242 103/ul Normal 150-450 [facility] Comment on above: Performed By: #### C BC #### [facility] [address] [place] [address] Dr. Zach Mccormick RBC 4.59 106/ul Normal 4.20-5.40 [facility] Comment on above: Performed By: #### C BC #### [facility] [address] [place] [address] Dr. Zach Mccormick WBC 5.9 103/ul Normal 4.0-11.0 [facility] Comment on above: Performed By: #### C BC #### [facility] [address] [place] [address] Dr. Zach Mccormick LIPID PROFILEon 06-14-2022 CHOL-HDL RATIO NORM SEE BELOW Normal [facility] Comment on above: Result Comment: 3.3 - 4.4 LOW RISK 4.4 - 7.1 AVERAGE RISK 7.1 - 11.0 MODERATE RISK >11.0 HIGH RISK Performed By: #### T SH, CMP, LIPID #### [facility] [address] [place] [address] Dr. Zach Mccormick Cholesterol [Mass/Vol] 207 mg/dL Critically high <=200 [facility] Comment on above: Performed By: #### T ESAU CMP, LIPID #### [facility] [address] [address] [address] Zach Mccormick Cholesterol in HDL [Mass/Vol] 81 mg/dL Critically high 40-60 [facility] Comment on above: Performed By: #### T ESAU, CMP, LIPID #### [facility] [address] [address] [address] Zach Mccormick Cholesterol in LDL [Mass/Vol] 99.6 mg/dL Normal [facility] Comment on above: Performed By: #### T ESAU CMP, LIPID #### [facility] [address] [address] [address] Zach Mccormick Cholesterol.total/Lauren sterol in HDL [Mass ratio] 2.6 {ratio} Normal [facility] Comment on above: Performed By: #### T ESAU CMP, LIPID #### [facility] [address] [address] [address] Zach Mccormick HDL NORMAL > or = 60 mg/dl - LO W CARDIOVASCULAR RISK <40 mg/dl - HIGH CARDIOVASCULAR RISK Normal [facility] Comment on above: Performed By: #### T ESAU CMP, LIPID #### [facility] [address] [address] [address] Zach Mccormick LDL CALC NORMAL SEE BELOW Normal [facility] Comment on above: Result Comment: <100 mg/dl OPTIMAL 100 - 129 mg/dl NEAR OR ABOVE OPTIMAL 130 - 159 mg/dl BORDERLINE HIGH 160 - 189 mg/dl HIGH >190 mg/dl VERY HIGH Performed By: #### T SH, CMP, LIPID #### [facility] [address] [address] [address] Zach Mccormick Triglyceride [Mass/Vol] 132 mg/dL Normal <=150 [facility] Comment on above: Performed By: #### T SH, CMP, LIPID #### [facility] [address] [address] [address] Zach Mccormick VLDL CALC 26.4 mg/dL Normal [facility] Comment on above: Performed By: #### T SH, CMP, LIPID #### [facility] [address] [address] [address] Zach Mccormick PROF 14(COMP METB)on 023 Albumin [Mass/Vol] 3.8 g/dL Normal 3.4-5.0 [facility] Comment on above: Performed By: #### T SH, CMP, LIPID #### [facility] [address] [address] [address] Zach Mccormick Albumin/Globulin [Mass ratio] 1.1 {ratio} Normal [facility] Comment on above: Performed By: #### T SH, CMP, LIPID #### [facility] [address] [address] [address] Zach Mccormick ALP [Catalytic activity/Vol] 51 U/L Normal 46-116 [facility] Comment on above: Performed By: #### T SH, CMP, LIPID #### [facility] [address] [address] [address] Zach Mccormick ALT [Catalytic activity/Vol] 15 U/L Normal 14-59 [facility] Comment on above: Performed By: #### T SH, CMP, LIPID #### [facility] [address] [address] [address] Zach Mccormick Anion gap [Moles/Vol] 9.7 mmol/L Normal [facility] Comment on above: Performed By: #### T SH, CMP, LIPID #### [facility] [address] [address] [address] Zach Mccormick AST [Catalytic activity/Vol] 14 U/L Critically low 15-37 [facility] Comment on above: Performed By: #### T SH, CMP, LIPID #### [facility] [address] [place] [address] Dr. Zach Mccormick Bilirubin [Mass/Vol] 0.5 mg/dL Normal 0.2-1.0 [facility] Comment on above: Performed By: #### T SH, CMP, LIPID #### [facility] [address] [address] [address] Zach Mccormick Calcium [Mass/Vol] 9.3 mg/dL Normal 8.5-10.1 [facility] Comment on above: Performed By: #### T SH, CMP, LIPID #### [facility] [address] [address] [address] Zach Mccormick Chloride [Moles/Vol] 103 mmol/L Normal 98-107 [facility] Comment on above: Performed By: #### T SH, CMP, LIPID #### [facility] [address] [address] [address] Zach Mccormick CO2 [Moles/Vol] 31.2 mmol/L Normal 21.0-32.0 [facility] Comment on above: Performed By: #### T ESAU, CMP, LIPID #### [facility] [address] [place] [address] Dr. Zach Mccormick Creatinine [Mass/Vol] 0.69 mg/dL Normal 0.55-1.02 [facility] Comment on above: Performed By: #### T SH, CMP, LIPID #### [facility] [address] [place] [address] Dr. Zach Mccormick EGFR-AF IRANIAN >60 Normal >=60 [facility] Comment on above: Performed By: #### T SH, CMP, LIPID #### [facility] [address] [place] [address] Dr. Zach Mccormick EGFR-NON AF IRANIAN >60 Normal >=60 [facility] Comment on above: Performed By: #### T SH, CMP, LIPID #### [facility] [address] [place] [address] Dr. Zach Mccormick Globulin (S) [Mass/Vol] 3.4 g/dL Normal [facility] Comment on above: Performed By: #### T SH, CMP, LIPID #### [facility] [address] [place] [address] Dr. Zach Mccormick Glucose [Mass/Vol] 88 mg/dL Normal 74-106 [facility] Comment on above: Performed By: #### T SH, CMP, LIPID #### [facility] [address] [address] [address] Zach Mccormick Potassium [Moles/Vol] 3.9 mmol/L Normal 3.5-5.1 [facility] Comment on above: Performed By: #### T ESAU CMP, LIPID #### [facility] [address] [address] [address] Zach Mccormick Protein [Mass/Vol] 7.2 g/dL Normal 6.4-8.2 [facility] Comment on above: Performed By: #### T ESAU, CMP, LIPID #### [facility] [address] [address] [address] Zach Mccormick Sodium [Moles/Vol] 140 mmol/L Normal 136-145 [facility] Comment on above: Performed By: #### T ESAU CMP, LIPID #### [facility] [address] [address] [address] Zach Mccormick Urea nitrogen [Mass/Vol] 10.0 mg/dL Normal 7.0-18.0 [facility] Comment on above: Performed By: #### T ESAU, CMP, LIPID #### [facility] [address] [address] [address] Zach Mccormick Urea nitrogen/Creatinine [Mass ratio] 14.5 mg/mg Normal [facility] Comment on above: Performed By: #### T ESAU, CMP, LIPID #### [facility] [address] [place] [address] Dr. Zach Mccormick TSHon 06-14-2022 TSH 1.396 uIU/mL Normal 0.358-3.740 [facility] Comment on above: Performed By: #### T ESAU, CMP, LIPID #### [facility] [address] [place] [address] Dr. Zach Mccormick XR CSPINE 2_3 VIEWSon 2022 XR CSPINE 2_3 VIEWS EXAM: XR CSPINE 2_3 VIEWS HISTORY: Cervical radiculopathy COMPARISON: None. TECHNIQUE: Lateral, flexion, extension radiographs of the cervical spine. FINDINGS/IMPRESSION: Limited exam given only lateral views. Anatomy: There are 7 bby-guz-hxpsvnt cervical segments. Bones: No acute fracture or dislocation. No suspicious lytic or sclerotic lesion. Normal lateral atlantoaxial alignment. Mild C4-C7 facet degeneration. Mild C5-C6 disc height loss. Mild C4-C6 endplate osteophytosis. No evidence for instability. Other: Unremarkable. Electronically authenticated by: ISHA LERMA Date: 2022-06-14 09:08 Normal [facility] Coding Summary.on 12-31-2021 Coding Summary. CD:[id number] G h0bWw+PGhlYWQ+WK5KIYF lI78veXByoG9XV4xWNR8C NSXKKYLVND5VYK1woYG9Y WedZ0BewcTd OwtnmJXrCE39WPv8QUJ2w FibGOtglF5hvQGzF6i5Py OwXQ66oV74TRsuTOIjOaJ 3LjZpbjsgbWFy X1mzMuIuxQXxDai+PHRhY mxlIHdpZHRoPScxMDAlJy CpcXsiMT7wCi9uTELwICM vbGxhcHNlOiBj u7zbKDBzXWzaQE7mtUxwE 5JzzXR8NLXgc1b2Wo43nS I+USGnQJX0iXgqFVyfe24 4MqNlt5yxMFR0 rOHrFVzvYNS5T90zq3M9R LYyBQPcIRF6kCL0gP3ooA iybibuY3ApnRNgPcX3PDT 7bDImoY8psVfl gulguV4pAqt+B12LIF8FX SUVYZ8XQnz0K0NqFtwbvJ I+OF66UJXfLO40cYDkwJR uu3hmtWy6HiBm LTQcWNB6xSwjXWtqf2SuG NAnQ96euGVoo7U3FRDssD snxKLjWfKpzTT3uK1vYDx yzknkr8ajyiuw Pgnls2azge40nS39A92yM GbyBMKgVCF2XYEaDPPpfD yxpj7dxB4sKd0+FTodi9z gn1wadFa3TiBj XZZjuwSpeIwaGMS7a8XeC d67Q3VhrFvoy0QwWhc2yc 87aKFfu4F2nUT1MUqrAOX omH7pHCkwRxT6 LBVfSiYyjK09wFUsWAtcZ b5jeYjkiBbzUF6wODEesn ugVUOnyZ9vQQCeaISjlWe sAX9yYPWwpwxg e288LfMmKVG4OEVkfZRkT 8GdhZ7pAaIkURQpCVNpM2 XudXAaJWkpO583UKesMcI 4EVWlooCkH4Ns ZVFoyVcmLiB7j5U5Sp4Nj 4IxcdrjSZU3RWmxLYC1Xb F6FhHeGaI4A0QdQqv9ZOX wuScgFW5mE9Bl QDKjdbdkfipsmKB1XWYdC YHwlJ38aECuDNblAe9ey6 B3w427TZZhXDYfaS69Rb8 udDogMTBwdCBU kK7xnhqkr8gqdsebWrWyG MLmXNj0SBk3ZHTqyIquAb XsZIH1IvB2GXQ2zMSvsW9 ujZwguxfhaN9l Oyc+T92yzP2zNLU6RGA4n aqiTDUtukGjQN96WE31K0 RyPjwvdGFibGU+PGRpdiB hzPnaQF4tSvKz z3wnh4McDYxjR3IgESHfN LclJfk5PADtYYN5yJL5oV 1aUUKpZZsrq5C0kEI6U6M rptFhdq6kb8ek JXJgKByiY68ccIBle7Q0M QLonCE0GQKjoBodHtFkpW 93Oyc+ATKdjZjrl1MfUzg rc3kyw0wxaHg7 QaJiLACgntGdlHudROM2p 4NpAe63E18fNUepBRLuES JgJBBwDPNafFleqp9yoC1 wIi8+PGNvbCB3 gZW7dI2yPLQtBcF6TXhnY 217XnIbqEHuHgobf5qkx9 jpkBv9DtYqLOQhqzPioQe aMQN4f8SeQz72 F77qXPalIFOiCVCkATMjZ FKnyXlkmw0whU4lHd3+PC 6st6brjv11rQ34zTS+PHR tIHV9uAnjPGvu MKRqhU0cTMpuTeG2LXGeN eCibZ45xBLhDOggXj7atO opcGikZL7qANAvesqrf28 2KtUfb6zbJSBg pTGeDLniQXR7T58eb5V1X CTcXJIbUQQ4dDK4kQ9bsU lnbjogbGVmdDsgdmVydGl zXMadCVilN403 IHRvcDsnPlBhdGllbnQgT vVfSPq0Q6UmIer5PCNtjL kzBH3loGAhVLzuKq3urPn etKrfVZ4jFIIt zqrvl902WhCfq2vwYGJsi STiKYlkBGJ4U88qp6V2EM VxUHDfFOL8pRE5wF1ecQi nbjogbGVmdDsg sdRabPsaLNejFLunP867O HRvcDsnPkJpcnRoIERhdG C1JF25OF38eQCgf7V3bPK 1M4MrUXVvwtjz dsfnsGE2KMYwSFBthW16E d9ytHxmKu8rNRHaUNX7JC CiiTGuT9OoxY5vCsObRYB yZFQcU5UilANf TIwbM912PMmfUoC1USVjg yRvV7KvJLIodJhkSiK8o8 J8Iw0OT9S8MZ17VP71mXJ jh3F3gGY7H3As VBQunqqlnndfzKX0FQRsL DEtdQ61Cy9agZigMy9mKH XxHQH1ETCrsBFxF8DgeE6 yOiAjMDAwMDAw F3ZqhNMkAKntJ139EOrjC hQ3CLJeyePwF4PlAOQpnY jwKeQ7n9L8Ol4DCRz8DW8 2HH67uQBek8N5 yKF7N8KvGLNruuaihegof EX7EMVzAGBlbN01Mx3ruY uwIy8gSOEcNIX2GVBikVB mH9HxlI6rWoFa RLWxHONlN2UrkIWhEPikV 594XZviPlR6AYWcxrYfT6 AdJUUszOjzLeW7x4X7Fa7 ETOSbER32BUL5 tLQ6WM49LS44T7MiHyytu GFibGU+PHRhYmxlIHdpZH RoPScxMDAlJyBzdHlsZT0 rGu8wAUOzUQQi nPtamALhNiKht7jyTKYoO MibWJ0oyJobS2HkyHG9MM Rbw0d8My14X74cH5JraYR +QCUkdAC7bCA0 jS6iEiCnTrI2LVptL556T cCarYLdJqpxw7tlh0lhoM s4YwQ7CSHfyzRivExuWDZ 8m6LtZp01H79i IHdpZHRoPSIxNSUiIHZhb Ushnq3qoH0hLf5+PGNvbC H0oTE6fH9pZaCfYyJ8EGf kL074NzNxpKIz Thxno1npt5msbRx8IkWzJ DHbwaFnnRstNHZ0d8TiKn 48G6KggVcaj0OiUuu5bi6 3uVPxq6L8uPH7 L9YkREZilojypUGfnIacH T4bJSBjiyivXOQroF7sOS WxZ6b0LiVqEvF0QMxfJ0V mahS1VBXhtXXv OYuwLTY1D74tj0Z8DTXsA MPmENH3aMF6vI0uaZjjiz ogbGVmdDsgdmVydGljYWw oOBdrC038DQTi dMncRKDurG8xJUUklLCtp ReyXU1cPNXyffkzCeZAVM eCQwrOQeqhJA9ABZnbAGk vdGQ+PHRkIHN0 rBumGSkcHTZjqJ1iQTCpL 4e2EaQoXoO3HOizY6IyHG HomcyfEz12wN9mQcXhSgX 6PNatQ1EsohN5 OKFuwQWmTTngSXY6H30gb 4B5VNAnGGMgTAL0aJW6gL 1hbGlnbjogbGVmdDsgdmV ydGljYWwtYWxp A418SMWrkNrvHjVyZwSgX cP8KvT3I4NqRnp8KVUeuX ouZJ9zzRUqKDdrMp2jeSo tePaeAL5lVJWw umtiBIMupF3qZDEeiNQjs VuyCQ9zXACbufqcv000Wx GfEJC7GAKtoTGiH8ImmV9 yOiAjMDAwMDAw R6IxfVCjVMcdZ431KGwxW uC2UZRcqyScJ7NeRBQqqU zlDiW5x2H3Cb31SeYXFUL yczwvdGQ+PHRk MRK5fNhwCYtdCJZgjT2bK SWkW3h6HrHcUxQ0KNpaC7 ApKTIokhcgRb56kG8xSfY eCbQ8VJhtS6Ss qzV6WMZfoCWuPBmlTLS3E 62nt0Q2HSQuNTSgNXB2pA W0rV1wfBrvzymfdCBkzAr gdmVydGljYWwt VAlnC972LFCxeZpdNvQgr WFsZTwvdGQ+XVAvIQZ6xR tnRIyqRLBecI8sQQCxN7p 9TrHaXtF3MZjb J9JgIZOludaiUp23eM8kR kXgEtW5KCsvV6KelqK3CE AzeRRrWTvoYMZ2L73ni9Y 2EZObUKDwVTM7 mSI0sH4unEtgvjrdkFRvh DsgdmVydGljYWwtYWxpZ2 22MUUqqRdoCdDfKTIsMR2 jeTwvdGQ+PC90 vo57G0KqBaipVgf6KSQqU OD5oCH4oK6pMNWyMHplp4 L7aHP3K7CciaZxbx0fc3i tFVEmXVsxV72d tAOjl7A5DMYxvWE2MUQrf AtvQhIdlE32Xsq+PGNvbG eda4AyOtvfd3cyc8xfiEu 9IjMwJSIgdmFs pZucITG0m5BeDt21P26sW HdpZHRoPSIzMCUiIHZhbG rkga4pnD1sFe0+PGNvbCB 9mGL5rO7uRnXr TtP0KKuoR055ZyAzmEJuZ fzzf7dhu6buoOh8BuTgND GppwTuxGplKOG6d4ToQn6 5I1NidIupb7Af Wds8rx33vIJfg8Y9mEG5O 3BhZGRpbmctbGVmdDogMC 4gORBgdlkhBTAvoO2rUDH bC5n6XiYjTqD6 MXkvR8ChhuF4BMNftAIiB NSkxMUVeL4smpbed5usyc sbSdDpZRPgULb4TRs0VTE saWduOiBsZWZ0 VsF7MPB0lLZsxB9mpUkny akqnY6sBdp+PBt8b7jqzH YkEL8nbRE0GG02AP56oCW jg3F0uIA0R2Lt OTZgiplvcoiulHQ8NLVdC CIddN56Sw0vuBbjIt0uIL MlLIP7QMTufSSkL3PmgJ6 yOiAjMDAwMDAw Y7IgbEJcFZodD645QQfvI hO6TCJkagAoE8FtFCGbxP caKpX0j6W4Ho2KKM40TS3 4RA79bQEct1R6 zRB8J4ImMWObkiyqxdnin HW3WCIrNEFkvQ33Gm0twD wfKp1cWDOvVHK9TDQjpUZ wL7TkwI3bInRv FOWrWDJlW3XeaSXgYCidQ 770EMsyFeT6QZAgxmGuP9 LkDORnuAppSbL5u5F9Ej0 MQz61MO35AG27 qZIdi4J3cPV0J7XcGZZlp ppwgcmygQN3WYXwUCLtlX 78Nh0lfYksYi2gZJFmSJI 4SVNegYEjQ3Qh uD7jFeIzEUXiMCNxJ2Kdd DKuMDfaM111ORmuMpZ4MW BdklLzH6SiFXRwsIgoXoP 5h0D5Rr9MFZqn dvb8O4AsNasbaTQ+PC90Y KWjTQ38fPBqjRDgn1wuhW b1VcRcNOSpYZB9cQnwPPr bg7MfQLPcZ56x bGFw (more content not included)... Normal [facility] Discharge Instructionson Discharge Instructions [id number] .[id number]:127 Normal [facility] Grp A Strp PCRon 12-30-2021 Grp A Strp Intrl Ctrl Pass Normal [facility] Comment on above: Order Comment: Order Added on by Discern Rule. Performed By: #### 2 [id number], [id number] ####[facility] [address] [place] [address] S. pyogenes rRNA Probe Ql (Unsp spec) Negative [facility] Comment on above: Order Comment: Order Added on by Discern Rule. Result Comment: Test ing performed using DNA amplification. Performed By: #### 2 [id number], [id number], [id number] ####[facility] [address] [place] [address] Rapid COVID Antigen ([facility])on 12-30-2021 Rapid COV Int NEG Ctl Pass Normal [facility] Comment on above: Performed By: #### 2 [id number], [id number] ####[facility] [address] [place] [address] Rapid COV Int POS Ctl Pass Normal [facility] Comment on above: Performed By: #### 2 [id number], [id number], [id number] ####[facility] [address] [place] [address] SARS-CoV+SARS-CoV-2 (COVID-19) Ag IA.rapid Ql (Resp) Not detected Normal Not Detected [facility] Comment on above: Result Comment: The APProtect? System for Rapid Detection of SARS-CoV-2 is [...] or revoked sooner. Performed By: #### 2 [id number], [id number], [id number] ####[facility] [address] [place] [address] Rapid Strep w/rfxon 12-31-19 22 S. pyogenes Ag IA.rapid Ql (Throat) Negative Normal Negative [facility] Comment on above: Performed By: #### 2 [id number], [id number], [id number] ####[facility] [address] [place] [address] Consent for Treatmenton Consent for Treatment [id number] .00CD:127 Normal [facility] ED Clinical Summaryon 2021 ED Clinical Summary [address] [address] ED Clinical Summary Person Information Name: WYATT HARRINGTON [facility] Age: 46 Years : 1975 Sex: Female Language: Citizen Of [place] PCP: ALISHA SELLERS MD Marital Status: Phone: [phone] Visit Id: Visit Reason: Cough; Ear pain; [...] 12/29/2021 21:56:01 12/29/2021 21:56:01 12/29/2021 21:56:01 ADDRESS: [address] [place] [phone] PHYS DOC NOTES: MEDICAL INFORMATION: Prescriptions Given: New Medications [id number], [address] [place], [place] [id number], [phone] azithromycin (azithromycin 250 mg Tab) 250 Milligram By Mouth As Directed. Refills: 0. guaifenesin-pseudoeph edrine (Mucinex D Max Strength oral tablet, extended release) 1 Tablets By Mouth every 12 hours for 7 Days. Refills: 0. Medications to Continue with No Changes Other Medications acetaminophen-hydroco done (Logan 325 mg-5 mg oral tablet) 1 Tablets By Mouth every 4 hours as needed for pain. Refills: 0. PATIENT EDUCATION INFORMATION: Instructions: Sinusitis, Adult, Npzg-bu-Bepv; Pharyngitis, Sfwu-cr-Dzyg Follow up: With: Address: When: Call for test results With: Address: When: ALISHA SELLERS [facility] [place] [id number] Business (1) In 3 days 01/01/2022, only if needed DIAGNOSIS: 1:Acute sinusitis; 2:Acute pharyngitis Normal [facility] ED Note-Physicianon 12-30-19 ED Note-Physician Basic Information [...] Directed, # 6 tab(s), Refills(s) 0, Pharmacy: [id number], 155, cm, 12/29/21 20:14:00 EDT, Height/Length Dosing, 49, kg, 12/29/21 20:14:00 EDT, Weight Dosing guaifenesin-pseudoeph edrine, 1 tab(s), Oral, q12hr for 7 day(s), 14 tab(s), Refill(s) 0, [id number], 155, cm, 12/29/21 20:14:00 EDT, Height/Length Dosing, 49, kg, 12/29/21 20:14:00 EDT, Weight Dosing Rapid COVID Antigen ([facility]) Rapid Strep w/rfx Disposition Plan Patient Discharge Condition Stable Discharge Disposition Home Discharge Prescription List Prescriptions azithromycin 250 mg Tab, 250 mg, Oral, As Directed Mucinex D Max Strength oral tablet, extended release, 1 tab(s), Oral, q12hr Follow-up With When Contact Information ALISHA SELLERS In 3 days 01/01/2022 EDT, only if needed [address] [place] [address]- [facility] (1) Additional Instructions: Call for test results Additional Instructions: Patient Education Sinusitis, Adult, Ubnp-ob-Aojl Pharyngitis, Bdet-if-Uorr Problem List/Past Medical History Ongoing ADD (attention [...] tablet, extended release, 1 tab(s), Oral, q12hr Logan 325 mg-5 mg oral tablet, 1 tab(s), [...] Diagnostic Results No qualifying data available. Normal [facility] Comment on above: Result Comment: Elec tronically [...] home: Medicines ? Take, use, or apply agny-hda-tjhztgu and prescription medicines only as told by [...] is no soap and water, 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 ? Do not smoke. Avoid being around [...] by you (more content not included)... Normal [facility] ED Patient Summaryon 022 ED Patient Summary (Inserted Image. [place] [id number] Patient Discharge Instructions Person Information Name: WYATT HARRINGTON Age: 46 Years Arrival Date: 12/29/2021 20:04:48 Discharge Diagnosis: 1:Acute sinusitis; 2:Acute pharyngitis Primary Care Physician: ALISHA SELLERS MD Provider Information Primary Provider: Bernabe Eller MD Advanced Napping Machine Operator:None The exam and treatment you received in the Emergency Department were for an urgent problem and are not intended as complete care. It is important that you follow up with a doctor, nurse practitioner, or physician?s railways assistant for ongoing care. If your symptoms become worse or you do not improve as expected and you are unable to reach your usual health care provider, you should return to the Emergency Department. We are available 24 hours a day. WYATT HARRINGTON has been given the following list of patient education materials, prescriptions and follow-up instructions: Follow-up Instructions: With: Address: When: Call for test results With: Address: When: ALISHA SELLERS [address] [place] [address] [facility] () In 3 days 01/01/2022, only if needed In the event that this physician does not participate in your insurance network, please consult with your insurance company to find a nearby participating provider. Patient Education Materials: Sinusitis, Adult, Jewu-sk-Xubo; Pharyngitis, Hion-ds-Urve A MESSAGE TO ALL PATIENTS REGARDING OPIOIDS PRESCRIPTION OPIOIDS: WHAT YOU NEED TO KNOW Prescription opioids can be used to help relieve rfdvugly-np-vufgny pain and are often prescribed following a [...] be struggling with addiction, tell your health child care cook an (more content not included)... Normal [facility] MICRO OTHER TESTSOrdered By: Shailesh Dye on 12-29-2021 Rapid COV Int NEG Ctl Pass (12/29/21 9:38 PM) Normal [facility] Man Sero Rapid COV Int POS Ctl Pass (12/29/21 9:38 PM) Normal [facility] Man Sero S. pyogenes Ag IA.rapid Ql (Throat) Negative (12/29/21 9:38 PM) Normal Negative [facility] Man Sero SARS-CoV+SARS-CoV-2 (COVID-19) Ag IA.rapid Ql (Resp) Not Detected (12/29/21 9:38 PM) Normal Not Detected [facility] Man Sero Rapid COVID Antigen ([facility])on 12-29-2021 ADMITTED TO INTENSIVE CARE UNIT FOR CONDITION OF INTEREST:FIND:PT: NO Normal [facility] Comment on above: Performed By: #### 2 [id number], [id number], [id number] ####[place] [address] EMPLOYED IN A HEALTHCARE SETTING:FIND:PT: NO Normal [facility] Comment on above: Performed By: #### 2 [id number], [id number], [id number] ####[place] [address] FIRST TEST FOR CONDITION OF INTEREST:FIND:PT: NO Normal [facility] Comment on above: Performed By: #### 2 [id number], [id number], [id number] ####[place] [address] HAS SYMPTOMS RELATED TO CONDITION OF INTEREST:FIND:PT: YES Normal [facility] Comment on above: Performed By: #### 2 [id number], [id number], [id number] ####[place] [address] HOSPITALIZED FOR CONDITION OF INTEREST:FIND:PT: NO Normal [facility] Comment on above: Performed By: #### 2 [id number], [id number], [id number] ####[address] [place] [address] STATUS:FIND:PT: Unknown Normal [facility] Comment on above: Performed By: #### 2 [id number], [id number], [id number] ####[facility] [address] [place] [address] RESIDES IN A COMMUNITY HEALTH CARE SETTING:FIND:PT: NO Normal [facility] Comment on above: Performed By: #### 2 [id number], [id number], [id number] ####[facility] [address] [place] [address] C Urineon 11-10-2021 Bacteria identified Cx Nom [...] Locations R1: This test was performed at: [facility], [address] [place] [address], [phone] , , Normal [facility] Comment on above: Performed By: #### 2 [id number] #### [facility] [address] [place] [address] Chlamydia/Gonococcus, NAAon 11-10-2021 C. trachomatis rRNA JACEY+probe Ql (Unsp spec) Negative Invalid Interpretation Code Negative [facility] Comment on above: Performed By: #### 1 [id number] ####[facility] [address] [place] [address] N. gonorrhoeae rRNA JACEY+probe Ql (Unsp spec) Negative Invalid Interpretation Code Negative [facility] Comment on above: Result Comment: Perf ormed at: =[facility] [id number] MD Yana Tan Performed By: #### 1 [id number] ####[place] [address] [place] [address] Coding Summary.on 11-09-2021 Coding Summary. CD:[id number] G h0bWw+PGhlYWQ+EI8AXJR bD90foFVpoP6HY6aDRQ3P XZBNRNQHFJ0RQE9quSO1J DvvF3WngoOg EyfygXCdTV50DOf8CTH8s SwnRXfulZ5keNYeS9v8Bo NkQN57mY15NFruESVkYoX 3LjZpbjsgbWFy B2zmLfNasYPxSkw+PHRhY mxlIHdpZHRoPScxMDAlJy ErxIbyLJ6jId2cRCItGGU vbGxhcHNlOiBj s8pzDNQdEMqqUG5yyQreC 6ZfiUE9KKRqo9e0Lx80kR I+XSTlOZV0gEvzMJmfc55 8YvCzf3knTRQ5 vJKwKZieKHN6T48fg9O9V OHbGEAcHOW7lZZ5bA0aiQ wmyahsQ8PonVLqHuJ4GMY 7jGUpaX0jtSpo sibwoU8sCfm+U38BCI9WG YEWRW1LWnh6P4SlSqpaaG I+IT21ZIMdSJ65wXXhnIB jj3oxkUz7CpFl SGAjWZS0iDepNOjtu5CxV ORuN48tyCVvs3R9VWTqsR uudYShZeOaaUL6rC0qNVg rlixqc2bapkqu Dmehm7ttlt15iF48F71tR ZwzLFScUGY4RICkQFSxbE bhha6qsZ5wGb4+TRnyq4s ic6kdbVe9GiCg XOIslgBmbGlpGLW2a0NdO r60P0VknNhqa5HmJfv1yo 49aPUqn7P8jPI5SSeiMSI xxP2gGUtoOiG4 IBJvRxAcyQ69wPHpVTamW x5hiIkpiWhkQH9uDHDdoe ruXGIptP9oDYCwwYQukVs uCY5fBCRyiwqy x843YqQtFTO9MKDzcEUqP 8NxgY0dRgEeMPJwYXZuQ5 WtjTQiQNlqP247TNfxUeW 9WFVrbkFrI2Bx IFUtpRaaGsP0d4I6Rf9Eo 9BhenijSPM9LQqeBZA2Ij N1QzUoRcQ5I4UkSio5GHB isMroED7kR6Iu MHZrzxfmgklayQO2DUUnJ HRhlO65gWZgOMozJz6bb2 V4y349BEHbDLMqxQ01Ej3 udDogMTBwdCBU yR4jnkzgx0zfzdblGkBtJ NInLQx3TAi4TSYbsRaxHp YuHSQ5KyL7OAI5qUImiQ6 esXgxycpzyL6q Oyc+K61ckO0yCHC7DWN2t pawKOBayuUrCM75KX89O0 RyPjwvdGFibGU+PGRpdiB ckVdqPM3gIxAs j8tnm3VoGKhrT7NcOWYqK WbtNvg6DMRuEJA6iDK5dG 9uILAnGCiah1S6eZS2Q4U dlzDtjt8xy3bm NDRjYAvcV50scKOmm2R2R LPctSH4SIJdsPrlHvJrlZ 93Oyc+UDCstOjxe0QyZqi xk1lff0kshMc3 UwTwNGHkxlEwlPhwMTX0g 7IsLo20K59tIHrcHOCnRC UzWYYwNFMipFgrmi3hiD8 wIi8+PGNvbCB3 uEW8tU0qOTYoZlN5CUaxO 196PyIjuRRsLblwx7uba9 fzpUe9AlCtUEJkraLauPg oILH5a7OcAf13 H79bHXbyCMBdNTLvEERtP JAcaOrmam4ezG0jGb5+PC 0ah3yrnz92jT94pVT+PHR fXLX5eGqcQEcp LNCixX4tXTyoYyR6AXIbU xCpiR54xFZdYTxiAg7ydB xzcLcuIQ3zBRKquflnw02 3AgWts2whYRLn dIZtMKpdEQZ9X19ug5V6I SAbGCYfMAZ6jTE6wO6hyU lnbjogbGVmdDsgdmVydGl iVRbvEHxlE366 IHRvcDsnPlBhdGllbnQgT cRpTXs7M8YbRfn1ZFQwlH jeUB5muKCzEYdeQv7moVa isUqaBE7mPGRx zdqiq209MjUru1rcZQEnz FQuLLaxCYO2K11yl0T2OQ PkCSUhWME1xBJ2fF7beVj nbjogbGVmdDsg thOcgMjjLEjwSCzvB435B HRvcDsnPkJpcnRoIERhdG G6GQ30NG40aURky5A1sSN 7F7SoNRTtbtou twvjbLQ4RBPbDPWjgC61T h1wgLhrWw7cUQDtQXC3SJ HgeHCkZ0AtwB9xKqZsDSV gMWWpB1LojABo CFipT496QThwOkP3UIPxp mMlK0BzORDajBehGwD9g9 B9Jh8FK6M2FN01KQ59nNC ee1W5gMV2E8Ac JKSgorymwykkaLM4VAMeN UFlaF82Zj1bsPdoXt5pSW WmVXZ4SQSlpDEnM0MiyY0 yOiAjMDAwMDAw V3LowARhNArdT307WKqpG aW4JWDlhsJgN3YyTOWikW lzJrG8e7X9Ua5LYBr6NP0 1UM83gYDhb6K6 mPT8S9IsMNGbzvpongmgn YO8MZYlFWKqcL04Uc6oyX wwLo9bNYYsKPL0JSRtiSU zD7JhqI0iNxDi JFYtQVCmA4KvzYJeZEayC 996IBchVwN4QSXoqmQkZ2 QsBHPnsLqmZlJ4s4D3Ro7 RCXAnMH93KJS6 cHB5QW60OW89H8SaZviue GFibGU+PHRhYmxlIHdpZH RoPScxMDAlJyBzdHlsZT0 tCg2aAJCwIZCl eCnldRDjXbWvk5fdORLjF YnyLN3sqZirI2EhkPR7RS Njb5a3Jc82T36vZ3GwhOA +CYFoeGN4cFH5 gV2fSsQmErN5XFnqO550N lMhuISbSgxep2nvm0edfF z9FeZ3PXIxjzMbkNnuMJL 6d1BxFp37B96g IHdpZHRoPSIxNSUiIHZhb Yotgb7gdM4kEn2+PGNvbC D6zLE4vG8uHlYpYfU3LGl mO014QpTghIZn Whamq0ryb8cmbVz4KdRdW SDnaaEpiDpfYMC3h4TbRf 68O6YrqZwac3UlOxx7ej3 7gEEkw1J9kJJ2 P3CrOPUrudwzyEWqgTlrY Q8lDUHvzvhyNILpvB8nTV BbW2i3YkHnAuS7HOuwY0X qdsT9WETdiMMy RKwoQVO6U14hx9I0BXAkA MPzWZB1cXJ0jG5jxSfmbf ogbGVmdDsgdmVydGljYWw yXKzgF320WNYq zRkpJCIuwF7eIEOvkSFlk SnkHT8aWTDawgmdBdCUWG gJVenPRznzIO6CLJjmKDo vdGQ+PHRkIHN0 oZuyBXyoCYWohV6aJFGuH 9c8VyCpZxT0FVusQ7PzTO KzsrjgBj11yV7eRnDaSaX 4PEigB8QktkM0 RFThfZVsFXpoUGI9L26bc 9T2WJIcENTaXAX0aQA0gV 1hbGlnbjogbGVmdDsgdmV ydGljYWwtYWxp D496ZLErvLkdDiNyEoHqD eD8WfA8H5IoHei3AUInnT bdQQ1mgLPuBZmsZz0xbUo qkDcmSJ5cANHj jffdYBVbqZ1pISShhSNct HstCR5rTFHtmheei103Tw PaAUK5VYDekYEoQ4GscB2 yOiAjMDAwMDAw Y1PngTYwVRarY987LGvsB aQ5IFQxerCzD5UhEKFykH xpTyD0p3W0Rp07PlSNHEB yczwvdGQ+PHRk ILD1cMrdHFssCFBefC8hL TDgM0l3AuQjReQ9ZNirD6 JdEGXzcicyHn88dQ9vYdQ rUmI0UBgdZ2Kt ycJ3EEZnjNYrIPglOHM3F 87dr0N2SQRqJYUhDHJ5dV X8kN7pmJcypdnyzJFpeKk gdmVydGljYWwt XWvoH637XOHgnRzsXaKoa WFsZTwvdGQ+KELxDCZ3mG doRSjbXBKywC1lAAYtS6e 7KqTsGrF5UWis C4KqDGYxsmwgYn57vI0xZ xNwDuU1VXewS6FwxfB2WN BycOHoNCcfVJJ3P99wa9P 9GYUiDPWxSFW1 jPX2mR3mrTputugwvGLhs DsgdmVydGljYWwtYWxpZ2 78COIvtPgoUjfjGlUNhj1 hNZ1xXqoviDZ+ VM82tu53L3XcAslsQwv0P PUqNXW3bXT3dA4dXXEtYI agr5F5uKX8Q7LgybNfis8 qk8ldDPBgSVod J46nsSSyw2T0XXIjwIU7M MNprZufVvPdzX14Epw+PG PeyVnza9ZmZtjps9hfx5d xwLr5HhFaDMTi krSqdAogGJJ1k3WfPi69D 29sIHdpZHRoPSIzMCUiIH OzaBwchv1wgN4aFr3+PGN tqXG9xFH7sN1v IsLhVgM1INatM095OgPcs RLkJmupi1lim8uznSq3Er WbWNStaqPtfAowVTJ2w0G tBz44I2IflQps e1OcRmx7jy97tSSvb4X4w NK3X6UwWIRzufznxKPovQ hoHE4rPNPelkwkEIRgkV1 zAPZhE3f2EdAd FgP1LEwiM0YvhsS7OBSrv KWhMCKgoZNAsL1zfeleb8 ialjhbVaDaFAGrZMw3RMq 0LWFsaWduOiBs AMW1OzO8WNG4pEIawT3yr MvjrddweF3vVhj+UGh5c2 qsfZUgAO1mhSK6JP30RS1 0fXKjf5K0qCS2 H5BoCSAgeddtpxcpkPK0O YAcSWPnnL52Lo8xvVziMc 2rRNTuQHJ2RHOgsWRqG9A laW6sBmNwVTBf IGTfA4VjwWAbDUttJ033J AejJsH0EOAjnuFiJ6XqSK GnlBgsOdZ1h0F8Gd0KYR7 4CY78KS68mLEm j7K2qKP0J8KyEUHnbjjgm ksfoYL1ZRPyNZFlwV82Wr 6jaZcrJv9fRZKoJBT5SHY wtAWcL4PffN1n QdLsVMErXNEmS8NnkUJnP OfiO212SHrxBuS3ZWKtev QgO4TeALDibSggSaN9f7X 1Jf7IGb70EO38 BF62vBGlw5G4cTO0E8MxZ GWsqvtdebkylXC6YZQxYJ HgnY89Rx8buDyyJr6gNFA qFQK5TEEnpYTv J1CaoF2uFnRqWIBcLHSmM 2IotXZuOIroM779FGfkEb Z1PTDqnaLrD9DwIBQlmWq cGsO0z8A3Ip6E FTrejkx1U1XpMbxnhTH+P L07QREnOV81mWYkoCZrc3 wyhKj5CcLfKHPcWGV2vGe aQUvdx5IyDCXo Y29s (more content not included)... Normal [facility] Vaginitis/Vaginosis, DNA Pro beon 11-09-2021 Taniya sp rRNA Probe Ql (Vag fld) Negative Invalid Interpretation Code Negative [facility] Comment on above: Performed By: #### 3 [id number] ####[facility] [address] [place] [address] G. vaginalis rRNA Probe Ql (Genital specimen) Positive Abnormal Negative [facility] Comment on above: Performed By: #### 3 [id number] ####[facility] [address] [place] [address] T. vaginalis rRNA Probe Ql (Genital specimen) Negative Invalid Interpretation Code Negative [facility] Comment on above: Result Comment: Perf ormed at: [facility] [address] [id number] PhD Priya Govea Performed By: #### 3 [id number] ####[facility] [address] [place] [address] Ambulatory Visit Summaryon 0 11-07-2021 Ambulatory Visit Summary WYATT HARRINGTON [place] :1975 Visit Date:11/07/2021 Ambulatory Visit Instructions Your Diagnosis Dysuria Vaginal odor Tests Performed Urinls Dip Stick Non-Auto w/ Micrscpy POC 74212 Your Care Team Attending Physician - Misty NELOSN CNP Primary Care Physician - ALISHA SELLERS MD This Is Your Medications List Contact prescribing physician if questions or concerns acetaminophen-hydroco done (Logan 325 mg-5 mg oral tablet) albuterol (Ventolin [...] Much When Why Instructions Unchanged acetaminophen-hydroco done (Logan 325 mg-5 mg oral tablet) 1 Tablets [...] Urinls Dip Stick Non-Auto w/ Micrscpy POC 78007 (11/07/2021) Bilirubin Urine Dipstick - Negative Blood Urine Dipstick - Negative Glucose Urine Dipstick - Negative Ketones Urine Dipstick - Negative Leukocytes Urine Dipstick - Negative Nitrite Urine Dipstick - Negative Protein Urine Dipstick - Negative Specific [place] Urine Dipstick - 1.010 Urine Appearance Urine Dipstick - Clear Urine Color Urine Dipstick - Yellow Urobilinogen Urine Dipstick - Normal 0.2-1 EU/dl pH Urine Dipstick - 6 Allergies No Known Allergies Problems Ongoing - Any problem that you are currently receiving treatment for. ADD (attention deficit disorder) Anxiety Normal [facility] Medicine Office/Clini c Noteon 11-07-2021 Family Medicine [...] flank pain, or CVA tenderness with percussion GRAPE PRUNER: Vaginal canal without any inflammation or edema. [...] Urinls Dip Stick Non-Auto w/ Micrscpy POC 51231 Vaginitis/Vaginosis, DNA Probe 2. Vaginal odor (N89.8: [...] # 14 tab(s), Refills(s) 0, Pharmacy: [facility] [address], 156, cm, 11/07/21 14:59:00 EDT, Height/Length Dosing, 49.8, kg, 11/07/21 14:59:00 EDT, Weight Dosing Chlamydia/Gonococcus, JACEY Vaginitis/Vaginosis, DNA Probe Follow-up With When Contact Information ALISHA SELLERS MD, [address] [address]- Additional Instructions: Patient Education Dysuria Problem List/Past [...] Tab, 500 mg= 1 tab(s), Oral, q12hr Logan 325 mg-5 mg oral tablet, 1 tab(s), [...] Protein Urine Dipstick: Negative (11/07/21 14:48:00) Specific [place] Urine Di (more content not included)... Normal [facility] Comment on above: Result Comment: Elec tronically Signed By: Misty NELSON CNP.sonam\Date and Time Signed: 11/07/21 15:26 EDT Patient [...] may irritate the prostate. Medicines ? Take [id number] and prescription medicines only as told by [...] 02/10/2005 Document Revised: 04/27/2018 Document Reviewed: 03/01/2018 [employer] Patient Education ? 2019 [employer] Normal [facility] XR Spine Lumbar Complete w/F arjun AND [place] 07-07-2021 XR Spine Lumbar Complete w/Flex AND [...] LISBETH DEL TORO on 07/08/2021 0946 Normal [facility] [employer] Vital Signs Date Time Vital Sign Value Performing Clinician Facility 09-12-2023 10:26-0400 Body height 160.02 cm [facility] 09-12-2023 10:26-0400 Body mass index (BMI) [Ratio] 21.8 kg/m2 [facility] 09-12-2023 10:26-0400 Body weight 55.9 kg [facility] 09-12-2023 10:26-0400 Diastolic blood pressure 54 mm[Hg] [facility] 09-12-2023 10:26-0400 Heart rate 75 /min [facility] 09-12-2023 10:26-0400 Systolic blood pressure 79 mm[Hg] [facility] 06-13-2022 10:30-0500 Body height 160.02 cm Alisha Sellers Other [facility] Other 06-13-2022 10:30-0500 Body mass index (BMI) [Ratio] 20.55 kg/m2 Alisha Sellers Other [facility] Other 06-13-2022 10:30-0500 Body weight 52.62 kg Alisha Sellers Other [facility] Other 06-13-2022 10:30-0500 Diastolic blood pressure 80 mm[Hg] Alisha Sellers Other [facility] Other 06-13-2022 10:30-0500 SaO2% (BldA) [Mass fraction] 98 % Alisha Sellers Other [facility] Other 06-13-2022 10:30-0500 Systolic blood pressure 122 mm[Hg] Alisha Verito Other [facility] Other 12-29-2021 20:10-0400 Body temperature 99.14 [degF] Bernabe Rafita [facility] 12-29-2021 20:10-0400 Diastolic blood pressure 77 mm[Hg] Bernabe Rafita [facility] 12-29-2021 20:10-0400 Heart rate 105 /min Bernabe Rafita [facility] 12-29-2021 20:10-0400 Respiratory rate 16 /min Bernabe Rafita [facility] 12-29-2021 20:10-0400 SaO2% (BldA) [Mass fraction] 99 % Bernabe Rafita [facility] 12-29-2021 20:10-0400 Systolic blood pressure 109 mm[Hg] Bernabe Rafita [facility] 11-07-2021 14:55-0400 Body temperature 97.52 [degF] Misty NELSON [facility] 11-07-2021 14:55-0400 Diastolic blood pressure 60 mm[Hg] Misty NELSON [facility] 11-07-2021 14:55-0400 Heart rate 76 /min Misty NELSON [facility] 11-07-2021 14:55-0400 SaO2% (BldA) [Mass fraction] 99 % Misty NELSON [facility] 11-07-2021 14:55-0400 Systolic blood pressure 100 mm[Hg] Misty NELSON [facility] Encounters Encounter Date Encounter Type Care Provider Facility Start: 12-09-2023 End: 12-09-2023 Patient encounter procedure MD Alisha Sellers Work Phone: [facility] Work Phone: Start: 12-09-2023 End: 12-09-2023 ambulatory MD Alisha Sellers Work Phone: [facility] Work Phone: Start: 10-12-2023 End: 10-12-2023 ambulatory MD Alisha Sellers Work Phone: [facility] Work Phone: Start: 10-12-2023 End: 10-12-2023 Patient encounter procedure MD Alisha Sellers Work Phone: [facility] Work Phone: Start: 10-04-2023 End: 10-04-2023 Patient encounter procedure MD Alisha Sellers Work Phone: [facility] Work Phone: Start: 10-04-2023 End: 10-04-2023 ambulatory MD Alisha Sellers Work Phone: [facility] Work Phone: Start: 10-04-2023 Encounter for genera l adult medical examination without abnormal findings Natalia Cedillo [facility] Start: 09-12-2023 End: 09-12-2023 ambulatory [facility] Work Phone: Start: 09-12-2023 End: 09-12-2023 Patient encounter procedure [facility] Work Phone: Start: 09-07-2023 Non-patient / Non-visit [facility] Work Phone: Start: 08-17-2023 End: 08-17-2023 ambulatory ANGEL SILVERMANEDITH Not Available Start: 08-01-2023 End: 08-01-2023 ambulatory HANNAH LUU Not Available Start: 07-20-2023 Non-patient / Non-visit [facility] [employer] Work Phone: Start: 03-24-2023 End: 03-24-2023 ambulatory Alisha Sellers Other [facility] Other Start: 03-24-2023 Telephone encounter Alisha Sellers [facility] Start: 12-26-2022 End: 12-26-2022 ambulatory Kedar Diaz Other [facility] Other Start: 12-26-2022 Telephone [address] Kedar Diaz [facility] Start: 12-03-2022 End: 12-03-2022 ambulatory MD Alisha Sellers Work Phone: [facility] Work Phone: Start: 12-03-2022 End: 12-03-2022 Patient encounter procedure MD Alisha Sellers Work Phone: [facility] Work Phone: Start: 09-26-2022 End: 09-26-2022 ambulatory Alisha Sellers Other [facility] Other Start: 09-26-2022 Telephone encounter Alisha Sellers [facility] Start: 06-29-2022 End: 06-30-2022 ambulatory Sharan Asher Facility:[facility] Start: 06-28-2022 End: 06-28-2022 ambulatory Alisha Sellers Other [facility] Other Start: 06-28-2022 Telephone encounter Alisha Sellers [facility] Start: 06-17-2022 End: 06-17-2022 ambulatory Alisha Sellers Other [facility] Other Start: 06-17-2022 Telephone encounter Alisha Sellers [facility] Start: 06-14-2022 End: 06-15-[address] ALISHA SELLERS Facility: Start: 06-13-2022 Encounter for genera l adult medical examination without abnormal findings Alisha Sellers [facility] Start: 06-13-2022 Office outpatient vi sit 15 minutes Alisha Sellers [facility] Start: 06-13-2022 End: 06-14-[address] ALISHA SELLERS Facility: Start: 12-29-2021 End: 12-29-2021 Emergency department patient visit Bernabe Eller Facility:[facility] Start: 12-29-2021 End: 12-29-2021 Emergency department patient visit Bernabe Eller [facility] Start: 11-16-2021 End: 11-17-2021 ambulatory YOUSUF WOLFF Facility: Start: 11-07-2021 ambulatory Bernabe Eller Facility:[facility] Start: 11-07-2021 End: 11-08-2021 ambulatory Misty NELSON Facility:[facility] Start: 11-07-2021 End: 11-07-2021 Lab Drop off Misty NELSON [facility] Start: 11-07-2021 End: 11-07-2021 Patient encounter procedure Misty NELSON [facility] Start: 04-14-2019 Gynecological examin ation normal Kedar Diaz Other [facility] Other Procedures Date Procedure Procedure Detail Performing Clinician Start: 07-27-2018 Breast structure (yu dy structure) Misty NELSON Start: 05-01-2017 Viral screening Artemio Diaz Other Start: 02-26-2015 Hysterectomy Misty GEE Start: 09-27-2006 visit Artemio Diaz Other Cosmetic surgery Alisha ramon Other Tuberculosis screening Ben Diaz Other Plan of Treatment Date Care Activity Detail Author Start: 12-09-2023 MG Breast - bilatera l Screening [facility] Start: 12-09-2023 Screening mammograph y of bilateral breasts MM screening mammo BI w/CAD [facility] Start: 10-04-2023 [facility] Start: 12-03-2022 Screening mammograph y of bilateral breasts MM screening mammo BI w/CAD [facility] Immunizations Immunization Date Immunization Notes Care Provider Darline hernández 09-27-2019 hepatitis B vaccine, adult dosage Kedar Diaz Other [facility] 12-21-2018 tetanus toxoid, redu em diphtheria toxoid, and acellular pertussis vaccine, adsorbed Misty OMAR [facility] Payers Date Payer Category Payer Self-pay [id number] 2022 Unknown [id number] 2016 Unknown [id number] 2. [id number] 1975 Unknown [id number] 2.16.84 0.1.006260.3.579.2.593 1975 Unknown [id number] 2.16.84 0.1.146937.3.579.2.593 1975 Unknown [id number] 2.16.84 0.1.530961.3.579.2.593 1975 Unknown [id number] 2.16.8 40.1.099159.3.579.2.727 1975 Unknown [id number] 2.16.8 40.1.538310.3.579.2.727 1975 Unknown [id number] 2.16.8 40.1.463747.3.579.2.727 1975 Unknown [id number] 2.16.8 40.1.198971.3.579.2.727 1975 Unknown [id number] 2.16.8 40.1.012616.3.579.2.727 1975 Unknown [id number] 2.16.84 0.1.392014.3.579.2.1259 1975 Unknown [id number] 2.16.84 0.1.182612.3.579.2.1259 1959 Unknown [id number] Unknown [id number] 2.16.8 40.1.434478.3.579.2.531 Unknown [id number] 2.16.8 40.1.747718.3.579.2.531 Unknown [id number] 2.16.8 40.1.823721.3.579.2.531 Social History Date Type Detail Facility Start: 11-07-2021 End: 05-25-2023 Tobacco smoking status Ex-smoker (finding) [facility] Tobacco smoking status Never [facility] Sex Assigned At Female [facility] Start: 1975 Sex Assigned At Female [facility] Functional Status Date Assessment Result Facility 12-29-2021 Functional Status Yes [facility] 11-07-2021 Functional Status N/A [facility] Clinical Notes 11-07-2021 to 12-26-2022 Note Date & Type Note Facility 12-26-2022 Evaluation note Encounter Date Diagnosis Assessment Notes Nov, Anxiety (ICD-10 - F41.9) [facility] Other 05-01-2023 Evaluation note* Encounter Date Diagnosis Assessment Notes Treatment Notes Treatment Clinical Notes September, Anxiety (ICD-10 - F41.9) [facility] Other 01-16-2023 Evaluation note* Encounter Date Diagnosis [...] of medication and no changes are needed [facility] Other 08-03-2022 Hospital Discharge instructions Patient Education 12/29/2021 21:35:07 Sinusitis, Adult, Juaf-xs-Zsip Sinusitis, Adult Sinusitis is soreness and swelling [...] at home: Medicines Take, use, or apply syqn-net-coponfy and prescription medicines only as told by [...] is no soap and water, 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 Do not smoke. Avoid being around people [...] 10/31/2008 Document Revised: 10/15/2018 Document Reviewed: 10/15/2018 [employer] Patient Education 2020 [employer] 12/29/2021 21:35:07 Pharyngitis, Zgkl-pc-Vems Pharyngitis Pharyngitis is a sore throat (pharynx). This is when there is redness, pain, and swelling in your throat. Most of the time, this condition gets better on its own. In some cases, you may need medicine. Follow these instructions at home: Take yfkn-zpc-pikeapg and prescription medicines only as told by [...] 10/31/2008 Document Revised: 04/27/2018 Document Reviewed: 06/20/2017 [employer] Patient Education 2020 [employer] Follow Up Care 12/29/2021 20:07:17 With:Call for test results Address:Unknown When: Unknown With:ALISHA SELLERS Address: [address] [place], [place] [id number] [facility] (1) When:01/01/2022 21:34:23 only if needed [facility]08-03-2022 Evaluation + Plan noteExtracted from: Title:ED Note Author:Bernabe Eller MD Date: 2 1. Acute sinusitis (J01.90: Acute sinusitis, unspecified) 2. Acute pharyngitis (J02.9: Acute pharyngitis, unspecified) Orders: azithromycin, 250 mg, Oral, As Directed, # 6 tab(s), Refills(s) 0, Pharmacy: [facility] #[id number], 155, cm, 12/29/21 20:14:00 EDT, Height/Length Dosing, 49, kg, 12/29/21 20:14:00 EDT, Weight Dosing guaifenesin-pseudoephedrine, 1 tab(s), Oral, q12hr for 7 day(s), 14 tab(s), Refill(s) 0, [facility] #[id number], 155, cm, 12/29/21 20:14:00 EDT, Height/Length Dosing, 49, kg, 12/29/21 20:14:00 EDT, Weight Dosing Rapid COVID Antigen ([facility]) Rapid Strep w/rfx Diagnostic Tests Pending * Group A Strep by PCR 12/29/21 [facility]06-21-2022 NotePROCEDURE: XR FOOT RT MIN 3 VIEWS COMPARISON: None. HISTORY: Pain in right foot FINDINGS: BONES:No acute fracture or dislocation. Mild hallux valgus. Mild osteoarthropathy of the first metatarsal-phalangeal joint SOFT TISSUES:Negative. No visible soft tissue swelling. EFFUSION:None visible. OTHER: Negative. IMPRESSION: No acute abnormality Electronically authenticated by: FILIBERTO CHASE Date: 2021-11-16 21:28[facility]06-12-2022 Hospital Discharge instructions Patient Education 11/07/2021 15:26:07 [...] alcohol may irritate the prostate. Medicines Take eviz-tzw-qsjowac and prescription medicines only as told by [...] 02/10/2005 Document Revised: 04/27/2018 Document Reviewed: 03/01/2018 [employer] Patient Education 2020 [employer]. Follow Up Care 11/07/2021 14:04:03 With:ALISHA SELLERS MD, FAM Address: [address] [place] [phone] When: Unknown [facility] 06-12-2022 Evaluation + Plan note Diagnostic Tests Pending * Chlamydia/Gonococcus, JACEY 11/07/21 * Urine Culture 11/07/21 * Vaginitis/Vaginosis, DNA Probe 11/07/21 [facility] No data available for this section [facility] Evaluation [facility]No [facility] [place] Other Evaluation noteNo assessment information available [facility] Work Phone: Evaluation note* Diagnosis Onset Date Resolution Status Acute hemorrhoid acute Anxiety acute Bunion of great toe acute [facility] Work Phone: History general Narrative - [...] History see surgical history Hospitalization History CHILD [facility] [place] Other Hospital Discharge instructions No data available for this section [facility] No data available for this section [facility] Summary Purpose Family History No Family History Records Found Relationship Condition Age at Onset Recorded Date/T edel father Hypercholesterolemia Unknown Heart disease Unknown Not Specified Family history of mental disorder Unknow n Hypertension Unknown Relationship Condition Age at Onset Recorded Date/T edel father Hypercholesterolemia Unknown Heart disease Unknown mother Family history of mental disorder Unknown Hypertension Unknown Advance Directives No Advanced Directives Records Found Advance Directive Response Recorded Date/ Time Advance Directives No March 27, 2017 2:17pm Chief Complaint and Reason for Visit Chief Complaint Z12.31 Chief Complaint Amb Documentation medication check Chief Complaint Amb Documentation medication check [facility] Reason for Visit Acute hemorrhoid Anxiety Bunion of great toe Chief Complaint medication check Z00.00 [facility] - Z00.00 Reason for Visit Acute hemorrhoid Anxiety Bunion of great toe Chief Complaint medication check Z00.00 [facility] - Z00.00 Screening Reason for Visit Acute hemorrhoid Anxiety Bunion of great toe Additional Source Comments INFORMATION SOURCE (unrecogn ized section and content) DATE CREATED AUTHOR 07/09/2021 [facility] dical Specialist DATE CREATED AUTHOR AUTHOR'S ORGANIZ ATION 06/16/2022 [facility] DATE CREATED AUTHOR AUTHOR'S ORGANIZ ATION 07/02/2022 [facility] DATE CREATED AUTHOR AUTHOR'S ORGANIZ ATION 08/18/2023 [facility] dical Specialists EPIC DATE CREATED AUTHOR AUTHOR'S ORGANIZ ATION 12/14/2023 [facility] ys[facility] Group Care Team (unrecognized sect ion and content) Team Status: Active Member Role Status Dates Alisha Sellers MD Primary Care Provider Active Team Status: Inactive Member Role Status Dates Alisha Sellers MD Primary Care Provide r, Attending Provider Active Start: September 12, 2023 End: September 12, 2023 Team Status: Inactive Member Role Status Dates Alisha Sellers MD Primary Care Provider Active Start: October 04, 2023 End: October 04, 2023 Natalia Cedillo APRN Attending Provider Active Start: October 04, 2023 End: October 04, 2023 Team Status: Inactive Member Role Status Dates Alisha Sellers MD Primary Care Provider Active Start: October 12, 2023 End: October 12, 2023 Natalia Cedillo APRN Attending Provider Active Start: October 12, 2023 End: October 12, 2023 Team Status: Inactive Member Role Status Dates Alisha Sellers MD Primary Care Provider Active Start: December 09, 2023 End: December 09, 2023 Referral Self Attending Provider Active Start: Macarena guerra 2023 End: December 09, 2023 Hannah Luu DO Referring Provider Active S tart: December 09, 2023 End: December 09, 2023 Team Status: Active Member Role Status [...] Active Hannah Luu DO Attending Provider Active REASON FOR VISIT (unrecogniz ed section and [...] BE BASED ON THE PRIMARY CLINICAL RECORDS. [employer] provides no warranty or guarantee of the accuracy or completeness of information in this document.
== END 2024-02-27 08:46 | disposition home or self-care (01) ==
LOC: EC 08:45
PROVIDERS: PCP Family Medicine; Visit Provider Podiatrist Foot & Ankle Surgery
DX: M79.671 Pain in right foot (principal); M24.674 Ankylosis, right foot
CPT/HCPCS: 73630

== ENCOUNTER 2024-06-13 09:14 | Outpatient (OUT) | payer OTHER, SELFPAY ==
--- NOTE | 2024-06-13 09:22 | XR_ITS ---
The [address] [address] Patient Name: WYATT GONZALEZ MRN: [id number] date: 1975 Sex: F Assigned Patient Location: [facility] Current Patient Location: [facility] Accession/Order Number: [id number] Exam Date: 06/13/2024 09:28 Report Date: 06/13/2024 10:52 At the request of: CHYNA SELLERS Procedure: XR cervical spine 5V EXAMINATION: XR cervical spine 5V HISTORY: Cervicalgia COMPARISON: No relevant comparison available. FINDINGS: BONES: Normal alignment with no acute fracture or spondylolisthesis. Mild spondylosis and facet osteoarthropathy DISC SPACES: Normal. No significant disc height narrowing, subluxation, or endplate abnormality. PARASPINOUS: Negative. No paraspinous abnormality is seen. OTHER: Negative. XR/XR cervical spine 5V IMPRESSION: Mild degenerative changes Electronically authenticated by: FILIBERTO CHASE Date: 06/13/2024 10:52
--- OUTSIDE RECORDS SUMMARY | 2024-06-13 09:37 | XMS_ITS | CCD ---
Author Organization [facility] CliniSyid Care Team Providers Care Archives Specialist Name Role Phone ALISHA SELLERS Primary Care Physician VERITO, DR ALISHA Carpio Admitting Unavailable SELLERS, DR ALISHA Carpio Attending Unavailable VERITO, DR ALISHA Carpio Primary Care Unavailable VERITO, DR ALISHA Carpio Consulting Unavailable YOUSUF WOLFF Admitting Unavailable YOUSUF WOLFF Attending Unavailable VERITO, DR ALISHA Carpio Primary Care Unavailable RENA, DR FILIBERTO Prince Consulting Unavailable YOUSUF WOLFF Consulting Unavailable VERITO, DR ALISHA Carpio Admitting Unavailable VERITO, DR ALISHA Carpio Attending Unavailable VERITO, DR ALISHA Carpio Primary Care Unavailable SELLERS, DR ALISHA Carpio Consulting Unavailable Bernabe Eller Attending Unavailable Misty NELSON Attending Unavailable Sharan Asher Attending Unavailable Misty NELSON Attending Unavailable Misty NELSON Admitting Unavailable Alisha Sellers Unavailable MD Alisha Sellers Primary Care Provider DO Hannah Luu Attending Provider Kedar Diaz Unavailable HANNAH LUU Attending Unavailable ANGEL RIZO Attending Unavailable MD Alisha Sellers Primary Care Provider KIRAN Cedillo Attending Provider Self, Referral Attending [...] physicia Propensity to adverse reactions 4 Comment:Done [employer] Other (2 sources) NONE KNOWN ALLERGIES Propensity to adverse reactions 4 Unknown [employer] Other (2 sources) Allergies Reconciled Propensity to adverse reactions Unknown [employer] Other Medications Current Medications Medication Drug Class(es) Dates Sig (Normalized) Sig (Original) acetaminophen 325 mg / HYDROcodone bitartrate 5 mg oral tablet (3 sources) Opioid Agonist Start: 11-03-2019 [place] 325 mg-5 mg oral tablet 1 tab(s), Oral, q4hr for pain, 12 tab(s), Refill(s) 0 Start Date: 11/03/19 Status: Ordered alendronic acid 70 mg oral tablet (5 sources) Bisphosphonate Start: 09-12-2023 take 70 mg [...] Directed, # 6 tab(s), Refills(s) 0, Pharmacy: [facility] #[id number], 155, cm, 12/29/21 20:14:00 EDT, Height/Length Dosing, 49, kg, 12/29/21 20:14:00 EDT, Weight Dosing Start Date: 12/29/21 Status: Ordered brompheniramine maleate 0.4 mg/ml / dextromethorphan hydrobromide 2 mg/ml / pseudoephedrine hydrochloride 6 mg/ml oral solution (3 sources) alpha-Adrenergic Agonist, Uncompetitive O-qcccfz-J-aspartat e Receptor Antagonist, Sigma-1 Agonist Start: 03-15-2019 take 10 mL by mouth four times daily Bromfed DM oral syrup 10 mL, Oral, QID for cold symptoms, 200 mL, Refill(s) 0, [facility] #[id number] Start Date: 03/15/19 Status: Ordered buPROPion hydrochloride 75 mg oral tablet (9 sources) Aminoketone Start: 11-07-2021 buPROPion 75 mg Tab Refills(s) 0 Start Date: 11/07/21 Status: Ordered busPIRone hydrochloride 10 mg oral tablet (6 sources) Start: 03-26-2024 take 10 mg by mouth twice daily Buspirone Active 10 MG PO Twice daily March 26, 2024 9:00am Start: 09-12-2023 End: 03-26-2024 take 5 mg by mouth twice daily Buspirone Discontinued 5 MG PO Twice daily September 12, 2023 12:00am March 26, 2024 9:02am estrogens, conjugated (correction) 0.625 mg oral tablet (17 sources) Estrogen Start: 09-11-2023 take 1 tablet by mouth once daily Conjugated Estrogens (Premarin) 0.625 mg tablet Active 1 TAB PO Daily September 11, 2023 12:00am [employer] tablet Orally ONCE A DAY; Note: Source Status: Taking; Provider: Verito Brito ( ) Start: 03-15-2019 Premarin 0.625 mg Tab Refills(s) 0 Start Date: 11/07/21 Status: Ordered metroNIDAZOLE 500 mg oral tablet (2 sources) Nitroimidazole Antimicrobial Start: 11-07-2021 End: 11-14-2021 take 1 tablet by mouth every twelve hours Flagyl 500 mg Tab 500 mg = 1 tab(s), Oral, q12hr, X 7 day(s), # 14 tab(s), Refills(s) 0, [facility]acy: [facility], 156, cm, 11/07/21 14:59:00 EDT, Height/Length Dosing, 49.8, kg, 11/07/21 14:59:00 EDT, Weight Dosing Start Date: 11/07/21 Stop Date: 11/14/21 Status: Ordered Mucinex D Max Strength oral tablet, extended release (1 source) Start: 12-29-2021 End: 01-05-2022 Mucinex D Max Strength oral tablet, extended release 1 tab(s), Oral, q12hr for 7 day(s), 14 tab(s), Refill(s) [facility] #[id number], 155, cm, 12/29/21 20:14:00 EDT, Height/Length Dosing, 49, kg, 12/29/21 20:14:00 EDT, Weight Dosing Start Date: 12/29/21 Stop Date: 01/05/22 Status: Ordered SUMAtriptan 50 mg oral tablet (5 sources) Serotonin-1b and Serotonin-1d Receptor Agonist Start: [...] Inhalation, Once for wheezing, 18 gram, [facility](s) [id number] Start Date: 03/15/19 Status: Ordered Completed/Discontinued Medications Medication Drug Class(es) Dates Sig (Normalized) Sig (Original) cefuroxime 500 mg oral tablet (6 sources) Cephalosporin Antibacterial Start: 03-23-2016 take 1 tablet by mouth twice daily Ceftin 500 MG 1 tablet Orally Twice a day for 10 day(s) Feb, Not-Taking clonazePAM 0.5 mg oral tablet (20 sources) Benzodiazepine Start: 10-20-2023 End: 03-26-2024 take 0.5 mg by mouth twice daily Clonazepam Discontinued 0.5 MG PO Twice daily February 13, 2024 8:38am March 12, 2024 2:27pm Start: 07-20-2023 End: 10-20-2023 take 1 mg by mouth once daily Clonazepam Discontinued 1 MG PO Daily September 19, 2023 2:56pm October 20, 2023 11:33am Start: 03-24-2023 take 1 tablet by kevin th once daily clonazePAM 1 MG TAKE 1 TABLET BY MOUTH EVERY DAY for 30 Feb, Active Start: 12-26-2022 clonazePAM 1 M [...] Fluconazole 100 MG 1 tablet Orally Active hydrocortisone 25 mg/ml topical cream (18 sources) Corticosteroid Start: 11-09-2023 End: 03-26-2024 Hydrocortisone Discontinued 0 .ROUTE .COMPLEX 28.35 November 09, 2023 2:58pm March 26, 2024 8:14am APPLY ONCE EXTERNALLY ONCE A DAY Start: 09-11-2023 End: 11-09-2023 Hydrocortisone Discontinued 1 APPLIC TOPICAL Daily September 12, 2023 11:05am November 09, 2023 2:58pm FreeTextSi application Externally Once a day; Note: Source Status: Taking; Provider: Verito Brito ( ) Hydrocortisone 2 .5 % 1 application Externally Once a day Active venlafaxine 75 mg oral tablet (6 sources) Serotonin and Norepinephrine Reuptake Inhibitor take 1 tablet by mouth once daily at mealtime Effexor 75 MG 1 tablet with food Orally ONCE A DAY Not-Taking Problems Active Problems Problem Classification Problem Date Documented Date Episodic/Chronic Acquired foot deformities (8 sources) Acquired hallux valgus; Translations: [Hallux valgus (acquired), right foot] Chronic Acquired foot deformities (7 sources) Bunion; Translations: [Bunion of unspecified foot] [...] Dysuria; Translations: [Dysuria] Onset: 11-07-2021 Episodic Hemorrhoids (15 sources) Internal hemorrhoids; Translations: [Other hemorrhoids] 09-12-2023 [...] conditions (not mental disorders or infectious disease) (3 sources) Encounter for screening mammogram for malignant neoplasm of breast; Translations: [Patient encounter status] Onset: 12-09-2023 03-26-2024 Episodic Other upper respiratory infections (8 sources) [...] n 12-11-2023 MM screening mammo BI w/CAD [facility] [place] [address] Mammography Report Signed Patient: Wyatt Harrington MR#: [id number] : 1975 Acct:[id number] Age/Sex: 48 / F ADM Date: 12/09/23 Loc: [place] Room: Type: [facility] Attending Dr: Referral Self Copies to: DO [...] Dileep Joel M.D.12/11/2023 3:06 PM Dictation Location: [facility] Transcribed By: SHELLEY 12/11/23 1506 Dictated By: Dileep Joel II, MD 12/11/23 1502 Signed By: 12/11/23 1506 Normal [facility] Alanine aminotransferase [En zymatic activity/volume] in Serum or PlasmaOrdered By: Natalia Cedillo on 10-04-2023 ALT [Catalytic activity/Vol] 18 U/L Normal 7-52 [facility] Comment on above: Performed By: #### N ICOTINE QUAL #### [facility] , #### TSH3, CBCNO, CMP wRFX A1C, LIPID #### [facility] [address] Albumin [Mass/volume] in Ser um or Plasma by Bromocresol green (BCG) dye binding methoOrdered By: Natalia Cedillo on 10-04-2023 Albumin BCG dye [Mass/Vol] 4.8 g/dL 3.5-5.7 [facility] Alkaline phosphatase [Enzyma tic activity/volume] in Serum or PlasmaOrdered By: Natalia Cedillo on 10-04-2023 ALP [Catalytic activity/Vol] 48 U/L Normal 34-104 [facility] Comment on above: Performed By: #### N ICOTINE QUAL #### [facility] , #### TSH3, CBCNO, CMP wRFX A1C, LIPID #### [address] Aspartate aminotransferase [ Enzymatic activity/volume] in Serum or PlasmaOrdered By: Natalia Cedillo on 10-04-2023 AST [Catalytic activity/Vol] 20 U/L Normal 13-39 [facility] Comment on above: Performed By: #### N ICOTINE QUAL #### [facility] , #### TSH3, CBCNO, CMP wRFX A1C, LIPID #### [facility] [address] [place] [address] Bilirubin.total [Mass/volume ] in Serum or PlasmaOrdered By: Natalia Cedillo on 10-04-2023 Bilirubin [Mass/Vol] 0.6 mg/dL Normal 0.3-1.0 [facility] Comment on above: Performed By: #### N ICOTINE QUAL #### [facility] , #### TSH3, CBCNO, CMP wRFX A1C, LIPID #### [facility] [address] [place] [address] CMP with reflex to A1Con Albumin [Mass/Vol] 4.8 g/dL Normal 3.5-5.7 [facility] Comment on above: Performed By: #### N ICOTINE QUAL #### [facility] , #### TSH3, CBCNO, CMP wRFX A1C, LIPID #### [facility] [address] [place] [address] [place] GFR/1.73 sq M.predicted MDRD (S/P/Bld) [Vol rate/Area] mL/min/{1.73_m2} Normal [facility] Comment on above: Performed By: #### N ICOTINE QUAL #### [facility] , #### TSH3, CBCNO, CMP wRFX A1C, LIPID #### [facility] [address] [place] [address] [place] Calcium [Mass/volume] in Ser um or PlasmaOrdered By: Natalia Cedillo on 10-04-2023 Calcium [Mass/Vol] 10.0 mg/dL Normal 8.6-10.3 [facility] Comment on above: Performed By: #### N ICOTINE QUAL #### [facility] , #### TSH3, CBCNO, CMP wRFX A1C, LIPID #### [facility] [address] [place] [address] [place] Carbon dioxide, total [Moles /volume] in Serum or PlasmaOrdered By: Natalia Cedillo on 10-04-2023 CO2 [Moles/Vol] 29.6 mmol/L Normal 21.0-31.0 [facility] Comment on above: Performed By: #### N ICOTINE QUAL #### [facility] , #### TSH3, CBCNO, CMP wRFX A1C, LIPID #### [facility] [address] [place] [address] [place] Chloride [Moles/volume] in S nahed or PlasmaOrdered By: Natalia Cedillo on 10-04-2023 Chloride [Moles/Vol] 103 mmol/L Normal 98-107 [facility] Comment on above: Performed By: #### N ICOTINE QUAL #### [facility] , #### TSH3, CBCNO, CMP wRFX A1C, LIPID #### [facility] [address] [place] [address] [place] Cholesterol [Mass/volume] in Serum or PlasmaOrdered By: Natalia Cedillo on 10-04-2023 Cholesterol [Mass/Vol] 252 mg/dL High 140-200 [facility] Comment on above: Chol less than 200 m g/dl low riskChol 201-239 mg/dl borderline riskChol 240 mg/dl and greater high risk Result Comment: Chol less than 200 mg/dl low risk Chol 201-239 mg/dl borderline risk Chol 240 mg/dl and greater high risk Performed By: #### N ICOTINE QUAL #### [facility] , #### TSH3, CBCNO, CMP wRFX A1C, LIPID #### [facility] [address] Cholesterol in LDL Calc [Mas s/Vol]Ordered By: Natalia Cedillo on 10-04-2023 Cholesterol in LDL [Mass/Vol] 133 mg/dL High 0-100 [facility] Comment on above: LDL ATP III CLASSIFI CATIONLDL less than 100 mg/dL OptimalLDL 100-129 mg/dL Near or above optimalLDL 130-159 mg/dL Borderline highLDL 160-189 mg/dL HighLDL greater than 189 mg/dL Very high Cholesterol in VLDL Calc [Ma ss/Vol]Ordered By: Natalia Cedillo on 10-04-2023 Cholesterol in VLDL [Mass/Vol] 30 mg/dL [facility] Creatinine [Mass/volume] in Serum or PlasmaOrdered By: Natalia Cedillo on 10-04-2023 Creatinine [Mass/Vol] 0.86 mg/dL Normal 0.60-1.20 [facility] Comment on above: Performed By: #### N ICOTINE QUAL #### [facility] , #### TSH3, CBCNO, CMP wRFX A1C, LIPID #### [facility] [address] [place] [address] [place] Erythrocyte distribution wid th [Ratio] by Automated countOrdered By: Natalia Cedillo on 10-04-2023 Erythrocyte distribution width (RBC) [Ratio] 12.8 % Normal 11.9-15.3 [facility] Comment on above: Performed By: #### N ICOTINE QUAL #### [facility] , #### TSH3, CBCNO, CMP wRFX A1C, LIPID #### [facility] [address] [place] [address] [place] Erythrocytes [#/volume] in B lood by Automated countOrdered By: Natalia Cedillo on 10-04-2023 RBC (Bld) [#/Vol] 4.56 10*6/uL Normal 3.60-5.00 [facility] Comment on above: Performed By: #### N ICOTINE QUAL #### [facility] , #### TSH3, CBCNO, CMP wRFX A1C, LIPID #### [address] Glucose [Mass/volume] in Ser um or PlasmaOrdered By: Natalia Cedillo on 10-04-2023 Glucose [Mass/Vol] 85 mg/dL Normal 70-100 [facility] Comment on above: Performed By: #### N ICOTINE QUAL #### [facility] , #### TSH3, CBCNO, CMP wRFX A1C, LIPID #### [facility] [address] [place] [address] [place] Hematocrit [Volume Fraction] of Blood by Automated countOrdered By: Natalia Cedillo on 10-04-2023 Hematocrit (Bld) [Volume fraction] 39.5 % Normal 34.0-46.4 [facility] Comment on above: Performed By: #### N ICOTINE QUAL #### [facility] , #### TSH3, CBCNO, CMP wRFX A1C, LIPID #### [facility] [address] [place] [address] [place] Hemoglobin [Mass/volume] in BloodOrdered By: Natalia Cedillo on 10-04-2023 Hemoglobin (Bld) [Mass/Vol] 13.2 g/dL Normal 11.8-15.4 [facility] Comment on above: Performed By: #### N ICOTINE QUAL #### [facility] , #### TSH3, CBCNO, CMP wRFX A1C, LIPID #### [facility] [address] [place] [address] Hemogram CBC Without Diffon 10-04-2023 Mean Corpuscular HGB Conc 33.4 g/dL Normal 32.0-35.0 [facility] Comment on above: Performed By: #### N ICOTINE QUAL #### [facility] , #### TSH3, CBCNO, CMP wRFX A1C, LIPID #### [facility] [address] [place] [address] WBC (Bld) [#/Vol] 5.8 10*3/uL Normal 3.8-11.6 [facility] Comment on above: Performed By: #### N ICOTINE QUAL #### [facility] , #### TSH3, CBCNO, CMP wRFX A1C, LIPID #### [facility] [address] [place] [address] Leukocytes [#/volume] correc kim for nucleated erythrocytes in Blood by Automated counOrdered By: Natalia Cedillo on 10-04-2023 WBC corrected for nucl RBC Auto (Bld) [#/Vol] 5.8 10*3/uL 3.8-11.6 [facility] Lipid Panelon 10-04-2023 LDL Cholesterol,Calculated 133 mg/dL High 0-100 [facility] Comment on above: Result Comment: LDL ATP III CLASSIFICATION LDL less than 100 mg/dL Optimal LDL 100-129 mg/dL Near or above optimal LDL 130-159 mg/dL Borderline high LDL 160-189 mg/dL High LDL greater than 189 mg/dL Very high Performed By: #### N ICOTINE QUAL #### [facility] , #### TSH3, CBCNO, CMP wRFX A1C, LIPID #### [address] Triglyceride w/Reflex 151 mg/dL High 0-149 [facility] Comment on above: Result [...] TSH3, CBCNO, CMP wRFX A1C, LIPID #### [address] VLDL CHOLESTEROL 30 mg/dL Normal [facility] Comment on above: Performed By: #### N ICOTINE QUAL #### [facility] , #### TSH3, CBCNO, CMP wRFX A1C, LIPID #### [address] MCH [Entitic mass] by Automa kim countOrdered By: Natalia Cedillo on 10-04-2023 MCH (RBC) [Entitic mass] 29.0 pg Normal 24.7-34.3 [facility] Comment on above: Performed By: #### N ICOTINE QUAL #### [facility] , #### TSH3, CBCNO, CMP wRFX A1C, LIPID #### [address] MCHC Auto (RBC) [Mass/Vol]Or dered By: Natalia Cedillo on 10-04-2023 MCHC (RBC) [Mass/Vol] 33.4 g/dL 32.0-35.0 [facility] MCV [Entitic volume] by Auto mated countOrdered By: Natalia Cedillo on 10-04-2023 MCV (RBC) [Entitic vol] 86.7 fL Normal 80-100 [facility] Comment on above: Performed By: #### N ICOTINE QUAL #### [facility] , #### TSH3, CBCNO, CMP wRFX A1C, LIPID #### [facility] [address] [place] [address] Nicotine Metabolite, QualOrd ered By: Natalia Cedillo on 10-04-2023 Nicotine Metabolite P Normal Cutoff=25 [facility] Comment on above: Verified by repeat analysisPerformed at: [facility] [address] [id number] Director: Usha Linton MD, Phone: [phone] Result Comment: Ve rified by repeat analysis Performed at: [address] [id number] Senior Visual Designer: Usha Linton MD, Phone: [phone] PERFORMED BY: [place] [address] PATHOLOGIST COPIER TECHNICIAN DHRUV PALMER M.D. Performed By: #### N ICOTINE QUAL #### [facility] , #### TSH3, CBCNO, CMP wRFX A1C, LIPID #### [facility] [address] [place] [address] No Panel InformationOrdered By: Natalia Cedillo on 10-04-2023 Estimated GFR (CKD-EPI) > 60.0 mL/Min [facility] Creatinine Clearance (Chem N/A [facility] Platelet mean volume [Entiti c volume] in Blood by Automated countOrdered By: Natalia Cedillo on 10-04-2023 Platelet mean volume (Bld) [Entitic vol] 9.8 fL Normal 6.3-10.7 [facility] Comment on above: Result Comment: PERF ORMED BY: [place] [address] PATHOLOGIST COPIER TECHNICIAN DHRUV PALMER M.D. Performed By: #### N ICOTINE QUAL #### [facility] , #### TSH3, CBCNO, CMP wRFX A1C, LIPID #### [facility] [address] Platelets [#/volume] in Bloo d by Automated countOrdered By: Naatlia Cedillo on 10-04-2023 Platelets (Bld) [#/Vol] 311 10*3/uL Normal 150-450 [facility] Comment on above: Performed By: #### N ICOTINE QUAL #### [facility] , #### TSH3, CBCNO, CMP wRFX A1C, LIPID #### [facility] [address] Potassium [Moles/volume] in Serum or PlasmaOrdered By: Natalia Cedillo on 10-04-2023 Potassium [Moles/Vol] 3.6 mmol/L Normal 3.5-5.1 [facility] Comment on above: Performed By: #### N ICOTINE QUAL #### [facility] , #### TSH3, CBCNO, CMP wRFX A1C, LIPID #### [facility] [address] [place] [address] Protein [Mass/volume] in Ser um or PlasmaOrdered By: Natalia Cedillo on 10-04-2023 Protein [Mass/Vol] 7.6 g/dL Normal 6.4-8.9 [facility] Comment on above: Performed By: #### N ICOTINE QUAL #### [facility] , #### TSH3, CBCNO, CMP wRFX A1C, LIPID #### [facility] [address] Serum globulin measurement b y calculation (mass/volume)Ordered By: Natalia Cedillo on 10-04-2023 Globulin (S) [Mass/Vol] 2.8 g/dL Normal [facility] Comment on above: Performed By: #### N ICOTINE QUAL #### [facility] , #### TSH3, CBCNO, CMP wRFX A1C, LIPID #### [facility] [address] Serum or plasma albumin/glob ulin mass ratioOrdered By: Natalia Cedillo on 10-04-2023 Albumin/Globulin [Mass ratio] 1.7 {ratio} Normal [facility] Comment on above: Performed By: #### N ICOTINE QUAL #### [facility] , #### TSH3, CBCNO, CMP wRFX A1C, LIPID #### [facility] [address] Serum or plasma anion gap de terminationOrdered By: Natalia Cedillo on 10-04-2023 Anion gap [Moles/Vol] 10.0 mmol/L Normal 6.0-15.0 [facility] Comment on above: Performed By: #### N ICOTINE QUAL #### [facility] , #### TSH3, CBCNO, CMP wRFX A1C, LIPID #### [facility] [address] Serum or plasma high density lipoprotein (HDL) cholesterol measurementOrdered By: Natalia Cedillo on 10-04-2023 Cholesterol in HDL [Mass/Vol] 89 mg/dL Normal 23-92 [facility] Comment on above: HDL CHOL ATP-III CLA SSIFICATION Cardiovascular RiskHDL > or equal to 60 mg/dL LOWHDL < 40 mg/dL HIGH Result Comment: HDL CHOL ATP-III CLASSIFICATION Cardiovascular Risk HDL > or equal to 60 mg/dL LOW HDL < 40 mg/dL HIGH Performed By: #### N ICOTINE QUAL #### [facility] , #### TSH3, CBCNO, CMP wRFX A1C, LIPID #### [facility] [address] Serum or plasma total choles terol/high density lipoprotein (HDL) cholesterol mass ratOrdered By: Natalia Cedillo on 10-04-2023 Cholesterol.total/Lauren sterol in HDL [Mass ratio] 2.8 {ratio} Normal <5.0 [facility] Comment on above: Performed By: #### N ICOTINE QUAL #### [facility] , #### TSH3, CBCNO, CMP wRFX A1C, LIPID #### [facility] [address] Sodium [Moles/volume] in Ser um or PlasmaOrdered By: Natalia Cedillo on 10-04-2023 Sodium [Moles/Vol] 139 mmol/L Normal 136-145 [facility] Comment on above: Performed By: #### N ICOTINE QUAL #### [facility] , #### TSH3, CBCNO, CMP wRFX A1C, LIPID #### [facility] [address] Thyrotropin [Units/volume] i n Serum or PlasmaOrdered By: Natalia Cedillo on 10-04-2023 TSH Qn 2.05 m[IU]/L Normal 0.45-5.33 [facility] Comment on above: Result Comment: PERF ORMED BY: [place] [address] PATHOLOGIST COPIER TECHNICIAN DHRUV PALMER M.D. Performed By: #### N ICOTINE QUAL #### [facility] , #### TSH3, CBCNO, CMP wRFX A1C, LIPID #### [facility] [address] Triglyceride [Mass/volume] i n Serum or PlasmaOrdered By: Natalia Cedillo on 10-04-2023 Triglyceride [Mass/Vol] 151 mg/dL High 0-149 [facility] Comment on above: TRIG ATP III CLASSIF ICATIONTRIG less than 150 mg/dL NormalTRIG 150-199 mg/dL Borderline highTRIG 200-500 mg/dL High TRIG greater than 500 mg/dL Very highStandard traceable to the Center for Disease Conrtrol and Prevention (CDC) test method. Urea nitrogen [Mass/volume] in Serum or PlasmaOrdered By: Natalia Cedillo on 10-04-2023 Urea nitrogen [Mass/Vol] 12 mg/dL Normal 7-25 [facility] Comment on above: Performed By: #### N ICOTINE QUAL #### [facility] , #### TSH3, CBCNO, CMP wRFX A1C, LIPID #### [facility] [address] Basophils Auto (Bld) [#/Vol] on 09-07-2023 Basophils (Bld) [#/Vol] 0.0 10 3/uL 0.0-0.1 [facility] Basophils/100 WBC Auto (Bld) on 09-07-2023 Basophils/100 WBC (Bld) 0.6 % 0.2-2.0 [facility] Eosinophils/100 WBC Auto (Bl d)on 09-07-2023 Eosinophils/100 WBC (Bld) 3.6 % 0.9-7.0 [facility] Erythrocyte distribution wid th Auto (RBC) [Ratio]on 09-07-2023 Erythrocyte distribution width (RBC) [Ratio] 12.9 % 11.0-15.0 [facility] Hematocrit Auto (Bld) [Volum e fraction]on 09-07-2023 Hematocrit (Bld) [Volume fraction] 37.8 % 36.0-48.0 [facility] Hemoglobin [Mass/volume] in Bloodon 09-07-2023 Hemoglobin (Bld) [Mass/Vol] 12.1 g/dL 12.0-16.0 [facility] Laboratory - Hematology and Cell countson 09-07-2023 Immature granulocytes/100 WBC (Bld) 0.3 % 0.0-0.5 [facility] Leukocytes [#/volume] correc kim for nucleated erythrocytes in Blood by Automated counon 09-07-2023 WBC corrected for nucl RBC Auto (Bld) [#/Vol] 7.2 10 3/uL 4.0-11.0 [facility] Lymphocytes Auto (Bld) [#/Vo l]on 09-07-2023 Lymphocytes (Bld) [#/Vol] 2.6 10 3/uL 1.2-3.8 [facility] Lymphocytes/100 WBC Auto (Bl d)on 09-07-2023 Lymphocytes/100 WBC (Bld) 36.0 % 20.5-60.0 [facility] MCH Auto (RBC) [Entitic mass ]on 09-07-2023 MCH (RBC) [Entitic mass] 29.1 pg 26.7-34.0 [facility] MCHC Auto (RBC) [Mass/Vol]on 09-07-2023 MCHC (RBC) [Mass/Vol] 32.0 g/dL 29.9-35.2 [facility] MCV Auto (RBC) [Entitic vol] on 09-07-2023 MCV (RBC) [Entitic vol] 90.9 fL 81.0-99.0 [facility] Monocytes Auto (Bld) [#/Vol] on 09-07-2023 Monocytes (Bld) [#/Vol] 0.5 10 3/uL 0.3-0.8 [facility] Monocytes/100 WBC Auto (Bld) on 09-07-2023 Monocytes/100 WBC (Bld) 7.4 % 1.7-12.0 [facility] Neutrophils Auto (Bld) [#/Vo l]on 09-07-2023 Neutrophils (Bld) [#/Vol] 3.7 10 3/uL 1.4-6.5 [facility] Neutrophils/100 WBC Auto (Bl d)on 09-07-2023 Neutrophils/100 WBC (Bld) 52.1 % 43.0-75.0 [facility] No Panel Informationon 09-06 Eosinophils # (Auto) 0.3 10 3/uL 0.0-0.7 [facility] Immature Granulocyte # (Auto) 0.02 10 3/uL 0.00-0.03 [facility] Platelet mean volume Auto (B ld) [Entitic vol]on 09-07-2023 Platelet mean volume (Bld) [Entitic vol] 10.3 fL 9.5-13.5 [facility] Platelets Auto (Bld) [#/Vol] on 09-07-2023 Platelets (Bld) [#/Vol] 222 10 3/uL 150-450 [facility] RBC Auto (Bld) [#/Vol]on RBC (Bld) [#/Vol] 4.16 10 6/uL 4.20-5.40 [facility] Hep Bs Abon 02-03-2023 HBV surface Ab Ql (S) Reactive Invalid Interpretation Code [facility] Comment on above: Result Comment: Non Reactive: Inconsistent with immunity, less than 10 mIU/mL Reactive: Consistent with immunity, greater than 9.9 mIU/mL Performed at: [address] [id number] PhD Priya Govea Performed By: #### 1 [id number], [id number] ####[facility] [address] [place] [address] Measles/Mumps/Rubella Immuni tyon 07-01-2022 MeV IgG IA Qn (S) 54.9 A unit/mL Invalid Interpretation Code Immune >16.4 [facility] Comment on above: Result Comment: Nega tive <13.5 Equivocal 13.5 - 16.4 Positive >16.4 Presence of antibodies to Rubeola is presumptive evidence of immunity except when acute infection is suspected. Performed By: #### 1 [id number], [id number] ####[facility] [address] [place] [address] MuV IgG IA Qn (S) 11.7 A unit/mL Invalid Interpretation Code Immune >10.9 [facility] Comment on above: Result Comment: Nega tive <9.0 Equivocal 9.0 - 10.9 Positive >10.9 A positive result generally indicates past exposure to Mumps virus or previous vaccination. Performed at: [facility] [address] [place], [place] [id number] PhD Priya Govea Performed By: #### 1 [id number], [id number] ####[address] [place] [address] Rubella virus IgG Qn (S) 14.40 [IU]/mL Invalid Interpretation Code Immune >0.99 [facility] Comment on above: Result Comment: Non- immune <0.90 Equivocal 0.90 - 0.99 Immune >0.99 Performed By: #### 1 [id number], [id number] ####[facility] [address] [place] [address] Quantiferon-TB Plus (Client Incubated)on 07-01-2022 Gamma interferon background IA Qn (Bld) 0.05 International_Unit/mL Invalid Interpretation Code [facility] Comment on above: Performed By: #### 1 [id number], [id number], [id number] ####[address] [place] [address] M. tuberculosis stim IFN-g by CD4+ CD8+ T-cells Qn (Bld) 0.04 International_Unit/mL Invalid Interpretation Code [facility] Comment on above: Performed By: #### 1 [id number], [id number] ####[id number] M. tuberculosis stim IFN-g by CD4+ T-cells Qn (Bld) 0.04 International_Unit/mL Invalid Interpretation Code [facility] Comment on above: Performed By: #### 1 [id number], [id number], [id number], [id number] ####[place] [address] [id number] M. tuberculosis stim IFN-g Ql (Bld) [Interp] Negative Invalid Interpretation Code Negative [facility] Comment on above: Result Comment: No [...] interferon gamma. Chemiluminescence immunoassay methodology Performed at: [address] [id number] PhD Priya Govea Performed By: #### 1 [id number], [id number], [id number], [id number] ####[address] [place] [address] Mitogen stimulated gamma interferon Qn (Bld) >10.00 Invalid Interpretation Code [facility] Comment on above: Performed By: #### 1 [id number], [id number], [id number], [id number] ####[address] [place] [address] Service comment (Unsp spec) [Interp] Comment Invalid Interpretation Code [facility] Comment on above: Result Comment: [place] [...] for the test. Performed By: #### 1 [id number], [id number], [id number], [id number] ####[address] [place] [address] Varic IgGon 07-01-2022 VZV IgG IA Qn (S) 1985 Invalid Interpretation Code Immune >165 [facility] Comment on above: Result Comment: Nega tive <135 Equivocal 135 - 165 Positive >165 A positive result generally indicates exposure to the pathogen or administration of specific immunoglobulins, but it is not indication of active infection or stage of disease. Performed at: [address] [phone] PhD Priya Govea Performed By: #### 1 [id number], [id number], [id number], [id number] ####[address] [place] [address] Consent for Treatmenton 02 Consent for Treatment [id number] .00CD:127 Normal [facility] Physician Orderon 06-29-2022 Physician Order [id number]# 1.00CD:127 Normal [facility] CBC AUTO DIFFon 06-14-2022 BASO # 0.0 103/ul Normal 0.0-0.1 [facility] Comment on above: Performed By: #### C BC #### [facility] [address] [address] [address] Zach Mccormick Basophils/100 WBC (Bld) 0.5 % Normal 0.2-2.0 [facility] Comment on above: Performed By: #### C BC #### [facility] [address] [place] [address] Dr. Zach Mccormick EO # 0.2 103/ul Normal 0.0-0.7 [facility] Comment on above: Performed By: #### C BC #### [facility] [address] [place] [address] Dr. Zach Mccormick Eosinophils/100 WBC (Bld) 3.7 % Normal 0.9-7.0 [facility] Comment on above: Performed By: #### C BC #### [facility] [address] [place] [address] Dr. Zach Mccormick Erythrocyte distribution width (RBC) [Ratio] 12.4 % Normal 11.0-15.0 [facility] Comment on above: Performed By: #### C BC #### [facility] [address] [place] [address] Dr. Zach Mccormick Hematocrit (Bld) [Volume fraction] 39.6 % Normal 36.0-48.0 [facility] Comment on above: Performed By: #### C BC #### [facility] [address] [place] [address] Dr. Zach Mccormick Hemoglobin (Bld) [Mass/Vol] 13.0 g/dL Normal 12.0-16.0 [facility] Comment on above: Performed By: #### C BC #### [facility] [address] [place] [address] Dr. Zach Mccormick IG # 0.02 10e3/ul Normal 0.00-0.03 [facility] Comment on above: Performed By: #### C BC #### [facility] [address] [place] [address] Dr. Zach Mccormick IG % 0.3 % Normal 0.0-0.5 [facility] Comment on above: Performed By: #### C BC #### [facility] [address] [place] [address] Dr. Zach Mccormick LYMPH # 2.4 103/ul Normal 1.2-3.8 [facility] Comment on above: Performed By: #### C BC #### [facility] [address] [place] [address] Dr. Zach Mccormick Lymphocytes/100 WBC (Bld) 41.3 % Normal 20.5-60.0 [facility] Comment on above: Performed By: #### C BC #### [facility] [address] [place] [address] Dr. Zach Mccormick MANUAL DIFF REQ NO [facility] Comment on above: Performed By: #### C BC #### [facility] [address] [place] [address] Dr. Zach Mccormick MCH (RBC) [Entitic mass] 28.3 pg Normal 26.7-34.0 [facility] Comment on above: Performed By: #### C BC #### [facility] [address] [place] [address] Dr. Zach Mccormick MCHC (RBC) [Mass/Vol] 32.8 g/dL Normal 29.9-35.2 [facility] Comment on above: Performed By: #### C BC #### [facility] [address] [place] [address] Dr. Zach Mccormick MCV (RBC) [Entitic vol] 86.3 fL Normal 81.0-99.0 [facility] Comment on above: Performed By: #### C BC #### [facility] [address] [place] [address] Dr. Zach Mccormick MONO # 0.4 103/ul Normal 0.3-0.8 [facility] Comment on above: Performed By: #### C BC #### [facility] [address] [place] [address] Dr. Zach Mccormick Monocytes/100 WBC (Bld) 6.1 % Normal 1.7-12.0 [facility] Comment on above: Performed By: #### C BC #### [facility] [address] [address] [address] Zach Mccormick NEUT # 2.8 103/ul Normal 1.4-6.5 [facility] Comment on above: Performed By: #### C BC #### [facility] [address] [place] [address] Dr. Zach Mccormick Neutrophils/100 WBC (Bld) 48.1 % Normal 43.0-75.0 [facility] Comment on above: Performed By: #### C BC #### [facility] [address] [place] [address] Dr. Zach Mccormick Platelet mean volume (Bld) [Entitic vol] 10.4 fL Normal 9.5-13.5 [facility] Comment on above: Performed By: #### C BC #### [facility] [address] [place] [address] Dr. Zach Mccormick PLT 242 103/ul Normal 150-450 [facility] Comment on above: Performed By: #### C BC #### [facility] [address] [place] [address] Dr. Zach Mccormick RBC 4.59 106/ul Normal 4.20-5.40 [facility] Comment on above: Performed By: #### C BC #### [facility] [address] [place] [address] Dr. Zach Mccormick WBC 5.9 103/ul Normal 4.0-11.0 [facility] Comment on above: Performed By: #### C BC #### [facility] [address] [place] [address] Dr. Zach Mccormick LIPID PROFILEon 06-14-2022 CHOL-HDL RATIO NORM SEE BELOW Normal [facility] Comment on above: Result Comment: 3.3 - 4.4 LOW RISK 4.4 - 7.1 AVERAGE RISK 7.1 - 11.0 MODERATE RISK >11.0 HIGH RISK Performed By: #### T SH, CMP, LIPID #### [facility] [address] [address] [address] Zach Mccormick Cholesterol [Mass/Vol] 207 mg/dL Critically high <=200 [facility] Comment on above: Performed By: #### T SH, CMP, LIPID #### [facility] [address] [address] [address] Zach Mccormick Cholesterol in HDL [Mass/Vol] 81 mg/dL Critically high 40-60 [facility] Comment on above: Performed By: #### T SH, CMP, LIPID #### [facility] [address] [address] [address] Zach Mccormick Cholesterol in LDL [Mass/Vol] 99.6 mg/dL Normal [facility] Comment on above: Performed By: #### T SH, CMP, LIPID #### [facility] [address] [place] [address] Dr. Zach Mccormick Cholesterol.total/Lauren sterol in HDL [Mass ratio] 2.6 {ratio} Normal [facility] Comment on above: Performed By: #### T SH, CMP, LIPID #### [facility] [address] [address] [address] Zach Mccormick HDL NORMAL > or = 60 mg/dl - LO W CARDIOVASCULAR RISK <40 mg/dl - HIGH CARDIOVASCULAR RISK Normal [facility] Comment on above: Performed By: #### T SH, CMP, LIPID #### [facility] [address] [address] [address] Zach Mccormick LDL CALC NORMAL SEE BELOW Normal [facility] Comment on above: Result Comment: <100 mg/dl OPTIMAL 100 - 129 mg/dl NEAR OR ABOVE OPTIMAL 130 - 159 mg/dl BORDERLINE HIGH 160 - 189 mg/dl HIGH >190 mg/dl VERY HIGH Performed By: #### T SH, CMP, LIPID #### [facility] [address] [address] [address] Zach Mccormick Triglyceride [Mass/Vol] 132 mg/dL Normal <=150 [facility] Comment on above: Performed By: #### T SH, CMP, LIPID #### [facility] [address] [address] [address] Zach Mccormick VLDL CALC 26.4 mg/dL Normal [facility] Comment on above: Performed By: #### T SH, CMP, LIPID #### [facility] [address] [address] [address] Zach Mccormick PROF 14(COMP METB)on 023 Albumin [Mass/Vol] 3.8 g/dL Normal 3.4-5.0 [facility] Comment on above: Performed By: #### T SH, CMP, LIPID #### [facility] [address] [address] [address] Zach Mccormick Albumin/Globulin [Mass ratio] 1.1 {ratio} Normal [facility] Comment on above: Performed By: #### T SH, CMP, LIPID #### [facility] [address] [address] [address] Zach Mccormick ALP [Catalytic activity/Vol] 51 U/L Normal 46-116 [facility] Comment on above: Performed By: #### T SH, CMP, LIPID #### [facility] [address] [address] [address] Zach Mccormick ALT [Catalytic activity/Vol] 15 U/L Normal 14-59 [facility] Comment on above: Performed By: #### T SH, CMP, LIPID #### [facility] [address] [address] [address] Zach Mccormick Anion gap [Moles/Vol] 9.7 mmol/L Normal [facility] Comment on above: Performed By: #### T SH, CMP, LIPID #### [facility] [address] [address] [address] Zach Mccormick AST [Catalytic activity/Vol] 14 U/L Critically low 15-37 [facility] Comment on above: Performed By: #### T SH, CMP, LIPID #### [facility] [address] [address] [address] Zach Mccormick Bilirubin [Mass/Vol] 0.5 mg/dL Normal 0.2-1.0 [facility] Comment on above: Performed By: #### T SH, CMP, LIPID #### [facility] [address] [address] [address] Zach Mccormick Calcium [Mass/Vol] 9.3 mg/dL Normal 8.5-10.1 [facility] Comment on above: Performed By: #### T SH, CMP, LIPID #### [facility] [address] [address] [address] Zach Mccormick Chloride [Moles/Vol] 103 mmol/L Normal 98-107 [facility] Comment on above: Performed By: #### T SH, CMP, LIPID #### [facility] [address] [address] [address] Zach Mccormick CO2 [Moles/Vol] 31.2 mmol/L Normal 21.0-32.0 [facility] Comment on above: Performed By: #### T SH, CMP, LIPID #### [facility] [address] [place] [address] Dr. Zach Mccormick Creatinine [Mass/Vol] 0.69 mg/dL Normal 0.55-1.02 [facility] Comment on above: Performed By: #### T SH, CMP, LIPID #### [facility] [address] [place] [address] Dr. Zach Mccormick EGFR-AF BANGLADESHI >60 Normal >=60 [facility] Comment on above: Performed By: #### T SH, CMP, LIPID #### [facility] [address] [place] [address] Dr. Zach Mccormick EGFR-NON AF BANGLADESHI >60 Normal >=60 [facility] Comment on above: Performed By: #### T SH, CMP, LIPID #### [facility] [address] [address] [address] Zach Mccormick Globulin (S) [Mass/Vol] 3.4 g/dL Normal [facility] Comment on above: Performed By: #### T SH, CMP, LIPID #### [facility] [address] [place] [address] Dr. Zach Mccormick Glucose [Mass/Vol] 88 mg/dL Normal 74-106 [facility] Comment on above: Performed By: #### T SH, CMP, LIPID #### [facility] [address] [address] [address] Zach Mccormick Potassium [Moles/Vol] 3.9 mmol/L Normal 3.5-5.1 [facility] Comment on above: Performed By: #### T SH, CMP, LIPID #### [facility] [address] [place] [address] Dr. Zach Mccormick Protein [Mass/Vol] 7.2 g/dL Normal 6.4-8.2 [facility] Comment on above: Performed By: #### T SH CMP, LIPID #### [facility] [address] [place] [address] Dr. Zach Mccormick Sodium [Moles/Vol] 140 mmol/L Normal 136-145 [facility] Comment on above: Performed By: #### T ESAU CMP, LIPID #### [facility] [address] [place] [address] Dr. Zach Mccormick Urea nitrogen [Mass/Vol] 10.0 mg/dL Normal 7.0-18.0 [facility] Comment on above: Performed By: #### T ESAU CMP, LIPID #### [facility] [address] [place] [address] Dr. Zach Mccormick Urea nitrogen/Creatinine [Mass ratio] 14.5 mg/mg Normal [facility] Comment on above: Performed By: #### T ESAU CMP, LIPID #### [facility] [address] [place] [address] Dr. Zach Mccormick TSHon 06-14-2022 TSH 1.396 uIU/mL Normal 0.358-3.740 [facility] Comment on above: Performed By: #### T SH, CMP, LIPID #### [facility] [address] [place] [address] Dr. Zach Mccormick XR CSPINE 2_3 VIEWSon 2022 XR CSPINE 2_3 VIEWS EXAM: XR CSPINE 2_3 VIEWS HISTORY: Cervical radiculopathy COMPARISON: None. TECHNIQUE: Lateral, flexion, extension radiographs of the cervical spine. FINDINGS/IMPRESSION: Limited exam given only lateral views. Anatomy: There are 7 [id number] cervical segments. Bones: No acute fracture or dislocation. No suspicious lytic or sclerotic lesion. Normal lateral atlantoaxial alignment. Mild C4-C7 facet degeneration. Mild C5-C6 disc height loss. Mild C4-C6 endplate osteophytosis. No evidence for instability. Other: Unremarkable. Electronically authenticated by: ISHA LERMA Date: 2022-06-14 09:08 Normal [facility] Coding Summary.on 12-31-2021 Coding Summary. [id number] G h0bWw+PGhlYWQ+CT8QPCO fY25osQDlsB1MR1qOLL3O UVMLTIFVWK5CCG1pqQX2M IeyS1MsacNf IbyxcPVrQQ41UGh5COH0e YnxINefcC0tjWFcM1q8As ScPK35iC67TBgnGCDdSyI 3LjZpbjsgbWFy A3ofAcSadDYaCnc+PHRhY mxlIHdpZHRoPScxMDAlJy AkrLvkBK7mCm9aFXSuMII vbGxhcHNlOiBj o7ggMRQmEYypDG7nzImxB 4PtkYU9WUPrn6j2Xt68eX I+XNAoOUO3zHteKWjbq36 2MrDyf6vlJFE3 tSEnOPylVLV8F25ao3E7X TPeJONyJKI1dXP9rB5naH uilhprE8DtsAHwXoV6MTQ 8pFPxmO3dgMwq owfjcY7uKjs+Z88UPU6UZ MDIHQ3LAot1S2MzQscpkX I+XU56VAIdNT97eTAdpTH vk6acgNw2EkNp JYAbLIA1fZjyMSxjg7LiI LStK54uyVIty7S9JBDvlM fdmLYmKmOisND5bN5oWKn kphwlm4ncoawd Jkznb6hirf74bJ17Z94iZ DdgNFMxIPG2LBObBYKekK lemc4keQ0bBt9+WYstx8f fy3yatVy8EsSo FFDaubAefFfzSUY0u1FhX d60B7FjnYjyp1IhUki0he 93tYNzo5Z2kCY7YSwxKEN tcG3yASuiLfJ6 UXUoXwVybT33rIKkXHndP g7ljDrrxGejUD2oXDXsgc htJQQcdR5wSGTqlFUuyNm yGQ4bIUCkqcnw n617SsSvPAD2AGNszCQaK 5AgnX4nWaZaKDEoJQNiQ0 CwrYIaTEngC151IBwhPzU 8BCQdqzJbP4Cm HVVmhRjqKzC8f3C6Cf4Bb 4WrkeamMQZ9EIovWCS4Hz R5DdVnRbK4U2FtLzl0CGA qeZtoQP8wV0Zp NFMwcultckqbbRV6YTTzM FJvxS37mGAaEYwjDr7dg5 S1g843DLYwFLSmoW46Pd3 udDogMTBwdCBU fR9fkaloz2ysxuqsYlPwP AFkGWy3GBr0MKCrgRdxDk PeGOW9IpG1ASS5uIDjeZ6 jyImuwibugZ8i Oyc+H64tvE0sWGT0RMH4j atxLHQrmjSyKQ95OW17D2 RyPjwvdGFibGU+PGRpdiB eeKbcTF5jHgIt h0ler4LlBBvtA8XzHOFfZ VlkSud8AVKvMDE1uCL2zT 9kJZEeCHjem4W2yNT5W8W cfxMack2us5bp YGZdAKrdJ54swJSin2F8W RFwtXI6QXRgkGcmKhLxaA 93Oyc+CHAzwUfbj6KmYjm az1iys0ichMm8 PnNfAMItmpQrfLtnUMF5t 0VhVt37B97vMVlbATDvIU GlVWVqJEJrbVvzae3feD6 wIi8+PGNvbCB3 yLS6iS8nNWXiZyX9VYmdZ 649MjVzzUKvDfmvh3lig3 psoSd9VxNyEQGpseYcjPm lIJE4x4OcSw38 S09oGTkzSKLlMJDwZKYxP PRleZraaj1dvQ0nBr2+PC 4cp2boqb92cE05rFX+PHR fHNO8nGviJAsx KNDwtA7nEEbfMdA6OCRuF vHjiF16zWHyEHmpDt0lzX flsQyrVF3nDTUxmmjsl62 6LnVwk1oxCRVl dGLvUOvdGBX4G04gl7U2P XPjACUhDLZ0xSR0rC6kzF lnbjogbGVmdDsgdmVydGl nNMjvOBzbK730 IHRvcDsnPlBhdGllbnQgT wJoTNe0W1FbEut1WYNseL rlTS9xiCWcMYfrMx2okQl piMymGM0hBJNx kskha390TbXfq7ymYODab FKjWVdsFHF7B08id1H9HL DpEJIkNXZ0pFB0vG6ilQg nbjogbGVmdDsg fzVjxTyhPZymAWnbV732O HRvcDsnPkJpcnRoIERhdG U7AU38KN30tBHbd7K2cQR 8S4DlKTDldwic khchlDL4JMSuAUXrfE06X k9olBvjLd6iXVJySJT2QQ LjuBYqV9GmrP4dYkSkWXQ bFFMxR0LbtPPj FEcgY533ZYtmDhU3EEYlf cPvC7HxDJXvrMlsXcD3h8 C5Zl7ZO2S5JR60BO96pNV pn4F6zCC6A3Qs UQVspvewqcsmySM2QSIjT IFohQ04Jn9bdDbdRr1oHT BrVEE0NFZysVLcT4GgyJ2 yOiAjMDAwMDAw B0JpaATsTEpoI203CPgjW tN3SFBnanCqJ5JeMFRsmF gzEbM1w1A2Af4HVPs0NP0 6UU67uMSsv3J8 vLX0X1FmAXPkriywdgnaf ME5UJSlHRAiqN30Kf8puA krIt1nKRBfAIC9ETAywKC fO2DufC9oSzXr RIVsJUHxQ3SjuRKhWXfsJ 454OEtfTaI6OXVeosYrT1 OsROApsJanTxV9d8R6Qe6 GDQKlEF39XBY4 zRI4IQ19TW13X3TjFvuhd GFibGU+PHRhYmxlIHdpZH RoPScxMDAlJyBzdHlsZT0 zMk2kCBAmZHRe iFjqyCClEsYod0zsQPShS DyfBJ1igThxU4TbyKP9HR Mfg9d4As55A02pN9ZwjID +ZZJhuAE3hSM5 rC4aKfSjJaN3NCscL357Q cOwjVUyGumav6aay9ymfE m0ZaL0QIUpzyCtuNrrRKW 1k2AoAx63U04v IHdpZHRoPSIxNSUiIHZhb Jgxpw4gbV9tPd6+PGNvbC K4yUH8fB1vYuDrRwO9LVp yQ184HwMvjMIy Atsku3kog1qtlHp2DfCjJ RIwcvVnzBicHZK5d7IiOv 25U2MwoGmxx2FrGhg3ni9 1yMFmq6G2zIN2 O4PwZIVnxzmheHNwiPqhB P2iDUXywjczZFLbzL2iNQ LoO9u7GqAeUkU7OAupA6T hhbU0QKUonYXv GZjnXES4Y56fd2M5XTJrV GMnSLO1hUV7fZ5mhPuhvg ogbGVmdDsgdmVydGljYWw zQWaiD899KKUd vPzpKJKthS0lJFDsjKLui BukUF5xQTFsljlvAdDVJF pLKyyAImauNU0PAHzgPHc vdGQ+PHRkIHN0 mRhhUFmfZVOqbK6uXIKiG 7e4DyNuNfS2ZAczK6OcSU YdnkjsAd99kH0fYzMoUrH 5RErjQ7HyveS1 KTZypMQfLMahTDT6S84av 3S8CHCrCFUwEXE3lQG4dZ 1hbGlnbjogbGVmdDsgdmV ydGljYWwtYWxp I668UHPgfJpxZhPzLiKnI aG6EeR2L1CgVmq6QMBccL vqKH5zxVFtWGsnSj3juYr hnCplPQ0oFLHs niabNLZsgY9sEMLrdPPyk VooXP1yMRVzhnhzi563It ZgSXJ2ETRxgHTsO4PftG6 yOiAjMDAwMDAw U8SalLCaHCgmK326JDtdV jQ0HMQdcuCiO1DdCSYyjU cjTuZ1w1J6It46WoRDXKR yczwvdGQ+PHRk RLC9hVtfWLguZQWboL2jG DHgK5g8BjFdFuT2JDjqV9 MfSEFllmghKe17mI3xDvY lItJ0DQxeB7Lh vgZ1QQIovDKpFIyqETS0J 46kh5H6KSByCAXgRAE0jO B1bC6tkVipmvomkMSzdQp gdmVydGljYWwt CPxdB400UIDycRogUaKym WFsZTwvdGQ+YQFxIEV4vH mwCAbeOSVwaB4sVUGfP8i 8FjAkWxU9XEwk R3XtWHUewfdbAh36gD1hN qMyCsK5EVbvV0OcjaC6TY WpyHZiBCyzQEY2Z08xn5R 8XLJsKFMrRUD6 cCA4bY2joJzhsntamEIvp DsgdmVydGljYWwtYWxpZ2 39SOMlbVyuCmCxQKQsKE0 jeTwvdGQ+PC90 nn95T7DtRhlfPgw4DBTjE ZJ7xWI4pM1jEICiAZgsz8 G5gBZ9C9TkheLvfo9cb0t sQODoWOvxP48j lSBkh0Z7YGIsdRY5TJTgr NqvTwPaoT87Gfu+PGNvbG oxs2FpYseql9gua8iykZp 9IjMwJSIgdmFs oOawZYN3c4MgDy68G51bL HdpZHRoPSIzMCUiIHZhbG xbcj2geI7nRp8+PGNvbCB 0wHP8bO7qHeUr SyQ0JObnA041ItSbcEIiO hkjh6bfi3iurDk1PnZcOJ IhekDveCzwWKT5f5UzMn3 3P7IvlAacr7Im Uof8xh79qKKkv5G0eFG8J 3BhZGRpbmctbGVmdDogMC 7uMDPaszyoRMEydC5rFDD oW7c1LaIbKdT4 BBliK9AwoiY7BHAdtMHlP TSxmLLJfT1bnrmlk2javl omDrXzQWNdNKh7FJl3CWH saWduOiBsZWZ0 FjI3MPM9mQZvvZ4scRksx nxjkA0zKbc+NUp4m1lvgE ScGF6oxWI9LH80FX40fAK en2C2nMX7H1Ml MIOppbrlwrchxSH2EFCgL EGucB34Ts3rqAeeWr2dVV NcUIV5WXVmaKPmQ0GrtA9 yOiAjMDAwMDAw D0VxvSNlGWixL574DNrcL hE4JINslbDjI7IoDDQbhJ xwEjU3u7T8Rb7KCS98FI7 1PR74zYEsi0F3 gZF8I6IjJKRuiulhbuoev ZQ5TNEkRMZeoO08Yy1hvS ujYi7nCBUrMGI0QXXaaDS oF7ByxU3kVaMa HGNpOGLnZ7DeuACgNYnpR 304CEwiXjF0ZNVsuzWkX0 JxSAAibQwgBwI3o1C2Fh5 MEy76IP88UT78 pHWlg9A7mAR1H4TdHMEob qhawzovzBI9HBPpPWPqfE 91Nw6fnSxuYd1xSIEzKZY 8HAFmcQYvO1Qc cE1eVyRjASKnSWOhQ5Vin CEjCZhdL278HDmhMsS5DX DyhcYpI5IpIVWwtZwoOlC 6h2O4Iy5TUWxk uip0E3EwTqanyTK+PC90Y AEpIK04xWVjbEAef2hulC b2DjKbQOCgEGF5lLymQLl qn7XtCAGaL53v bGFw (more content not included)... Normal [facility] Discharge Instructionson Discharge Instructions [id number]:[id number] Normal [facility] Grp A Strp PCRon 12-30-2021 Grp A Strp Intrl Ctrl Pass Normal [facility] Comment on above: Order Comment: Order Added on by Discern Rule. Performed By: #### 2 [id number] ####[facility] [address] [place] [address] S. pyogenes rRNA Probe Ql (Unsp spec) Negative Normal [facility] Comment on above: Order Comment: Order Added on by Discern Rule. Result Comment: Test ing performed using DNA amplification. Performed By: #### 2 [id number] ####[facility] [address] [place] [address] Rapid COVID Antigen ([facility])on 12-30-2021 Rapid COV Int NEG Ctl Pass Normal [facility] Comment on above: Performed By: #### 2 [id number] ####[facility] [address] [place] [address] Rapid COV Int POS Ctl Pass Normal Fis her [facility] Comment on above: Performed By: #### 2 [id number] ####Carlos [facility] [address] [place] [address] SARS-CoV+SARS-CoV-2 (COVID-19) Ag IA.rapid Ql (Resp) Not detected Normal Not Detected [facility] Comment on above: Result Comment: The Ellie? System for Rapid Detection of SARS-CoV-2 is [...] or revoked sooner. Performed By: #### 2 [id number], [id number], [id number] ####[facility] [address] [place] [address] Rapid Strep w/rfxon 12-31-19 22 S. pyogenes Ag IA.rapid Ql (Throat) Negative Normal Negative [facility] Comment on above: Performed By: #### 2 [id number], [id number] ####[facility] [address] [place] [address] Consent for Treatmenton Consent for Treatment [phone] [id number] Normal [facility] ED Clinical Summaryon 2021 ED Clinical Summary [address] [address] ED Clinical Summary Person Information Name: WYATT HARRINGTON [facility] Age: 46 Years : 1975 Sex: Female Language: Romanian PCP: ALISHA SELLERS MD Marital Status: Phone: [phone] Visit Id: Visit Reason: Cough; Ear pain; [...] 12/29/2021 21:56:01 12/29/2021 21:56:01 12/29/2021 21:56:01 ADDRESS: [address] [place] [id number] PHYS DOC NOTES: MEDICAL INFORMATION: Prescriptions Given: New Medications [id number], [address] [place], [place] [id number], [phone] azithromycin (azithromycin 250 mg Tab) 250 Milligram By Mouth As Directed. Refills: 0. guaifenesin-pseudoeph edrine (Mucinex D Max Strength oral tablet, extended release) 1 Tablets By Mouth every 12 hours for 7 Days. Refills: 0. Medications to Continue with No Changes Other Medications acetaminophen-hydroco done ([place] 325 mg-5 mg oral tablet) 1 Tablets By Mouth every 4 hours as needed for pain. Refills: 0. PATIENT EDUCATION INFORMATION: Instructions: Sinusitis, Adult, Xyyq-gf-Wrif; Pharyngitis, Ynwr-jp-Dccx Follow up: With: Address: When: Call for test results With: Address: When: ALISHA SELLERS [facility] [place] [address] Business (1) In 3 days 01/01/2022, only if needed DIAGNOSIS: 1:Acute sinusitis; 2:Acute pharyngitis Normal [facility] ED Note-Physicianon 12-30-19 ED Note-Physician Basic [...] Directed, # 6 tab(s), Refills(s) 0, Pharmacy: [facility] #[id number], 155, cm, 12/29/21 20:14:00 EDT, Height/Length Dosing, 49, kg, 12/29/21 20:14:00 EDT, Weight Dosing guaifenesin-pseudoeph edrine, 1 tab(s), Oral, q12hr for 7 day(s), 14 tab(s), Refill(s) 0, [id number], 155, cm, 12/29/21 20:14:00 EDT, Height/Length Dosing, 49, kg, 12/29/21 20:14:00 EDT, Weight Dosing Rapid COVID Antigen ([facility]) Rapid Strep w/rfx Disposition Plan Patient Discharge Condition Stable Discharge Disposition Home Discharge Prescription List Prescriptions azithromycin 250 mg Tab, 250 mg, Oral, As Directed Mucinex D Max Strength oral tablet, extended release, 1 tab(s), Oral, q12hr Follow-up With When Contact Information ALISHA SELLERS In 3 days 01/01/2022 EDT, only if needed [address] [place], [place] [id number] Business (1) Additional Instructions: Call for test results Additional Instructions: Patient Education Sinusitis, Adult, Trce-mb-Hxps Pharyngitis, Ctol-em-Fymr Problem List/Past Medical History Ongoing ADD (attention [...] tablet, extended release, 1 tab(s), Oral, q12hr [place] 325 mg-5 mg oral tablet, 1 tab(s), [...] Diagnostic Results No qualifying data available. Normal [facility] Comment on above: Result Comment: Elec tronically Signed By: Rafita OSBORNE, Brenabe\.br\Date and Time Signed: 12/29/21 21:37 EDT ED [...] home: Medicines ? 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 ? Do not smoke. Avoid being around [...] by you (more content not included)... Normal [facility] ED Patient Summaryon 022 ED Patient Summary [address] [address] Patient Discharge Instructions Person Information Name: WYATT HARRINGTON Age: 46 Years Arrival Date: 12/29/2021 20:04:48 Discharge Diagnosis: 1:Acute sinusitis; 2:Acute pharyngitis Primary Care Physician: ALISHA SELLERS MD Provider Information Primary Provider: Bernabe Eller MD Advanced Therapy Site Coordinator:None The exam and treatment you received in the Emergency Department were for an urgent problem and are not intended as complete care. It is important that you follow up with a doctor, nurse practitioner, or physician?s nutrition assistant for ongoing care. If your symptoms [...] test results With: Address: When: ALISHA SELLERS [address] [place] [address] [facility] (1) In 3 days 01/01/2022, only if needed In the event that this physician does not participate in your insurance network, please consult with your insurance company to find a nearby participating provider. Patient Education Materials: Sinusitis, Adult, Quss-bf-Ipys; Pharyngitis, Sidg-yr-Ogkg A MESSAGE TO ALL PATIENTS REGARDING OPIOIDS PRESCRIPTION OPIOIDS: WHAT YOU NEED TO KNOW Prescription opioids can be used to help relieve afynjjnp-lo-cvenke pain and are often prescribed following a [...] be struggling with addiction, tell your health transitional care liaison an (more content not included)... Normal [facility] MICRO OTHER TESTSOrdered By: Shailesh Dye on 12-29-2021 Rapid COV Int NEG Ctl Pass (12/29/21 9:38 PM) Normal [facility] Man Sero Rapid COV Int POS Ctl Pass (12/29/21 9:38 PM) Normal [facility] Man Sero S. pyogenes Ag IA.rapid Ql (Throat) Negative (12/29/21 9:38 PM) Normal Negative [facility] Man Sero SARS-CoV+SARS-CoV-2 (COVID-19) Ag IA.rapid Ql (Resp) Not Detected (12/29/21 9:38 PM) Normal Not Detected [facility] Man Sero Rapid COVID Antigen ([facility])on 12-29-2021 ADMITTED TO INTENSIVE CARE UNIT FOR CONDITION OF INTEREST:FIND:PT: NO Normal [facility] Comment on above: Performed By: #### 2 [id number] ####[facility] [address] [place] [address] EMPLOYED IN A HEALTHCARE SETTING:FIND:PT: NO Normal [facility] Comment on above: Performed By: #### 2 [id number], [id number] ####[facility] [address] [place] [address] FIRST TEST FOR CONDITION OF INTEREST:FIND:PT: NO Normal [facility] Comment on above: Performed By: #### 2 [id number], [id number], [id number] ####[facility] [address] [place] [address] HAS SYMPTOMS RELATED TO CONDITION OF INTEREST:FIND:PT: YES Normal [facility] Comment on above: Performed By: #### 2 [id number], [id number], [id number] ####[facility] [address] [place] [address] HOSPITALIZED FOR CONDITION OF INTEREST:FIND:PT: NO Normal [facility] Comment on above: Performed By: #### 2 [id number], [id number], [id number] ####[facility] [address] [place] [address] STATUS:FIND:PT: Unknown Normal [facility] Comment on above: Performed By: #### 2 [id number], [id number], [id number] ####[address] [place] [address] RESIDES IN A [facility] CARE SETTING:FIND:PT: NO Normal [facility] Comment on above: Performed By: #### 2 [id number], [id number], [id number] ####[facility] [address] [place] [address] C Urineon 11-10-2021 Bacteria identified Cx Nom [...] Locations R1: This test was performed at: [facility], [address] [place] [address], [address] , , Normal [facility] Comment on above: Performed By: #### 2 [id number] #### [facility] [address] [place] [address] Chlamydia/Gonococcus, NAAon 11-10-2021 C. trachomatis rRNA JACEY+probe Ql (Unsp spec) Negative Invalid Interpretation Code Negative [facility] Comment on above: Performed By: #### 1 [id number] ####[facility] [address] [place] [address] N. gonorrhoeae rRNA JACEY+probe Ql (Unsp spec) Negative Invalid Interpretation Code Negative [facility] Comment on above: Result Comment: Perf ormed at: =G [facility] [address] [facility] [id number] MD Yana Tan Performed By: #### 1 [id number] ####[facility] [address] [place] [address] Coding Summary.on 11-09-2021 Coding Summary. CD:[id number] G h0bWw+PGhlYWQ+GW5IOEE pI12piOInuJ8LX3vNDN8K DEIIEAVOLI9WOZ2qmQB5E UmfJ3WxouQy HqpzpNUzZN45VAu0JNZ1f WphAHbxaT4svTDhC4h2Iw RjOI67xW55QJqlYIRgHsD 3LjZpbjsgbWFy W4hgSmXecYZoQkk+PHRhY mxlIHdpZHRoPScxMDAlJy IthCmaSB9nSh4xXZDoQRX vbGxhcHNlOiBj c7zzBYNbFIcuJI1ctYnwZ 0SwcAN6KQImp1j1Bz07yA I+PZCuRCQ3aWrwTOqby76 3AvDkn5qzKHB2 cIYlBBmbWLE8I36tq8B3A SFnANSyGYQ9rHL4yF1bdQ joyxrjF2UwuMDjKnX7GTM 2kDHsvS7hqZsk jqkyhM1wPzy+I50XAJ8FK XDDER6PJms9R2NxLsncnC I+YV65WWTmGN68hDTlbEB jj6ncpIy9VwBx WONhRDE9oVvkIRyhk7RrS PKoU61xjMGgl2H0TKWwtL anuSPlGvUfwIS7nE4gZCk zpehgy9gfwytr Rmliu8fzzg32lB28J28fR VemBQNeKAF1PGUuIBSvaT xbnj5uxW1zUb5+YEuyw3x ni3grrQm4PkBj PLKrppCybVwyYRY7y3PgF z25R3OmvGaao5OhKqz7bp 69hODml8M6cAS5HRsrIEN klW3xQWlsWaE8 KEHoLaGekP69vXCxBYytX m0ezIbipZatFQ8vXHQehq kgOIOujO3tLLTzfMHchFz xDL8kAPDfqmuh d409YfWdWOL5TFTewQDhG 5ZffW9tQhVbEHPsKQWnK7 MqeVHzIRhjG132MOqhHtV 1DNZhjyCdK2Cm VMDwqXpvKoD9j1Z5Nm6Ml 4BqykzsNTQ1ZIcbFYA2Qe B7UnIeRtB4D9JaSkn0NEK qxQrzND9uU5Oq KTYqjbjetajhgVE6FVOpK PAkaA49mVPvRAeeRg4bu5 M0b493FVNhHHDtuR91Hd3 udDogMTBwdCBU dI4xyrwkh4cuzuynIeYfG TLkIIg6VOi5PPWykBzpYi AaSYY6OzS2ALG8nQVddM9 nqLmyfkeimK9x Oyc+Y16dfF3oTRL3ELI2m xcbFZBldpJzFN48BV63E8 RyPjwvdGFibGU+PGRpdiB ilHbgZO5lLuIj e0bqj0UnJKbtO3RbCBOqU GsaIrl2NNJjHHH7zVH3sR 1aVEMuKUwfx8K5eBG0R7K yscOerh5ci5bn MOLhVIdlF55srRAzg4F4I GHdoIT7OSMviIedEkRemS 93Oyc+GWWjeRuyv1CmHxj hr9kbl3qpcNq6 OvNmRZJxtlXgtLsgUEQ9k 1YnXz82S19mJStdQAGcNW FmRARpTYUxqCcuqn5srY7 wIi8+PGNvbCB3 qGM6pO8bJKZiCfJ9AYuyS 978UhCltKQfHthhd2mog7 jxjRq5GcAkAQFaybQflRw lJZX2k5CeDm13 J65zIYmnUTHzVZDuCVRbV ZOhiFrdox8bzR0cKx1+PC 3de8xwlw80uS49wDE+PHR ePBC0mUgrIQcc EYWriN1gWYmgWsF7PBMzS fLkpF60pPDxUAyuNc9crJ dxfBriFX2gHQAxwtdxw39 8GcFcm6abKTAr vSSjFPqiKDH3Z23la9W3C FZdFZGaRGF0tQS7rL6mtI lnbjogbGVmdDsgdmVydGl fDJhgTMzbL535 IHRvcDsnPlBhdGllbnQgT cWgNMt4W4VwVoz6UZXzzI gfEY2wcQBcMMfrMm5uuTu qwKgkDL1hWDNw thchv624RqRez8vsIEQvl WXdNZukTJJ9Z07yg2Q4GQ YpTXAkTQT8pMB9nH3odYm nbjogbGVmdDsg mxLxtEubADzfZErgE820T HRvcDsnPkJpcnRoIERhdG Y2HI78DG01sOLro8S5yCI 0S8HaOFPwtedq ohjgfSW8WUExSUXhpN90S t2ksKcfSh6yRWGzTXK1TA PcxCPqD5PylF7uQtErQKP gFCXrB5LzyLKe CTgzX536CVwiDoJ9CVQbr iYnB2CaEXDeiDgfQoU0r4 S6Bs4YE5E1XK10ZD24bTP ph1Q2dGJ3Q1Bf MFAnhcseefiskXS9JFIvU QEjuV47Oj3gjYuzSo2sTW LmUGF2NXQqgMWmQ1PzlH2 yOiAjMDAwMDAw F4UwkDZqKBcbO447JWgtN pS0TXRazkRyE4NlPNPgpF ygLdQ9q9G0Bv8FSZy1AY2 3EU57fERcy5A0 yFY5E2MvYWCtgoytdkepv ZW0IWSqQILfkK66Dh6jmU poZb1qNQNoJAB1IZEcaTT oZ7FdgZ4vNeKy DAAqZEIfF3MfeWEfUNclJ 556IOzaCwB0YRMsfpFvF7 ZgYKVpzAplDeL1p2D5Uk5 ECZHwXZ57ZOC5 nII9RO11UC94G4YqQbgsz GFibGU+PHRhYmxlIHdpZH RoPScxMDAlJyBzdHlsZT0 fTq8lYSOkBHBa kQgakCMoWqLxg9sbTIQsU SjgDK3udOldS3EkoHG5BH Gze9z0Xv67D48nO1AyzPT +XMFmqFO3tCC3 sT6iAgLyNmK7CJieE735Y iYteSYkTsuvj2jvd0ooeN e3IiZ0YTAnfeYwtPiaNIJ 9v0AeGo44C40c IHdpZHRoPSIxNSUiIHZhb Ubsmk1hjB8aVb4+PGNvbC G9eMG1zN9uFtKlDwW1MJy cX946EuPauNZl Gpnbd4rrj8nbtHy7BhHwG BWrauSrhKqxPJU0w5VwEy 94T8SzqOjhf3GuCbg5lc0 0bUZal7Z5xZK6 P7KrIXNqkneilZDgsZkhJ A0tNUEbowyxYVJmjK4eFQ QiI4o0JeYoAbT7RJyvP9E kjvU3OOZboLXo IJltGJK4Y48tt1F8VFWtN LNpPZJ8gKT7wL9jlFciug ogbGVmdDsgdmVydGljYWw sVCkiK061SCDs qQfhCYTpnL4zHOUnsCSao SfyFP7mRIJbollgXjDIQN eWSsjFDlbjDN2RBWruXLe vdGQ+PHRkIHN0 hTysDOfvHTSweF0uEEEhJ 3j7KxXpSzR2UMofB1GnPA LvfgxdTa91uY7eMwEnUeG 2QNelQ7DvjhA5 YHXcyGXlAQpkIDZ1F56ri 3X5LYKcXQUvZAS1tZR1iF 1hbGlnbjogbGVmdDsgdmV ydGljYWwtYWxp C519XXPguSupDkObGsQaF fD5ZbG2B7KhCwp7IONcmP jiWC0enXQvVNijCz8meJf mqWtzXR4zYWUg fhzzPTFkxD1eTLUwkWChc ZpoGS3fXMKzlzcxe546Fb HpGZL0PNBxbZWuZ9AhyZ4 yOiAjMDAwMDAw U6ShqSGvPXizR338UMwiL mI4DHFwtbOcG3DdQSObpW qiNaW5x7C1Oj83AlXVJDP yczwvdGQ+PHRk RMG3gHlmLVdfZHHkwW2cP TUcU2p0BiHtZtB4HEgvB8 TwZQLzzajcFv81dL8xLfE wMsO0BIisA5Wv jnB6VSKnmHBrHSzwXFA8V 98gn5Z1GSKkNZXhAKA2kA N2oK9rqFxbtidijHCmeGi gdmVydGljYWwt NIfgR558LVJrlTiwYuJll WFsZTwvdGQ+JVGvFXN2cM lxJCgjQGSpoC2lCYTuI1e 1EvSpPoI5RWfk R9WqYBBpewhkAm98fM6lM uSzFtW2FBssI5BssnO7OQ WhtCCdBGhbDKG4G09lg0E 4CXWqZXKwPHL1 tGO7cM2kmTcngweqtZRav DsgdmVydGljYWwtYWxpZ2 13NAEvpBadUxhrZwISgx7 rXC7mVpydiHG+ HC99pq43J7LtWgbkIku0H KEjFZV8pCT2aY3jUWReEW lec9N4qVU6N6HoraMgye7 za8rqGWVuVSwd F27yyOKxs8M9XXEsoPG0H KDveZxfMdKuhS39Jkj+PG NyeFvuq1VbYytip9lth3p cuZt0AkZhKFUz lbBlmKipQLB0i7WjXf22X 29sIHdpZHRoPSIzMCUiIH MyyFqqqt8ciQ8qNn3+PGN qpRP4aMY1wO0b AgFgHjO8OUtkM362GvQvz ZVcWgljv6sdh1xkfIe3Cq QwJOTnfrOvyGaqTOI0t6H pTb91L1UsoGhl y4WzBhw1ww02eOBoi7C0r LN3I3BsDLVhtsokaRNbjH oeXF3aQLUfswarVISlvP8 jVSFiQ6w0CjEl YeM1RTfvX1MlibP2HZAon TMaRVHeuSUKdD8rbdldg3 nxqtriAdVqCDDcGWf4KGq 0LWFsaWduOiBs HBS1TaN3PAL7kTSewO4hc ZnduaanhZ4rJpv+UGh5c2 lggIOkNV1slMX6ET75QS3 0hLAxl0J1eZV0 A6KpJTBncdpqognavVP2Y YPgFASxnT09Zs2gqKhoTl 6hATBnERQ6PMUhbFFgU3M tiS8lWvOlIRFk IVBlB4KgkGWrOXtcF711B BqaAcW2XXJemnAxY3IiXD LohYrqFqD2k6Y3Vk8QGZ0 5VC38QI37pQCn e5L1xRD2G7WoTJZbovcnl lqprIQ9KKYpCNFwkQ62Aj 4cyWhkRc9pJGJxURF9EHG ogEWkT2LkhL0y GsZvVYLsEHYhR7RvrMQiC FbkJ468FLxvJbF2FOGvag GbM9ZwVPTmjPyxSfF1k4F 0At5ZCa76ZM97 MM93oJDbc6I2lAY8C5OrP OKillqkcugriKJ7WVXpGZ FyyO38Ah0afYhgUe9tUGC jJIX8YOVlnJJa M6VeyR2aVuSoKTPgRKFcI 3HdpUFnDItuR818HFssHg G3UPGqtoEtJ3AbSRMxnVv mRlR5e8S6Kw9E WZdbqvg2Q7VcCyjnzCE+P S43CALuGL07nPDsaERzx5 pksPc9IwKbODLhMCZ9lVv mEByrg9UcRLVx Y29s (more content not included)... Normal [facility] Vaginitis/Vaginosis, DNA Pro beon 11-09-2021 Taniya sp rRNA Probe Ql (Vag fld) Negative Invalid Interpretation Code Negative [facility] Comment on above: Performed By: #### 3 [id number] ####[facility] [address] [place] [address] G. vaginalis rRNA Probe Ql (Genital specimen) Positive Abnormal Negative [facility] Comment on above: Performed By: #### 3 [id number] ####[facility] [address] [place] [address] T. vaginalis rRNA Probe Ql (Genital specimen) Negative Invalid Interpretation Code Negative [facility] Comment on above: Result Comment: Perf ormed at: [facility] [address] [id number] PhD Priya Govea Performed By: #### 3 [id number] ####[facility] [address] [place] [address] Ambulatory Visit Summaryon 0 11-07-2021 Ambulatory Visit Summary WYATT HARRINGTON :1975 Visit Date:11/07/2021 Ambulatory Visit Instructions Your Diagnosis Dysuria Vaginal odor Tests Performed Urinls Dip Stick Non-Auto w/ Micrscpy POC 43948 Your Care Team Attending Physician - Misty NELSON CNP Primary Care Physician - ALISHA SELLERS MD This Is Your Medications List Contact prescribing physician if questions or concerns acetaminophen-hydroco done ([place] 325 mg-5 mg oral tablet) albuterol (Ventolin [...] Much When Why Instructions Unchanged acetaminophen-hydroco done ([place] 325 mg-5 mg oral tablet) 1 Tablets [...] Urinls Dip Stick Non-Auto w/ Micrscpy POC 24771 (11/07/2021) Bilirubin Urine Dipstick - Negative Blood Urine Dipstick - Negative Glucose Urine Dipstick - Negative Ketones Urine Dipstick - Negative Leukocytes Urine Dipstick - Negative Nitrite Urine Dipstick - Negative Protein Urine Dipstick - Negative Specific [place] Urine Dipstick - 1.010 Urine Appearance Urine Dipstick - Clear Urine Color Urine Dipstick - Yellow Urobilinogen Urine Dipstick - Normal 0.2-1 EU/dl pH Urine Dipstick - 6 Allergies No Known Allergies Problems Ongoing - Any problem that you are currently receiving treatment for. 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 [...] Urinls Dip Stick Non-Auto w/ Micrscpy POC 45365 Vaginitis/Vaginosis, DNA Probe 2. Vaginal odor (N89.8: [...] day(s), # 14 tab(s), Refills(s) 0, Pharmacy: [address], 156, cm, 11/07/21 14:59:00 EDT, Height/Length Dosing, 49.8, kg, 11/07/21 14:59:00 EDT, Weight Dosing Chlamydia/Gonococcus, JACEY Vaginitis/Vaginosis, DNA Probe Follow-up With When Contact Information VERITO OSBORNE, ALISHA, [id number] [place] [address]- Additional Instructions: Patient Education Dysuria Problem List/Past [...] Tab, 500 mg= 1 tab(s), Oral, q12hr [place] 325 mg-5 mg oral tablet, 1 tab(s), [...] Protein Urine Dipstick: Negative (11/07/21 14:48:00) Specific [place] Urine Di (more content not included)... Normal [facility] Comment on above: Result Comment: Elec tronically Signed By: Misty NELSON CNP\Date and Time Signed: 11/07/21 15:26 EDT Patient [...] may irritate the prostate. Medicines ? Take qpvg-myn-fhuebkh and prescription medicines only as told by [...] 02/10/2005 Document Revised: 04/27/2018 Document Reviewed: 03/01/2018 [employer] Patient Education ? 2019 [employer] 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 Vital Signs Date Time Vital Sign Value Performing Clinician Facility 03-26-2024 08:39-0400 Body height 160.02 cm [facility] 03-26-2024 08:39-0400 Body mass index (BMI) [Ratio] 21.4 kg/m2 [facility] 03-26-2024 08:39-0400 Body weight 54.88 kg [facility] 03-26-2024 08:39-0400 Diastolic blood pressure 81 mm[Hg] [facility] 03-26-2024 08:39-0400 Heart rate 94 /min [facility] 03-26-2024 08:39-0400 Systolic blood pressure 115 mm[Hg] [facility] 09-12-2023 10:26-0400 Body height 160.02 cm [facility] 09-12-2023 10:26-0400 Body mass index (BMI) [Ratio] 21.8 kg/m2 [facility] 09-12-2023 10:26-0400 Body weight 55.9 kg [facility] 09-12-2023 10:26-0400 Diastolic blood pressure 54 mm[Hg] [facility] 09-12-2023 10:26-0400 Heart rate 75 /min [facility] 09-12-2023 10:26-0400 Systolic blood pressure 79 mm[Hg] [facility] 06-13-2022 10:30-0500 Body height 160.02 cm Alisha Sellers Other [facility] [employer] Other 06-13-2022 10:30-0500 Body mass index (BMI) [Ratio] 20.55 kg/m2 Alisha Sellers Other [employer] [facility] [employer] Other 06-13-2022 10:30-0500 Body weight 52.62 kg Alisha Sellers Other [employer] Other 06-13-2022 10:30-0500 Diastolic blood pressure 80 mm[Hg] Alisha Sellers Other [facility] [facility] [employer] Other 06-13-2022 10:30-0500 SaO2% (BldA) [Mass fraction] 98 % Alisha Sellers Other [facility] [facility] [employer] Other 06-13-2022 10:30-0500 Systolic blood pressure 122 mm[Hg] Alisha Sellers Other [employer] Other 12-29-2021 20:10-0400 Body temperature 99.14 [degF] Bernabe Rafita [facility] 12-29-2021 20:10-0400 Diastolic blood pressure 77 mm[Hg] Bernabe Rafita [facility] 12-29-2021 20:10-0400 Heart rate 105 /min Bernabe Rafita [facility] 12-29-2021 20:10-0400 Respiratory rate 16 /min Bernabe Rafita [facility] 12-29-2021 20:10-0400 SaO2% (BldA) [Mass fraction] 99 % Bernabe Eller [facility] 12-29-2021 20:10-0400 Systolic blood pressure 109 mm[Hg] Bernabe Eller [facility] 11-07-2021 14:55-0400 Body temperature 97.52 [degF] Misty NELSON [facility] 11-07-2021 14:55-0400 Diastolic blood pressure 60 mm[Hg] Mitsy NELSON [facility] 11-07-2021 14:55-0400 Heart rate 76 /min Misty OMAR [facility] 11-07-2021 14:55-0400 SaO2% (BldA) [Mass fraction] 99 % Misty OMAR [facility] 11-07-2021 14:55-0400 Systolic blood pressure 100 mm[Hg] Misty NELSON [facility] Encounters Encounter Date Encounter Type Care Provider Facility Start: 03-26-2024 End: 03-26-2024 ambulatory [facility] Work Phone: Start: 03-26-2024 End: 03-26-2024 Patient encounter procedure [facility] Work Phone: Start: 12-09-2023 End: 12-09-2023 Patient encounter procedure MD Alisha Sellers Work Phone: [facility] Work Phone: Start: 12-09-2023 End: 12-09-2023 ambulatory MD Alisha Sellers Work Phone: [facility] Work Phone: Start: 10-12-2023 End: 10-12-2023 ambulatory MD Alisha Sellers Work Phone: [facility] Work Phone: Start: 10-12-2023 End: 10-12-2023 Patient encounter procedure MD Alisha Sellers Work Phone: [facility] Work Phone: Start: 10-04-2023 End: 10-04-2023 Patient encounter procedure MD Alisha Sellers Work Phone: [facility] Work Phone: Start: 10-04-2023 End: 10-04-2023 ambulatory MD Alisha Sellers Work Phone: [facility] Work Phone: Start: 10-04-2023 Encounter for genera l adult medical examination without abnormal findings Natalia Cedillo [facility] Start: 09-12-2023 End: 09-12-2023 ambulatory [facility] Work Phone: Start: 09-12-2023 End: 09-12-2023 Patient encounter procedure [facility] Work Phone: Start: 09-07-2023 Non-patient / Non-visit [facility] Work Phone: Start: 08-17-2023 End: 08-17-2023 ambulatory ANGEL RIZO Not Available Start: 08-01-2023 End: 08-01-2023 ambulatory HANNAH LUU Not Available Start: 07-20-2023 Non-patient / Non-visit [facility] Work Phone: Start: 03-24-2023 End: 03-24-2023 ambulatory Alisha Sellers Other [employer] Other Start: 03-24-2023 Telephone encounter Alisha Sellers [facility] Start: 12-26-2022 End: 12-26-2022 ambulatory Kedar Diaz Other [employer] Other Start: 12-26-2022 Telephone encounter Kedar Diaz [facility] Start: 12-03-2022 End: 12-03-2022 ambulatory MD Alisha Sellers Work Phone: [facility] Work Phone: Start: 12-03-2022 End: 12-03-2022 Patient encounter procedure MD Alisha Sellers Work Phone: [facility] Work Phone: Start: 09-26-2022 End: 09-26-2022 ambulatory Alisha Sellers Other [employer] Other Start: 09-26-2022 Telephone encounter Alisha Sellers [facility] Start: 06-29-2022 End: 06-30-2022 ambulatory Sharan Asher Facility:[facility] Start: 06-28-2022 End: 06-28-2022 ambulatory Alisha Sellers Other [employer] Other Start: 06-28-2022 Telephone encounter Alisha Sellers [facility] Start: 06-17-2022 End: 06-17-2022 ambulatory Alisha Sellers Other [employer] Other Start: 06-17-2022 Telephone encounter Alisha Sellers [facility] Start: 06-14-2022 End: 06-15-[address] ALISHA SELLERS Facility: Start: 06-13-2022 Encounter for genera l adult medical examination without abnormal findings Alisha Sellers [facility] Start: 06-13-2022 Office outpatient vi sit 15 minutes Alisha Sellers [facility] Start: 06-13-2022 End: 06-14-[address] ALISHA SELLERS Facility: Start: 12-29-2021 End: 12-29-2021 Emergency department patient visit Bernabe Eller Facility:[facility] Start: 12-29-2021 End: 12-29-2021 Emergency department patient visit Bernabe Eller [facility] Start: 11-16-2021 End: 11-17-2021 ambulatory YOUSUF WOLFF Facility: Start: 11-07-2021 ambulatory Bernabe Eller Facility:[facility] Start: 11-07-2021 End: 11-08-2021 ambulatory Misty NELSON Facility:[facility] Start: 11-07-2021 End: 11-07-2021 Lab Drop off Misty NELSON [facility] Start: 11-07-2021 End: 11-07-2021 Patient encounter procedure Misty NELSON [facility] Start: 04-14-2019 Gynecological examin ation normal Kedar Diaz Other [facility] [employer] Other Procedures Date Procedure Procedure Detail Performing Clinician Start: 07-27-2018 Breast structure (yu dy structure) Misty NELSON Start: 05-01-2017 Viral screening Artemio Diaz Other Start: 02-26-2015 Hysterectomy Misty GEE Start: 09-27-2006 visit Artemio Diaz Other Cosmetic surgery Alisha ramon Other Tuberculosis screening Ben Diaz Other Plan of Treatment Date Care Activity Detail Author Start: 03-26-2024 Patient referral [facility] Work Phone: Start: 12-09-2023 MG Breast - bilatera l Screening [facility] Start: 12-09-2023 Screening mammograph y of bilateral breasts MM screening mammo BI w/CAD [facility] Start: 10-04-2023 [facility] Start: 12-03-2022 Screening mammograph y of bilateral breasts MM screening mammo BI w/CAD [facility] Patient referral [facility] Work Phone: Immunizations Immunization Date Immunization Notes Care Provider Fa cility 09-27-2019 hepatitis B vaccine, adult dosage Kedar Diaz Other [facility] 12-21-2018 tetanus toxoid, redu em diphtheria toxoid, and acellular pertussis vaccine, adsorbed Misty NELSON [facility] Payers Date Payer Category Payer Self-pay [id number] 2022 Unknown [id number] 2016 Unknown [id number] 2. [id number] 1975 Unknown [id number] 2.16.84 0.1.003562.3.579.2.593 1975 Unknown [id number] 2.16.84 0.1.704623.3.579.2.593 1975 Unknown [id number] 2.16.84 0.1.526148.3.579.2.593 1975 Unknown [id number] 2.16.8 40.1.296802.3.579.2.727 1975 Unknown [id number] 2.16.8 40.1.379481.3.579.2.727 1975 Unknown [id number] 2.16.8 40.1.322162.3.579.2.727 1975 Unknown [id number] 2.16.8 40.1.837685.3.579.2.727 1975 Unknown [id number] 2.16.8 40.1.558988.3.579.2.727 1975 Unknown [id number] 2.16.84 0.1.180783.3.579.2.1259 1975 Unknown [id number] 2.16.84 0.1.286423.3.579.2.1259 1959 Unknown [id number] Unknown [id number] 2.16.8 40.1.466334.3.579.2.531 Unknown [id number] 2.16.8 40.1.197440.3.579.2.531 Unknown [id number] 2.16.8 40.1.927728.3.579.2.531 Social History Date Type Detail Facility Start: 11-07-2021 End: 05-25-2023 Tobacco smoking status Ex-smoker (finding) [facility] Tobacco smoking status Never [facility] Sex Assigned At Female [facility] Start: 1975 Sex Assigned At Female F [facility] Functional Status Date Assessment Result Facility 12-29-2021 Functional Status Yes [facility] 11-07-2021 Functional Status N/A [facility] Clinical Notes 11-07-2021 to 12-26-2022 Note Date & Type Note Facility 12-26-2022 Evaluation note Encounter Date Diagnosis Assessment Notes Nov, Anxiety (ICD-10 - F41.9) [employer] [facility] [employer] Other 05-01-2023 Evaluation note* Encounter Date Diagnosis Assessment Notes Treatment Notes Treatment Clinical Notes September, Anxiety (ICD-10 - F41.9) [employer] Other 01-16-2023 Evaluation note* Encounter Date Diagnosis [...] of medication and no changes are needed [employer] Other 08-03-2022 Hospital Discharge instructions Patient Education 12/29/2021 21:35:07 Sinusitis, Adult, Ufnk-qz-Nbhp Sinusitis, Adult Sinusitis is soreness and swelling [...] at home: Medicines Take, use, or apply yzgm-dae-hicgmwu and prescription medicines only as told by [...] is no soap and water, 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 Do not smoke. Avoid being around people [...] 10/31/2008 Document Revised: 10/15/2018 Document Reviewed: 10/15/2018 [employer] Patient Education 2020 [employer]. 12/29/2021 21:35:07 Pharyngitis, Xzjs-fi-Fyoc Pharyngitis Pharyngitis is a sore throat (pharynx). This is when there is redness, pain, and swelling in your throat. Most of the time, this condition gets better on its own. In some cases, you may need medicine. Follow these instructions at home: Take okku-fui-exlzlsi and prescription medicines only as told by [...] 10/31/2008 Document Revised: 04/27/2018 Document Reviewed: 06/20/2017 [employer] Patient Education [employer] Follow Up Care 12/29/2021 20:07:17 With:Call for test results Address:Unknown When: Unknown With:ALISHA SELLERS Address: [address] [place] [address] Business (1) When:01/01/2022 21:34:23 only if needed [facility]08-03-2022 Evaluation + Plan noteExtracted from: Title:ED Note Author:Bernabe Eller MD Date: 2 1. Acute sinusitis (J01.90: Acute sinusitis, unspecified) 2. Acute pharyngitis (J02.9: Acute pharyngitis, unspecified) Orders: azithromycin, 250 mg, Oral, As Directed, # 6 tab(s), Refills(s) 0, Pharmacy: [facility] #[id number], 155, cm, 12/29/21 20:14:00 EDT, Height/Length Dosing, 49, kg, 12/29/21 20:14:00 EDT, Weight Dosing guaifenesin-pseudoephedrine, 1 tab(s), Oral, q12hr for 7 day(s), 14 tab(s), Refill(s) 0, [id number], 155, cm, 12/29/21 20:14:00 EDT, Height/Length Dosing, 49, kg, 12/29/21 20:14:00 EDT, Weight Dosing Rapid COVID Antigen ([facility]) Rapid Strep w/rfx Diagnostic Tests Pending * Group A Strep by PCR 12/29/21 [facility]06-21-2022 NotePROCEDURE: XR FOOT RT MIN 3 VIEWS COMPARISON: None. HISTORY: Pain in right foot FINDINGS: BONES:No acute fracture or dislocation. Mild hallux valgus. Mild osteoarthropathy of the first metatarsal-phalangeal joint SOFT TISSUES:Negative. No visible soft tissue swelling. EFFUSION:None visible. OTHER: Negative. IMPRESSION: No acute abnormality Electronically authenticated by: FILIBERTO CHASE Date: 2021-11-16 21:28[facility]06-12-2022 Hospital Discharge instructions Patient Education 11/07/2021 15:26:07 [...] alcohol may irritate the prostate. Medicines Take nuhi-nkz-rvntypp and prescription medicines only as told by [...] 02/10/2005 Document Revised: 04/27/2018 Document Reviewed: 03/01/2018 [employer] Patient Education 2020 [employer]. Follow Up Care 11/07/2021 14:04:03 With:ALISHA SELLERS MD, FAM Address: [address] [place] [id number]- When: Unknown [facility] 06-12-2022 Evaluation + Plan note Diagnostic Tests Pending * Chlamydia/Gonococcus, JACEY 11/07/21 * Urine Culture 11/07/21 * Vaginitis/Vaginosis, DNA Probe [facility]21 [facility] No data available for this section [facility] [employer] Other Evaluation noteNo assessment information available [facility] Work Phone: Evaluation note* Diagnosis Onset Date Resolution Status Acute hemorrhoid acute Anxiety acute Bunion of great toe acute [facility] Work Phone: Evaluation note* Diagnosis Onset Date Resolution Status Screening for colon cancer a cute [facility] Work Phone: History general Narrative - Reported* [...] History see surgical history Hospitalization History CHILD [facility] [employer] Other Hospital Discharge instructions No data available for this section [facility]* Referral to Gastroenterology Time Frame: 03/26/24, Location: None [facility] Work Phone: Progress note No data available for this section [facility] Summary Purpose Family History Relationship Condition Age at Onset Recorded Date/T edel father Hypercholesterolemia Unknown Heart disease Unknown Not Specified Family history of mental disorder Unknow n Hypertension Unknown Relationship Condition Age at Onset Recorded Date/T edel father Hypercholesterolemia Unknown Heart disease Unknown mother Family history of mental disorder Unknown Hypertension Unknown Advance Directives Advance Directive Response Recorded Date/ Time Advance [...] Anxiety Bunion of great toe Chief Complaint Check Up Reason for Visit Screening for colon cancer Additional Source Comments INFORMATION SOURCE (unrecogn ized section and content) DATE CREATED AUTHOR 07/09/2021 [facility] dical Specialist DATE CREATED AUTHOR AUTHOR'S ORGANIZ ATION 06/16/2022 [facility] DATE CREATED AUTHOR AUTHOR'S ORGANIZ ATION 07/02/2022 [facility] DATE CREATED AUTHOR AUTHOR'S ORGANIZ ATION 08/18/2023 [facility] dical Specialists EPIC DATE CREATED AUTHOR AUTHOR'S ORGANIZ ATION 12/14/2023 [facility] Care Team (unrecognized sect [...] 2023 Team Status: Inactive Member Role Status Chaya Sellers MD Primary Care Provider Active Start: October 12, 2023 End: October 12, 2023 Natalia Cedillo APRN Attending Provider Active Start: October 12, 2023 End: October 12, 2023 Team Status: Inactive Member Role Status Chaya Sellers MD Primary Care Provider Active Start: December 09, 2023 End: December 09, 2023 Referral Self Attending Provider Active Start: Macarena [email or web address] End: December 09, 2023 Hannah Luu DO Referring Provider Active S tart: December 09, 2023 End: December 09, 2023 Team Status: Active Member Role Status Chaya Sellers MD Primary Care Provider Active Start: [...] Care Provide r, Attending Provider Active Start: March 26, 2024 End: March 26, 2024 REASON FOR VISIT (unrecogniz ed section and [...] BE BASED ON THE PRIMARY CLINICAL RECORDS. [facility]. provides no warranty or guarantee of the accuracy or completeness of information in this document.
== END 2024-06-13 09:15 | disposition home or self-care (01) ==
PROVIDERS: PCP Family Medicine; Visit Provider Family Medicine
DX: M54.2 Cervicalgia (principal)
CPT/HCPCS: 72050

== ENCOUNTER 2024-10-02 09:40 | Outpatient (OUT) | payer OTHER, SELFPAY ==
[2024-10-02 10:06] LABS: Basophils Percent Auto 0.7 % (0.2-2.0); Eosinophils Absolute Auto 0.2 10^3/uL (0.0-0.7); Eosinophils Percent Auto 3.4 % (0.9-7.0); Hematocrit 37.8 % (36.0-48.0); Hemoglobin 12.6 g/dL (12.0-16.0); Immature Granulocytes Abs Auto 0.02 10^3/uL (0.00-0.03); Immature Granulocytes Pct Auto 0.3 % (0.0-0.5); Lymphocytes Absolute Auto 2.2 10^3/uL (1.2-3.8); Lymphocytes Percent Auto 37.5 % (20.5-60.0); Mean Corpuscular HGB Conc 33.3 g/dL (29.9-35.2); Mean Corpuscular Hemoglobin 29.3 pg (26.7-34.0); Mean Corpuscular Volume 87.9 fL (81.0-99.0); Mean Platelet Volume 10.3 fL (9.5-13.5); Monocytes Absolute Auto 0.4 10^3/uL (0.3-0.8); Monocytes Percent Auto 6.5 % (1.7-12.0); Neutrophils Percent Auto 51.6 % (43.0-75.0); Platelet Count 244 10^3/uL (150-450); Red Cell Distribution Width 12.8 % (11.0-15.0); White Blood Count 5.9 10^3/uL (4.0-11.0)
[2024-10-02 10:30] LABS: Alanine Aminotransferase 21 U/L (14-59); Albumin Level 3.6 g/dL (3.4-5.0); Alkaline Phosphatase 52 U/L (46-116); Anion Gap 10.5; Aspartate Amino Transferase 15 U/L (15-37); BUN Creatinine Ratio 18.8; Bilirubin Total 0.4 mg/dL (0.2-1.0); Calcium 9.1 mg/dL (8.5-10.1); Carbon Dioxide 29.4 mmol/L (21.0-32.0); Chloride 102 mmol/L (98-107); Estimated GFR (African America >60 (>=60 mL/min/1.73m^2); Estimated GFR (Non-African Ame >60 (>=60 mL/min/1.73m^2); Globulin 3.6 g/dL; Glucose 91 mg/dL (74-106); Potassium 3.9 mmol/L (3.5-5.1); Sodium 138 mmol/L (136-145); TSH W/ REFLEX FT4 1.881 uIU/mL (0.358-3.740); Total Protein 7.2 g/dL (6.4-8.2)
[2024-10-03 04:09] LABS: Vitamin B12 412 pg/mL (232-1245)
== END 2024-10-02 09:41 | disposition home or self-care (01) ==
LOC: LAB 09:42
PROVIDERS: PCP Family Medicine; Visit Provider Family Medicine
DX: E55.9 Vitamin D deficiency, unspecified (principal); R53.83 Other fatigue
CPT/HCPCS: 36415; 80053; 82306; 82533; 82607; 82728; 82746; 84443; 85025